=== PATIENT | female | born 1930 | race Caucasian/White ===

== ENCOUNTER 2016-11-07 10:54 | Emergency (ER) | payer MEDICARE ==
[~2016-11-07 10:54] MED LIST: atorvastatin; coumadin; lipitor; lisinopril; metoprolol
[2016-11-07 10:55] VITALS: BP 185/64; PULSE 87; RESP 20; O2SAT 95
--- NOTE | 2016-11-07 10:56 | ED.REPORT ---
HPI-Trauma Minor / Fall Date of Service Nov 07, 2016 ED Provider: Dr. Pipo Alcala M.D. An 83 year old female with a history of hypertension, hyperlipidemia, extensive peripheral vascular disease, memory loss, atherosclerosis, sick sinus syndrome, and previous [place] on warfarin s/p pacemaker placement presents to the ED via EMS from her assisted living home with head trauma after an unwitnessed fall this morning when she woke up. She hit the back of head on the corner of a table but is unsure whether or not she lost consciousness. EMS found her hypotensive with a systolic pressure of 224 but otherwise normal vital signs. The patient denies any pain or other symptoms. She is a poor historian. Her current anticoagulation status is unknown. Nursing Notes Stated Complaint: GLF Nursing Notes Reviewed: Yes Allergies: Coded Allergies: diltiazem (Verified Allergy, Severe, 11/09/12) lorazepam (Verified Allergy, Intermediate, 11/07/16) pantoprazole (Verified Allergy, Intermediate, 11/07/16) Scheduled Aspirin Chew (Aspirin Chew) 81 Mg Chew 81 MG PO DAILY Lisinopril (Lisinopril) 5 Mg Tablet 5 MG PO DAILY Paroxetine (Paroxetine) 10 Mg Tablet 10 MG PO DAILY General Time Seen by MD: 10:56 Chief Complaint Fall, Head injury Hx Obtained From: Patient, EMS Unable to Obtain Hx: Patient condition Arrived By: Ambulance Onset Occurred: 1 - 4 hours ago Symptom Duration: Since onset Caused by: Accidental Location: Head Quality: Painful Severity: Current: Moderate Severity: Maximum: Moderate Associated with: Denies: Shortness of breath, Vomiting Pertinent Negative: Relieved by nothing Context: Immunizations Unknown Recent Healthcare: No recent doctor visit Past Medical History Past Medical History Notes: Past Medical History Anticoagulated Hyperlipidemia Hypertension Extensive peripheral vascular disease, status post fem-fem grafting with multiple revisions Anxiety Atherosclerosis of [place] arteries of extremities with intermittent claudication, bilateral legs Memory loss Hx of [place] Sick sinus syndrome Past Surgical History Pacemaker placement Smoking History Never Smoker Social History Lives in assisted living facility Alcohol Use: Denies alcohol use Drug Use: Denies drug use Ambulatory Status Independent Review of Systems Respiratory: Denies: Non-productive cough, Shortness of breath Musculoskeletal: Denies: Neck pain Neurologic: Denies: Headache Complete sys rev & neg: except as marked. GI: Denies: Vomiting Physical Exam Physical Exam Notes: Initial Vital Signs Vital Signs (First) Date Time Temp Pulse Resp B/P Pulse Ox O2 Delivery O2 Flow Rate FiO2 11/07/16 10:55 36.8 87 20 185/64 95 Room Air Initial VS: Reviewed ENT: Conjunctiva normal, No scleral icterus Respiratory: Breath sounds normal, Clear to auscultation, No respiratory distress Cardiovascular: Regular rate & rhythm, Heart sounds normal Abdomen / GI: Soft, Non-tender Skin: Warm, Dry, No cyanosis Psychiatric: Mood/affect normal, Behavior normal General/Constitutional: Awake, Alert, No acute distress Head / Eyes: Normocephalic Subcutaneous lipoma on left side of occiput with no evidence of intracranial trauma Neurologic: Speech NL, No motor deficits, No sensory deficits Interpretation & Diagnostics Lab Results Interpretation Result Diagram: 11/07/16 1100 11/07/16 1100 Test 11/07/16 11:00 White Blood Count 9.4th/mm3 (3.8-10.1) Red Blood Count 4.44mil/mm3 (3.90-5.20) Hemoglobin 13.3g/dL (12.0-15.6) Hematocrit 41.9% (35.0-46.0) Mean Corpuscular Volume 94.4fL (81-100) Mean Corpuscular Hemoglobin 30.0pg (27.0-35.0) Mean Corpuscular Hemoglobin Concent 31.7% (32.0-37.0) Red Cell Distribution Width 16.7% (12.3-15.4) Platelet Count 244bil/L (150-400) Neutrophils (%) (Auto) 67.6% (40-74) Lymphocytes (%) (Auto) 21.8% (14-46) Monocytes (%) (Auto) 7.9% (4-12) Eosinophils (%) (Auto) 1.7% (0-5) Basophils (%) (Auto) 0.4% (0-3) Prothrombin Time 10.9sec (8.1-12.5) Prothromb Time International Ratio 1.02ratio Sodium Level 143mEq/L (134-144) Potassium Level 4.7mEq/L (3.5-5.2) Chloride Level 106mEq/L (97-108) Carbon Dioxide Level 24mmol/L (18-29) Blood Urea Nitrogen 23mg/dL (8-27) Creatinine 0.97mg/dL (0.57-1.00) Estimat Glomerular Filtration Rate 78mL/min (>59) Glucose Level 95mg/dL (60-99) Calcium Level 9.5mg/dL (8.5-10.1) Total Bilirubin 0.6mg/dL (0.0-1.2) Aspartate Amino Transf (AST/SGOT) 16U/L (0-50) Alanine Aminotransferase (ALT/SGPT) 13U/L (0-32) Alkaline Phosphatase 103U/L (25-165) Total Protein 7.3g/dL (6.4-8.4) Albumin 4.1g/dL (3.4-5.0) Re-Eval/Medical Decision Med Decision/Clinical Course Was an initial report of patient being on warfarin, family and patient stated this is no longer the case. Source of Hx: Old records Re-Evaluation/Progress #1: Time of Eval: 11:48 Patient Status: Condition improved Re-Evaluation/Progress Note: Discussed with patient lab results, diagnosis, and plan for discharge. Follow-up and return to the ER instructions given. Patient agrees with plan for care and all questions were addressed. Re-Evaluation/Progress #2: Time of Eval: 12:06 Re-Evaluation/Progress Note: Discussed patient's case with her son. He agrees with plan for care and all questions were addressed. Counseled Regarding: Diagnosis, Lab results, Need for follow-up, When/why to return to ED Discharge & Departure Impression: Primary Impression: Fall from ground level Disposition: Home Discharge Condition All VS Reviewed: Yes Condition: Stable Patient Instructions: Fall Prevention for Older Adults (GEN) Additional Instructions: No significant injury is identified today. Your INR is normal, no evidence of anticoagulation currently. If you have any significant ongoing problems, call your doctor or return to the emergency department. Oseiibe Attestation Portions of this note were transcribed by Meghann Hernandez. I, Dr. Alcala, personally performed the history, physical exam, and medical decision-making; I reviewed and confirmed the accuracy of the information in the transcribed note. Signed by: Nicole Humphries, 11/07/2016, 12:31 Pipo Alcala MD Nov 07, 2016 10:56 MEGHANN HERNANDEZ Nov 07, 2016 11:16
[2016-11-07 11:22] LABS: BASOPHILS % (AUTO) 0.4 % (0-3); EOSINOPHILS % (AUTO) 1.7 % (0-5); MONOCYTES % (AUTO) 7.9 % (4-12); Mean Corpuscular Volume 94.4 fL (81-100); NEUTROPHILS % (AUTO) 67.6 % (40-74); Platelet Count 244 bil/L (150-400)
[2016-11-07 11:25] LABS: INR 1.02 ratio
[2016-11-07 12:15] VITALS: BP 173/110; PULSE 70; RESP 20; O2SAT 94
[2016-11-07] MEDS ORDERED: PARO10TA2 PO (12:16)
[2016-11-07] MEDS ORDERED: PARO20TA5 PO (12:16)
[2016-11-07] MEDS ORDERED: LISI-571 PO (12:17)
[2016-11-07] MEDS ORDERED: ASPI81TA3 PO (12:17)
== END 2016-11-07 12:15 | disposition home or self-care (01) ==
LOC: EDBD 10:54 → EDUNIT# 10:54 → SED 10:54
DX: S09.90XA Unspecified injury of head, initial encounter (principal); W18.30XA Fall on same level, unspecified, initial encounter; Y93.89 Activity, other specified; Y99.8 Other external cause status; Y92.122 Bedroom in nursing home as the place of occurrence of the external cause; I10 Essential (primary) hypertension; I25.2 Old myocardial infarction; Z86.79 Personal history of other diseases of the circulatory system; Z86.39 Personal history of other endocrine, nutritional and metabolic disease; Z95.0 Presence of cardiac pacemaker; Z79.01 Long term (current) use of anticoagulants; Z79.82 Long term (current) use of aspirin; Z88.8 Allergy status to other drugs, medicaments and biological substances; Z88.5 Allergy status to narcotic agent

== ENCOUNTER 2016-12-05 08:45 | Inpatient (IN) | payer MEDICARE ==
[~2016-12-05] VITALS: Ht 170.2 cm; Wt 74.2 kg
[~2016-12-05 08:45] MED LIST changes: +ASPI81TA3 PO; +LISI-571 PO; +PARO10TA2 PO; -atorvastatin; -coumadin; -lipitor; -lisinopril; -metoprolol
[2016-12-05 08:54] VITALS: BP 189/79; PULSE 83; O2SAT 99
[2016-12-05 09:51] LABS: BASOPHILS % (AUTO) 0.5 % (0-3); EOSINOPHILS % (AUTO) 2.9 % (0-5); MONOCYTES % (AUTO) 9.2 % (4-12); Mean Corpuscular Hemoglobin 30.5 pg (27.0-35.0); Mean Corpuscular Volume 96.5 fL (81-100); NEUTROPHILS % (AUTO) 68.9 % (40-74); Platelet Count 223 bil/L (150-400)
[2016-12-05 10:12] LABS: APPEARANCE,URINE CLEAR (CLEAR,HAZY); COLOR,URINE YELLOW (YELLOW); OCCULT BLOOD,URINE NEGATIVE (NEGATIVE); PH,URINE 5.5 (5.0-8.0); UROBILINOGEN,URINE NORMAL (NORMAL)
--- NOTE | 2016-12-05 11:04 | DRSVH ---
PROCEDURE: US VENOUS LEG DUPLEX BILATERAL INDICATIONS: BLE swelling R>L TECHNIQUE: Real-time imaging, as well as color and pulse Doppler interrogation, were performed of the deep veins of both legs from the inguinal ligament to the popliteal fossa. COMPARISON: None. FINDINGS: The more superior right-sided deep veins are normally compressible, and free of intralumin al thrombus. Color and pulse Doppler demonstrate normal phasic intravascular flow. There is normal augmentation response to distal compression maneuver in these vessels. In contrast, within the dista l superficial femoral vein there is nonocclusive clot and this extends into the popliteal vein where occlusive clot seen and posterior tibial vein occlusive clot also is within the catheter. No DVT is seen at the left lower extremity.. IMPRESSION: Left lower extremity free of thrombosis. Right lower extremity superiorly shows no throm bosis within the deep venous system but there is partially occlusive thrombus in the distal superfici al femoral vein contiguously extending into the popliteal vein and occlusive thrombus is also seen in one of the 2 posterior tibial paired veins. Dictated by: Rodrigo Ricketts M.D. on 12/05/2016 at 10:58 Approved by: Rodrigo Ricketts M.D. on 12/05/2016 at 11:03
--- NOTE | 2016-12-05 11:08 | DRSVH ---
PROCEDURE: X-RAY CHEST ONE VIEW, PORTABLE ([id number]) INDICATIONS: probable chf TECHNIQUE: One view of the chest was acquired. COMPARISON: [facility], CR, CHEST 2VW, 11/09/2012, 3:56. [facility], CR, NICOLE [address] 1VW (PORTABLE), 02/10/2010, 19:52. FINDINGS: Surgical changes and devices: There is a cardiac pacemaker in expected position. Sternotomy and CABG. Lungs and pleura: Left basilar scars/atelectasis. No pleural effusions or pneumothorax. Mediastinum: Mediastinal contours appear normal. Heart size is normal. Bones and chest wall: No suspicious bony lesions. Overlying soft tissues appear unremarkable. IMPRESSION: No acute cardiopulmonary disease. Dictated by: David Evans M.D. on 12/05/2016 at 10:55 Approved by: David Evans M.D. on 12/05/2016 at 11:07
--- NOTE | 2016-12-05 12:46 | ED.REPORT ---
HPI-General Illness Date of Service Dec 05, 2016 ED Provider: Javier Cote MD 86yoF with PMH remarkable for CAD with CABGx2 (reportedly in 2009) as well as a pacer placed in 2009 for sick sinus syndrome as well as PVD with numerous stents placed in her legs bilaterally who presents with failure to thrive from [facility]. 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 Her son in law came in with her today. He reports that she was seen by her PCP Dr. Rojas at [facility] 2 days ago after numerous falls and diagnosed with UTI and given Nitrofurantoin. The patient was not improving and was having increased leg swelling and was told to come to the hospital for evaluation. The patient denies dysuria, increased urinary frequency or urgency. She denies Fever chills or night sweats. She states that last week she had diarrhea. Nursing Notes Stated Complaint: WEAKNESS Chief Complaint: General Complaint Nursing Notes Reviewed: Yes Allergies: Coded Allergies: diltiazem (Verified Allergy, Severe, 11/09/12) lorazepam (Verified Allergy, Intermediate, 11/07/16) pantoprazole (Verified Allergy, Intermediate, 11/07/16) Scheduled Aspirin Chew (Aspirin Chew) 81 Mg Chew 81 MG PO QAM Lisinopril (Lisinopril) 5 Mg Tablet 5 MG PO QAM Paroxetine (Paroxetine) 20 Mg Tablet 20 MG PO QAM General Time Seen by MD: 09:00 [facility] Chief Complaint Not feeling well, Other (leg swelling) Hx Obtained From: Patient, Son (in law), Primary care provider (called [facility] and spoke with Dr. Rojas's partner Casey Mcneal M.D.) Arrived By: Ambulance Sudden in Onset?: No Onset Occurred: More than a week ago... (2 weeks) Context of Onset: Recent antibiotic use Symptom Duration: Since onset Severity: Current: No pain currently Severity: Maximum: No pain Recent Healthcare: Recent doctor visit Similar Sx Previous: No Past Medical History Past Medical History Hyperlipidemia Hypertension CAD with CABG x2 Extensive peripheral vascular disease, status post fem-fem grafting with multiple revisions Anxiety Atherosclerosis of [place] arteries of extremities with intermittent claudication, bilateral legs Memory loss Hx of [place] Sick sinus syndrome Reports: Hyperlipidemia, Hypertension Past Surgical History Pacemaker placement Reports: CABG Smoking History Never Smoker Social History Lives in assisted living facility Alcohol Use: Denies alcohol use Drug Use: Denies drug use Ambulatory Status Independent Review of Systems Complete sys rev & neg: except as marked. Physical Exam Vital Signs Vital Signs Date Time Temp Pulse Resp B/P Pulse Ox O2 Delivery O2 Flow Rate FiO2 12/05/16 08:54 36.6 83 189/79 99 Room Air General/Constitutional: Well-developed, Well-nourished Head / Eyes: Atraumatic, Normocephalic, PERRL ENT: Mucous membranes moist, Conjunctiva normal, No scleral icterus Neck: Supple, Non-tender, Full range of motion Abdomen / GI: Soft, Non-tender, No guarding, No rebound, No distention Back: No CVA tenderness Lymphatic: No lymphadenopathy General/Constitutional: Awake, Alert, No acute distress, Cooperative, Not toxic appearing Alertness: Positive: Disoriented Respiratory / Chest: Breath sounds = bilat, No respiratory distress, No wheezing, No stridor, No chest tenderness Rales / Rhonchi: Positive: Rales bilateral up to 1/3 Chest Wall / Ribs: Positive: Implanted cardiac device Heart Sounds / Murmur: Positive: Systolic murmur present.. (moderate left upper sternal boarder) Lower Ext Edema: Positive: Bilateral 3+, Knee, Pitting Abdomen: Non-tender, No guarding, No rebound, BS normoactive Skin: Warm Color / Condition: Positive: Erythema localized (lower extremities) lower extremity induration, erythema, and warmth consistent with venous stasis changes Lower right extremity pretibial abrasion with serosangious drainage, without purulence or fluctuance noted Mental Status: Positive: Disoriented to place, Disoriented to time Psychiatric: Mood NL Abnormal Mood/Affect: Positive: Flat affect Interpretation & Diagnostics Lab Results Interpretation Result Diagram: 12/05/16 0940 12/05/16 0940 Test 12/05/16 09:40 12/05/16 09:47 White Blood Count 7.8th/mm3 (3.8-10.1) Red Blood Count 4.29mil/mm3 (3.90-5.20) Hemoglobin 13.1g/dL (12.0-15.6) Hematocrit 41.4% (35.0-46.0) Mean Corpuscular Volume 96.5fL (81-100) Mean Corpuscular Hemoglobin 30.5pg (27.0-35.0) Mean Corpuscular Hemoglobin Concent 31.6% (32.0-37.0) Red Cell Distribution Width 16.3% (12.3-15.4) Platelet Count 223bil/L (150-400) Neutrophils (%) (Auto) 68.9% (40-74) Lymphocytes (%) (Auto) 18.0% (14-46) Monocytes (%) (Auto) 9.2% (4-12) Eosinophils (%) (Auto) 2.9% (0-5) Basophils (%) (Auto) 0.5% (0-3) Sodium Level 145mEq/L (134-144) Potassium Level 3.9mEq/L (3.5-5.2) Chloride Level 106mEq/L (97-108) Carbon Dioxide Level 23mmol/L (18-29) Blood Urea Nitrogen 21mg/dL (8-27) Creatinine 0.64mg/dL (0.57-1.00) Estimat Glomerular Filtration Rate 126mL/min (>59) Glucose Level 103mg/dL (60-99) Calcium Level 9.3mg/dL (8.5-10.1) Total Bilirubin 0.6mg/dL (0.0-1.2) Aspartate Amino Transf (AST/SGOT) 17U/L (0-50) Alanine Aminotransferase (ALT/SGPT) 18U/L (0-32) Alkaline Phosphatase 117U/L (25-165) Pro-B-Type Natriuretic Peptide 203.7pg/mL (0-738) Total Protein 7.2g/dL (6.4-8.4) Albumin 4.4g/dL (3.4-5.0) Procalcitonin 0.06ng/mL (0.00-0.08) Hold Martinez Top Tube Received (Received) Urine Color Yellow (YELLOW) Urine Appearance Clear (CLEAR,HAZY) Urine pH 5.5 (5.0-8.0) Urine Specific [place] 1.025 (1.003-1.035) Urine Protein Negativemg/dL (NEG,TRACE) Urine Glucose (UA) Negativemg/dL (NEGATIVE) Urine Ketones Tracemg/dL (NEGATIVE) Urine Occult Blood Negative (NEGATIVE) Urine Nitrite Negative (NEGATIVE) Urine Bilirubin Negative (NEGATIVE) Urine Urobilinogen Normalmg/dL (NORMAL) Urine Leukocyte Esterase Negative (NEGATIVE) Urine RBC 0-2/hpf (0-2) Urine WBC 0-5/hpf (0-5) Urine Epithelial Cells Occasional/hpf (NONE-MOD) Urine Crystals None seen (NONE SEEN) Urine Bacteria None/hpf (NONE-FEW) Urine Hyaline Casts None/lpf (NONE) Urine Granular Casts None seen (NONE SEEN) Urine Waxy Casts None seen (NONE SEEN) Urine Red Blood Cell Casts None seen (NONE SEEN) Urine White Blood Cell Casts None seen (NONE SEEN) Urine Mucus None seen (None Seen) Urine Trichomonas None seen (NONE SEEN) Urine Yeast None (NONE SEEN) Urinalysis Comment None Urine Culture Reflexed Not indicated Re-Eval/Medical Decision Med Decision/Clinical Course US showed occlusive DVT in right popliteal. Patient has known coronary artery disease but no previous diagnosis of CHF. Clinical signs of CHF with new murmur should obtain and echo and begin lasix therapy as well as beta sierra if tollerated, patient is already on ACEI. Plan to admit given multiple comorbidities and need for anticoagulation with recent history of falls, allow admitting physician to decide on heparin drip v lovenox with out without bridge to coumadin or novel anticoagulant with reversibility Pradaxa Source of Hx: [place] Consultation : Referral / Consult Name: Oscar Candelario MD Consulted With: Hospitalist Requested Call at: 11:30 Aws Solution Architect: Accepts admit Discharge & Departure Primary Impression: DVT of popliteal vein Additional Impression: CHF exacerbation Disposition: ADMITTED TO HOSPITAL Referrals: Natividad Rojas MD (PCP) Attending Statement I saw and evaluated the patient with the resident as above. I independently evaluated the patient and agree with plan as above. In brief, 86-year-old female history of CAD and blood clots in the past presenting with frequent falls and right lower extremity swelling and pain. Right lower extremity ultrasound shows occlusive DVT popliteal. No sign symptoms PE at this time. Patient with frequent falls at home. She feels very weak. Patient will be admitted for DVT, weakness, frequent falls. We will start on Lovenox defer oral anticoagulation to hospitalist. copies to: Natividad Rojas MD, NICHOLAS K DO Dec 05, 2016 09:47 Javier Cote MD Dec 05, 2016 14:19
[2016-12-05] MEDS ORDERED: Acetaminophen 32 mg/mL 5 mL Liquid PO ONE (13:05)
[2016-12-05] MEDS ORDERED: PARO20TA5 PO (13:14)
[2016-12-05] MEDS ORDERED: Acetaminophen 32.5 mg/mL 20 mL Liquid PO ONE (13:20)
[2016-12-05] MEDS ORDERED: Ondansetron 2 mg/mL 2 mL Inj IVPUSH PRN (13:35)
[2016-12-05] MEDS ORDERED: Alum-Mag Hydrox-Simeth 30 mL Suspension PO PRN (13:35)
[2016-12-05] MEDS ORDERED: Polyethylene Glycol (PEG) 17 Gm Powder PO PRN (13:35)
[2016-12-05 14:23] VITALS: BP 144/78; PULSE 77; RESP 16
[2016-12-05 14:44] VITALS: BP 168/84; PULSE 78; RESP 18; O2SAT 95
--- NOTE | 2016-12-05 16:47 | DRSVH ---
[facility] [address] [place] [address] Echocardiogram Report Name: EDWINA MEDINA LStudy Date: 12/05/2016 Height: 67 in Hospital Exam Location: [facility] Weight: 175 lb Gender: Female BSA: 1.9 m2 : 1930 Age: 86 yrs BP: 189/79 mmHg Reason For Study: CHF, NEW MURMUR History: CABG,PACEMAKER Ordering Physician: HOSPITALIST [facility] Performed By: Roshni Vann Referring Physician: Dr. Natividad Rojas Interpretation Summary Left ventricular wall thickness is mildly increased. Left ventricular systolic function is normal. The ejection fraction is estimated to be 60-65%. The right ventricle is normal in size and function. The right ventricular systolic pressure is estimated at 37 mmHg assuming a right atrial pressure of 3 mm Hg. Both atria are normal in size. There is mild mitral regurgitation. There is mild tricuspid regurgitation. There is no other significant valvular heart disease. The aortic arch is mildly enlarged. Procedure: A two-dimensional transthoracic echocardiogram with color flow and Doppler was performed. The study quality was technically adequate. The subcostal views were difficult to obtain and are suboptimal in quality. There is no prior echocardiogram noted for this patient. The patient has a paced rhythm. Left Ventricle: The left ventricle is normal in size. Left ventricular wall thickness is mildly increased. Left ventricular systolic function is normal. The ejection fraction is estimated to be 60-65%. There are no focal wall motion abnormalities. Spectral Doppler of the mitral valve is reversed, with an E/A wave ratio < 1.0. Right Ventricle: The right ventricle is normal in size and function. Atria: Both atria are normal in size. There is no Doppler evidence for an atrial septal defect. Mitral Valve: The mitral valve leaflets appear mildly thickened, but open well. There is mild mitral regurgitation. Aortic Valve: The aortic valve is trileaflet. The aortic valve is slightly calcified. The aortic valve opens well. There is no hemodynamically significant valvular aortic stenosis. No aortic regurgitation is present. Tricuspid Valve: The tricuspid valve leaflets are thin and pliable. There is mild tricuspid regurgitation. The right ventricular systolic pressure is estimated at 37 mmHg assuming a right atrial pressure of 3 mm Hg. Pulmonic Valve: The pulmonic valve leaflets are thin and pliable; valve motion is normal. There is a trace or physiologic amount of pulmonic regurgitation. There is no other significant valvular heart disease. Great Vessels: The aortic root is normal size. The dimensions of the ascending aorta are normal. The aortic arch is mildly enlarged. The pulmonary artery is normal size. The IVC is of normal diameter and collapses greater than 50% with a sniff. This suggests a low right atrial pressure of 3 mm Hg. Pericardium/ Pleura There is no pericardial effusion. There is no pleural effusion. MMode/2D Measurements & Calculations LVIDd: 4.3 cm LA dimension: 4.4 cm RA long axis LVOT diam: 1.9 cm LVIDs: 2.7 cm AoV Opening FS: 36.0 % LA A2 area: 20.1 cm RA area EPSS: 0.44 cm LA A4 area: 22.5 cm Ao root diam IVSd: 0.84 cm LA length (vol) : 15.0 cm LVPWd: 1.0 cm RA vol asc Aorta Diam LA vol: 54.9 ml : 42.8 ml LA vol index RA Ao Arch Diam (Prox : 22.4 mm/ Trans): 3.4 cm : 28.7 ml/m2 RVDd major : 6.7 cm LV sam. diameter/BSA LV sys. diameter/BSA RVD2 (mid) (cm/m^2): 2.2 (cm/m^2): 1.4 : 3.3 cm Doppler Measurements & Calculations Ao V2 max MV E max david MV E/A: 0.81 TR max david : 175.9 cm/sec : 96.8 cm/sec Pulm A Revs Dur : 291.8 cm/sec Ao max PG MV A max david TR max PG : 12.4 mmHg : 120.0 cm/sec MV A dur: 0.12 sec : 34.1 mmHg Ao mean PG MV P1/2t: 58.8 msec PA V2 max : 86.0 cm/sec LVOT Max David PA mean PG : 80.0 cm/sec VALERIA(I,D): 1.4 cm PA Accel Time sev ratio : 0.08 sec MV dec time MV P1/2t max david Ao V2 mean LV V1 max PG : 0.20 sec : 117.9 cm/sec Ao V2 VTI: 40.5 cm LV V1 VTI MVA(P1/2t): 3.7 cm2 : 21.2 cm VALERIA(V,D): 1.2 cm2 PA V2 mean VALERIA indexed to BSA Pulm A Revs Dur - MV : 55.7 cm/sec (cm^2/m^2): 0.74 A Dur: 0.01 msec Reading Physician:PM
--- NOTE | 2016-12-05 16:49 | NUR ---
ADMIT Patient was received from the ED via a gurney. Patient denies pain. Tolerating liquids PO and her diet well. Denies nausea. No emesis noted. Denies SOB. Skin issues noted. [facility]-Leonel Harmon made aware and he will come to assess the patient. Oriented to room and call light. Motley alarm is on for safety. Patient has HX of falls and is confused at baseline. Will continue to monitor. Addendum: 12/05/16 at 1836 by ADI JAVED RN PAIN/ACTIVITY [facility] services assessed the patient and placed dressings over her BLE. Patient is complaining of pain in her L leg. Tylenol 650 mg PO administered. Patient got up to the BSC with 2 PA. BLE is weak and gait is unsteady. Dr. Ozuna was made aware. PT/OT eval was ordered. Son-in-law is at the bedside at this time. Motley alarm is on.
[2016-12-05] MEDS: Sodium Chloride LOK Flush 10 mL Syringe IVFLUSH SCH (17:43)
--- NOTE | 2016-12-05 18:26 | NUR ---
Wound Wound evaluation requested, [facility] contacted by trever Apple seen at bedside. 86 yo female admitted to [facility] with weaknss, DVT (r LLeg) and new onset CHF. Legs are edematous bilaterally, right upper arce is bruised with possible hematoma formation at lateral compartment measuring approx 10 cm L x 5 cm W. she has 2 ulcers at the arce which are chronic appearing in nature Distal measures 3 cm L x 2 cm W X flush. Proximal 3 cm L x 2 cm W x flush. Left arce has a 1 cm L x 1 cm W x flush skin tear and the left lateral ankle has a 1 cm x 1 cm x 0.1 cm ulcer. None of these ulcers are infected, hematoma on right is worrisome in that it could breakdown into a large wound in the near future. All wounds were covered with hydrogel and adhesive foam and tape. Given this patients fragile skin and edema would recommend that dressings remain in place till wound care returns on Thursday. Addendum: 12/05/16 at 1835 by TATY GOLDBERG Wounds weer all cleaned with saline moistened gauze.
[2016-12-05 20:01] LABS: INR 0.98 ratio
[2016-12-05] MEDS ORDERED: NITROFURANTOIN MACROCRYSTAL 25 MG PO SCH (20:30)
--- NOTE | 2016-12-05 21:15 | PCM.CONPHA ---
Subjective Date of Service: Dec 05, 2016 Reason for Pharmacy Consult: Anticoagulation Management Objective Vital Signs Date Time Temp Pulse Resp B/P Pulse Ox O2 Delivery O2 Flow Rate FiO2 12/05/16 14:44 36.7 78 18 168/84 95 Room Air 12/05/16 14:23 77 16 144/78 12/05/16 08:54 36.6 83 189/79 99 Room Air Weight (Kilograms): 79.55 Height (Feet): 5 Height (Inches): 7 Test 12/05/16 09:40 12/05/16 09:47 White Blood Count 7.8th/mm3 (3.8-10.1) Red Blood Count 4.29mil/mm3 (3.90-5.20) Hemoglobin 13.1g/dL (12.0-15.6) Hematocrit 41.4% (35.0-46.0) Mean Corpuscular Volume 96.5fL (81-100) Mean Corpuscular Hemoglobin 30.5pg (27.0-35.0) Mean Corpuscular Hemoglobin Concent 31.6% (32.0-37.0) Red Cell Distribution Width 16.3% (12.3-15.4) Platelet Count 223bil/L (150-400) Neutrophils (%) (Auto) 68.9% (40-74) Lymphocytes (%) (Auto) 18.0% (14-46) Monocytes (%) (Auto) 9.2% (4-12) Eosinophils (%) (Auto) 2.9% (0-5) Basophils (%) (Auto) 0.5% (0-3) Prothrombin Time 10.5sec (8.1-12.5) Prothromb Time International Ratio 0.98ratio Sodium Level 145mEq/L (134-144) Potassium Level 3.9mEq/L (3.5-5.2) Chloride Level 106mEq/L (97-108) Carbon Dioxide Level 23mmol/L (18-29) Blood Urea Nitrogen 21mg/dL (8-27) Creatinine 0.64mg/dL (0.57-1.00) Estimat Glomerular Filtration Rate 126mL/min (>59) Glucose Level 103mg/dL (60-99) Calcium Level 9.3mg/dL (8.5-10.1) Total Bilirubin 0.6mg/dL (0.0-1.2) Aspartate Amino Transf (AST/SGOT) 17U/L (0-50) Alanine Aminotransferase (ALT/SGPT) 18U/L (0-32) Alkaline Phosphatase 117U/L (25-165) Pro-B-Type Natriuretic Peptide 203.7pg/mL (0-738) Total Protein 7.2g/dL (6.4-8.4) Albumin 4.4g/dL (3.4-5.0) Procalcitonin 0.06ng/mL (0.00-0.08) Hold Martinez Top Tube Received (Received) Urine Color Yellow (YELLOW) Urine Appearance Clear (CLEAR,HAZY) Urine pH 5.5 (5.0-8.0) Urine Specific Lincoln 1.025 (1.003-1.035) Urine Protein Negativemg/dL (NEG,TRACE) Urine Glucose (UA) Negativemg/dL (NEGATIVE) Urine Ketones Tracemg/dL (NEGATIVE) Urine Occult Blood Negative (NEGATIVE) Urine Nitrite Negative (NEGATIVE) Urine Bilirubin Negative (NEGATIVE) Urine Urobilinogen Normalmg/dL (NORMAL) Urine Leukocyte Esterase Negative (NEGATIVE) Urine RBC 0-2/hpf (0-2) Urine WBC 0-5/hpf (0-5) Urine Epithelial Cells Occasional/hpf (NONE-MOD) Urine Crystals None seen (NONE SEEN) Urine Bacteria None/hpf (NONE-FEW) Urine Hyaline Casts None/lpf (NONE) Urine Granular Casts None seen (NONE SEEN) Urine Waxy Casts None seen (NONE SEEN) Urine Red Blood Cell Casts None seen (NONE SEEN) Urine White Blood Cell Casts None seen (NONE SEEN) Urine Mucus None seen (None Seen) Urine Trichomonas None seen (NONE SEEN) Urine Yeast None (NONE SEEN) Urinalysis Comment None Urine Culture Reflexed Not indicated Assessment/Plan Assessment/Plan Warfarin per Rx Indication: DVT - bridging with enoxaparin INR 0.98; Goal 2-3 Will initiate with 2.5mg tonight Daily INR Mateo Hunt PharmD Dec 05, 2016 21:15
[2016-12-05 21:30] VITALS: BP 173/79; PULSE 76; RESP 16; O2SAT 93
[2016-12-05] MEDS: Nitrofurantoin Monohyd-Macrocryst 100 mg Capsule PO SCH (22:00)
--- NOTE | 2016-12-05 22:44 | PCM.HPMED ---
Subjective Date of Service Dec 05, 2016 Primary Provider: Admitting Physician: Boone Ozuna MD Primary Care Physician: Natividad Rojas MD Attending Physician: Boone Ozuna MD Admit Status: From the Emergency Department, Full Admit, Admit to [place] Team Chief Complaint: Frequent falls and increased leg swelling of the right lower extremity History of Present Illness: 86yoF with PMH remarkable for CAD with CABGx2 (reportedly in 2009) as well as a pacer placed in 2010 for sick sinus syndrome as well as PVD with numerous stents placed in her legs bilaterally who presents with failure to thrive from [facility] living. 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 Her son in law came in with her today. He reports that she was seen by her PCP Dr. Rojas at [facility] 2 days ago after numerous falls and diagnosed with UTI and given Nitrofurantoin. The patient was not improving and was having increased leg swelling and was told to come to the hospital for evaluation. The patient denies dysuria, increased urinary frequency or urgency. She denies fever, chills or night sweats. She states that last week she had diarrhea. Urinary tract infection -Dr. Alicia's office records indicate that patient had a urinalysis which was indicative of urinary tract infection. He reports that a urine culture was obtained and patient was placed on Macrobid 100 mg by mouth twice a day. -We will continue Macrobid 100 mg by mouth twice a day -Gentle IV hydration -Chek final urine culture result. -Recent diarrhea approximately a week ago. This apparently has resolved. -We will give gentle IV hydration -Recent increasing falls at home with ulcer on her right lower extremity, contusion of her right knee and laceration of her right lower extremity. -Suspect this could be due to weakness secondary to the urinary tract infection and recent diarrhea mentioned above. -We will consult physical therapy and occupational therapy. -Continue antibiotics and gentle IV hydration. Review of Systems: General: Patient relates and family relates that the patient has increasing weakness and increasing falls lately. HEENT: Patient has no headache, patient has no diplopia, patient has no changes in vision. She does wear glasses for reading. Patient has no problems with their ears, nose or throat. Patient has no known dental problems, other than several crowns on her front teeth.. Patient has no pharyngitis or history of thrush. Neck: Patient has no stiffness in the neck. Patient has no lymphadenopathy. Patient has no other problems with their neck. Pulmonary: Patient has no shortness of breath, no cough, no expectoration of sputum. Patient has no pleurisy. Patient has no chest pain. Patient has no history of asthma or COPD. Cardiovascular: Patient has no chest pain. Patient has no history of heart murmur that she is aware of. Patient has no palpitations. Patient does have a history of a non-ST elevated myocardial infarction 1 in January 2010. Patient also has a history of hyperlipidemia with coronary artery disease. Patient has a history of having urgent coronary artery bypass graft surgery 2 vessel in January 2010. Patient does have history of sick sinus syndrome and had a pacemaker placed. Gastrointestinal: Patient has no history of hepatitis A, B or C. Patient has no history of peptic ulcer disease. Patient has no history of gastroesophageal reflux disease. Patient has no history of nausea, vomiting, or diarrhea. Patient has no history of hematemesis, hematochezia, or melena. Patient has no history of colitis. Renal: Patient has no history of kidney disease. She does not remember a history of kidney stones, however her son in law remembers that she did have a kidney stone or kidney stones in the past. Genitourinary: Patient has no history of dysuria or frequency as she is aware of. However, she does suffer from incontinence and wears depends. Patient has no other previous history of genitourinary problems. Musculoskeletal: Patient has no history of muscular skeletal problems. Neurologic: Patient has no history of stroke, no history of seizure, no history of TIA. Psychiatric: Patient has no history of psychiatric problems. The remainder of the entire review of systems was reviewed with patient and is as mentioned above otherwise negative. Allergies Coded Allergies: diltiazem (Verified Allergy, Severe, 11/09/12) lorazepam (Verified Allergy, Intermediate, 11/07/16) pantoprazole (Verified Allergy, Intermediate, 11/07/16) Home Medications Scheduled Aspirin Chew (Aspirin Chew) 81 Mg Chew 81 MG PO QAM Lisinopril (Lisinopril) 5 Mg Tablet 5 MG PO QAM Paroxetine (Paroxetine) 20 Mg Tablet 20 MG PO QAM Patient has eliminated many medications including warfarin from her daily medication regimen due to her Anabaptist science beliefs. However, she is agreeable to use warfarin again and other medications if necessary. PMH Hyperlipidemia Hypertension CAD with CABG x2 Extensive peripheral vascular disease, status post fem-fem grafting with multiple revisions Anxiety Atherosclerosis of chitina arteries of extremities with intermittent claudication, bilateral legs Memory loss Hx of [place] Sick sinus syndrome Reports: Hyperlipidemia, Hypertension Surgical History Pacemaker placement CABG 2 vessel in January 2010 after cardiac catheterization revealed significant coronary artery disease in the LAD and obtuse marginal. Cardiac catheterization in January 2010. Femoral to femoral bypass surgery [address] Travis Lazo at [facility] in [place]. 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 He was also a heavy smoker. Her mother at the age of 95 Social History Hx Alcohol Use: No Hx Substance Use: No Hx Tobacco Use: No Smoking Status: Never Smoker Living Arrangement: Independent Shelter (patient lives at [facility]) Alone Additional Information Patient is a Anabaptist project scientist and never participated in smoking cigarettes, or drinking alcohol, or doing any illicit drugs. The patient has been 5 times her fifth left her 2 years ago and she remains but not . Her son Leonel Saravia has power of family law attorney and lives in [place]. She also has a daughter Marian and a son Adonis Monsalve and daughter Sherly on [facility] who is disabled. Patient's son-in-law Melquiades is to [place] and is very active in caring for her along with Marian. She also has another son who in a motorcycle accident after returning from [place]. After patient's left her and from her 2 years ago she was forced to sell the home that she was living in and was hoping to live and the rest of her life. She then had her move to [place] and this was somewhat devastating for her and affected her emotionally. Exam Vital Signs Vital Sign - Last Date Time Temp Pulse Resp B/P Pulse Ox O2 Delivery O2 Flow Rate FiO2 12/05/16 14:44 36.7 78 18 168/84 95 Room Air Exam General: Patient is lying supine in bed with her head elevated approximately 20- 30. She is in no apparent distress. HEENT: Head is atraumatic and normocephalic. Eyes: Pupils are equally round and reactive to light and accommodation. Extraocular muscles are intact. Sclera are white, anicteric. Subconjunctival mucosa is pink. Ears and nose are unremarkable. Oropharynx: There is no mucosal lesions, there is no thrush, there is no pharyngitis. Neck: Is supple, there are no nodes, or masses or tenderness. Chest: Is clear to auscultation and percussion. There are no rales, rhonchi, wheezes or rubs. Heart: Rate, rhythm is regular. There is grade 1 to 2/6 systolic murmur heard best at the left sternal border. There is no rub or gallop. Abdomen: Good bowel sounds are present. Abdomen is soft, nontender, no organomegaly or masses were appreciated. Extremities: Are symmetrical and well perfused. There is slight edema of the right lower extremity greater than the left, there is no cellulitis, no rash. However, there is some evidence of contusion and laceration from previous falls on her lower extremities. Neurologic: There are no focal neurological deficits. Cranial nerves II through XII are intact. There are no sensory or motor deficits. Patient is oriented to person and place but not to time and is pleasantly demented and she states that she played golf 2 weeks ago and plays tennis with her caregiver. The caregiver was present during the part of the interview and denies this. Psychiatric: Patients mood is calm and shows no sign of agitation. Genital: Deferred Rectal: Deferred Lab and Diagnostics Result Diagram: 12/05/1693912/05/16 0940 X-Rays, CTs and MRIs PROCEDURE: US VENOUS LEG DUPLEX BILATERAL INDICATIONS: BLE swelling R>L TECHNIQUE: Real-time imaging, as well as color and pulse Doppler interrogation, were performed of the deep veins of both legs from the inguinal ligament to the popliteal fossa. COMPARISON: None. FINDINGS: The more superior right-sided deep veins are normally compressible, and free of intraluminal thrombus. Color and pulse Doppler demonstrate normal phasic intravascular flow. There is normal augmentation response to distal compression maneuver in these vessels. In contrast, within the distal superficial femoral vein there is nonocclusive clot and this extends into the popliteal vein where occlusive clot seen and posterior tibial vein occlusive clot also is within the catheter. No DVT is seen at the left lower extremity.. IMPRESSION: Left lower extremity free of thrombosis. Right lower extremity superiorly shows no thrombosis within the deep venous system but there is partially occlusive thrombus in the distal superficial femoral vein contiguously extending into the popliteal vein and occlusive thrombus is also seen in one of the 2 posterior tibial paired veins. Dictated by: Rodrigo Ricketts M.D. on 12/05/2016 at 10:58 Approved by: Rodrigo Ricketts M.D. on 12/05/2016 at 11:03 PROCEDURE: X-RAY CHEST ONE VIEW, PORTABLE ([id number]) INDICATIONS: probable chf TECHNIQUE: One view of the chest was acquired. COMPARISON: [facility], CR, CHEST 2VW, 11/09/2012, 3:56. [facility], , CHEST 1VW (PORTABLE), 02/10/2010, 19:52. FINDINGS: Surgical changes and devices: There is a cardiac pacemaker in expected position. Sternotomy and CABG. Lungs and pleura: Left basilar scars/atelectasis. No pleural effusions or pneumothorax. Mediastinum: Mediastinal contours appear normal. Heart size is normal. Bones and chest wall: No suspicious bony lesions. Overlying soft tissues appear unremarkable. IMPRESSION: No acute cardiopulmonary disease. Dictated by: David Evans M.D. on 12/05/2016 at 10:55 Approved by: David Evans M.D. on 12/05/2016 at 11:07 Cardiac Echo Impressions Echocardiogram Report Name: EDWINA MEDINA LStudy Date: 12/05/2016 Height: 67 in Hospital Exam Location: [facility] Weight: 175 lb Gender: Female BSA: 1.9 m2 : 1930 Age: 86 yrs BP: 189/79 mmHg Reason For Study: CHF, NEW MURMUR History: CABG,PACEMAKER Ordering Physician: HOSPITALIST [facility] Performed By: Roshni Vann Referring Physician: Dr. Natividad Rojas Interpretation Summary Left ventricular wall thickness is mildly increased. Left ventricular systolic function is normal. The ejection fraction is estimated to be 60-65%. The right ventricle is normal in size and function. The right ventricular systolic pressure is estimated at 37 mmHg assuming a right atrial pressure of 3 mm Hg. Both atria are normal in size. There is mild mitral regurgitation. There is mild tricuspid regurgitation. There is no other significant valvular heart disease. The aortic arch is mildly enlarged. Assessment & Plan 86yoF with [facility] remarkable for CAD with CABGx2 (reportedly in 2009) as well as a pacer placed in 2010 for sick sinus syndrome as well as PVD with numerous stents placed in her legs bilaterally who presents with failure to thrive from [facility]. 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 Her son in law came in with her today. He reports that she was seen by her PCP Dr. Rojas at [facility] 2 days ago after numerous falls and diagnosed with UTI and given Nitrofurantoin. The patient was not improving and was having increased leg swelling and was told to come to the hospital for evaluation. The patient denies dysuria, increased urinary frequency or urgency. She denies fever, chills or night sweats. She states that last week she had diarrhea. Urinary tract infection -Dr. Alicia's office records indicate that patient had a urinalysis which was indicative of urinary tract infection. He reports that a urine culture was obtained and patient was placed on Macrobid 100 mg by mouth twice a day. -We will continue Macrobid 100 mg by mouth twice a day -Gentle IV hydration -Chek final urine culture result. -Recent diarrhea approximately a week ago. This apparently has resolved. -We will give gentle IV hydration -Recent increasing falls at home with ulcer on her right lower extremity, contusion of her right knee and laceration of her right lower extremity. -Suspect this could be due to weakness secondary to the urinary tract infection and recent diarrhea mentioned above. -We will consult physical therapy and occupational therapy. -Continue antibiotics and gentle IV hydration. Other ongoing problems: Hyperlipidemia consider statin use if patient agrees Hypertension continue lisinopril and diltiazem. CAD with CABG x2 vessel in January 2010 Extensive peripheral vascular disease, status post fem-fem grafting with multiple revisions Anxiety Atherosclerosis of chitina arteries of extremities with intermittent claudication, bilateral legs Memory loss Hx of [place] Sick sinus syndrome status post pacemaker placement Reports: Hyperlipidemia, Hypertension Pain Evaluation: Adequate Pain Control GI Prophylaxis: H2 sierra VTE Prophylaxis: Sub-Q Enoxaparin, Theraputic Anticoag with Warfarin Resuscitation Status: CPR: Attempt Resuscitation Boone Ozuna MD Dec 05, 2016 22:44
[2016-12-06] MEDS: Sodium Chloride LOK Flush 10 mL Syringe IVFLUSH SCH ×3 (00:30→16:30)
[2016-12-06 01:15] VITALS: BP 185/84; PULSE 73; RESP 16; O2SAT 92
--- NOTE | 2016-12-06 03:51 | NUR ---
Pain pt has been given PO tylenol for leg pain. it appears to be effective as pt has slept most of the night. she has dementia at baseline and does not use her call light but has a yomi alarm on. frequent rounding being done to anticipate needs. pt did become confused and pull out her IV, another one was placed in her R hand. she is a two person assist up to the BSC as she is shaky on her feet. care continues.
[2016-12-06 06:34] LABS: BASOPHILS % (AUTO) 0.8 % (0-3); EOSINOPHILS % (AUTO) 5.2 % (0-5); MONOCYTES % (AUTO) 9.9 % (4-12); Mean Corpuscular Hemoglobin 30.4 pg (27.0-35.0); NEUTROPHILS % (AUTO) 58.7 % (40-74); Platelet Count 205 bil/L (150-400)
[2016-12-06 06:40] VITALS: BP 174/88; PULSE 73; RESP 16; O2SAT 97
[2016-12-06] MEDS: PARoxetine 20 mg Tablet PO SCH (08:22)
[2016-12-06] MEDS: Nitrofurantoin Monohyd-Macrocryst 100 mg Capsule PO SCH ×2 (08:23→22:49)
--- NOTE | 2016-12-06 09:18 | PCM.PHAPRO ---
Progress Frequent falls and increased leg swelling of the right lower extremity Date Dec 06 INR 0.98 1.00 INR change 0.02 Warf Dose 2.5 4.0 Duke Ney Dec 06, 2016 09:18
--- NOTE | 2016-12-06 09:57 | NUR ---
Evaluation completed/discharge to nsg Please go to "Notes" then click on "Assessments and Notes" (bottom left corner of screen). Then select appropriate discipline tab on top of screen. up with nsg with FWW and CGA-Dennys, including gait with FWW in montalvo as shaila; no further PT
[2016-12-06 11:32] VITALS: BP 168/84; PULSE 82; RESP 16; O2SAT 94
--- NOTE | 2016-12-06 11:40 | DRSVH ---
PROCEDURE: X-RAY CHEST, TWO VIEWS ([id number]) INDICATIONS: Follow up for CHF TECHNIQUE: 2 views of the chest were acquired. COMPARISON: [facility], CR, XR CHEST 1VW (PORTABLE), 12/05/2016, 9:54. FINDINGS: Surgical changes and devices: 2-lead cardiac pacer is unchanged. Patient is status post median sterno mercedes and CABG. Lungs and pleura: Patchy pulmonary opacities are present at the posterior lateral left lung base. The se are new when compared with the study dated 12/05/16. No pleural effusion or pneumothorax. The lung volumes are large and the diaphragms are flattened suggesting emphysema. Mediastinum: Mediastinal contours are normal. Heart size is enlarged, as before. Bones and chest wall: No suspicious bony abnormalities. Soft tissues appear unremarkable. IMPRESSION: 1. Focal left basilar radiopacities suspicious for aspiration/infection or atelectasis, new when comp ared with yesterday's study. 2. Stable cardiomegaly. Dictated by: Ashleigh Good M.D. on 12/06/2016 at 11:37 Approved by: Ashleigh Good M.D. on 12/06/2016 at 11:38
[2016-12-06] MEDS: Potassium Chloride 20 mEq SR Tablet PO SCH (12:18)
[2016-12-06 14:13] VITALS: BP 176/75; PULSE 71; RESP 18; O2SAT 94
--- NOTE | 2016-12-06 14:56 | NUR ---
Social Work-attempted initial assessment: Data:EMR reviewed. Pt is a 86 y/o female who was admitted on 12/05/16 for DVT Per H&P. Pt's insurance is [facility] and PCP Is Natividad Rojas MD. EMR reviewed. Pt is on day 1 of hospitalization. SW attempted to speak with pt at bedside, pt confused. SW placed a call to master [phone] and left message to discuss discharge planning, SW awaiting a return call. PT is pending. SW will continue to follow. Assessment:Pt who is independent at baseline. Plan:SW has left message for master Arnett to discuss discharge planning, awaiting a return call. SW will continue to follow. ROZ Noble
--- NOTE | 2016-12-06 19:13 | NUR ---
Diarrhea / Impulsive Pt w/ two large incontinent foul smelling diarrhea episodes this shift Stool sample sent to r/o Cdiff and page to hospital to request order No new orders at this time, however, initiated precautions Beverly alarm on patient's bed. Pt impulsive to get up, however is slow due to discomfort and age. Pt reminded repeatedly to use call light Bed down and in locked position, call light w/in reach
--- NOTE | 2016-12-06 19:24 | PCM.PNMED ---
Subjective Date of Service Dec 06, 2016 Subjective Patient remains pleasantly confused and has no new complaints. She appears quite comfortable. Earlier today she was spotted walking with physical therapy in the hallway. However, the nursing staff states that she is very unsteady on her feet. Exam Vital Signs Vital Sign - Last Date Time Temp Pulse Resp B/P Pulse Ox O2 Delivery O2 Flow Rate FiO2 12/06/16 14:13 36.6 71 18 176/75 94 Room Air Intake and Output 12/05/16 12/05/16 12/06/16 Cumulative From/Thru 15:00 23:00 07:00 12/05/16 08:54 - 12/06/16 04:03 Intake Total 400 ml 400 ml Output Total 425 ml 425 ml Balance -25 ml -25 ml Intake Oral 400 ml 400 ml Output Urine Total 425 ml 425 ml Exam General: Patient is lying supine in bed with her head elevated approximately 20- 30. She is in no apparent distress. HEENT: Head is atraumatic and normocephalic. Eyes: Pupils are equally round and reactive to light and accommodation. Extraocular muscles are intact. Sclera are white, anicteric. Subconjunctival mucosa is pink. Ears and nose are unremarkable. Oropharynx: There is no mucosal lesions, there is no thrush, there is no pharyngitis. Neck: Is supple, there are no nodes, or masses or tenderness. Chest: Is clear to auscultation and percussion. There are no rales, rhonchi, wheezes or rubs. Heart: Rate, rhythm is regular. There is grade 1 to 2/6 systolic murmur heard best at the left sternal border. There is no rub or gallop. Abdomen: Good bowel sounds are present. Abdomen is soft, nontender, no organomegaly or masses were appreciated. Extremities: Are symmetrical and well perfused. There is slight edema of the right lower extremity greater than the left, there is no cellulitis, no rash. However, there is some evidence of contusion and laceration from previous falls on her lower extremities. Neurologic: There are no focal neurological deficits. Cranial nerves II through XII are intact. There are no sensory or motor deficits. Patient is oriented to person otherwise remains pleasantly confused Psychiatric: Patients mood is calm and shows no sign of agitation. Genital: Deferred Rectal: Deferred Lab and Diagnostics Result Diagram: 12/06/16 0556 12/06/16 0556 X-Rays, CTs and MRIs PROCEDURE: US VENOUS LEG DUPLEX BILATERAL INDICATIONS: BLE swelling R>L TECHNIQUE: Real-time imaging, as well as color and pulse Doppler interrogation, were performed of the deep veins of both legs from the inguinal ligament to the popliteal fossa. COMPARISON: None. FINDINGS: The more superior right-sided deep veins are normally compressible, and free of intraluminal thrombus. Color and pulse Doppler demonstrate normal phasic intravascular flow. There is normal augmentation response to distal compression maneuver in these vessels. In contrast, within the distal superficial femoral vein there is nonocclusive clot and this extends into the popliteal vein where occlusive clot seen and posterior tibial vein occlusive clot also is within the catheter. No DVT is seen at the left lower extremity.. IMPRESSION: Left lower extremity free of thrombosis. Right lower extremity superiorly shows no thrombosis within the deep venous system but there is partially occlusive thrombus in the distal superficial femoral vein contiguously extending into the popliteal vein and occlusive thrombus is also seen in one of the 2 posterior tibial paired veins. Dictated by: Rodrigo Ricketts M.D. on 12/05/2016 at 10:58 Approved by: Rodrigo Ricketts M.D. on 12/05/2016 at 11:03 PROCEDURE: X-RAY CHEST ONE VIEW, PORTABLE ([id number]) INDICATIONS: probable chf TECHNIQUE: One view of the chest was acquired. COMPARISON: [facility], , CHEST 2VW, 11/09/2012, 3:56. [facility], , CHEST 1VW (PORTABLE), 02/10/2010, 19:52. FINDINGS: Surgical changes and devices: There is a cardiac pacemaker in expected position. Sternotomy and CABG. Lungs and pleura: Left basilar scars/atelectasis. No pleural effusions or pneumothorax. Mediastinum: Mediastinal contours appear normal. Heart size is normal. Bones and chest wall: No suspicious bony lesions. Overlying soft tissues appear unremarkable. IMPRESSION: No acute cardiopulmonary disease. Dictated by: David Evans M.D. on 12/05/2016 at 10:55 Approved by: David Evans M.D. on 12/05/2016 at 11:07 Cardiac Echo Impressions Echocardiogram Report Name: EDWIAN MEDINA LStudy Date: 12/05/2016 Height: 67 in Hospital Exam Location: [facility] Weight: 175 lb Gender: Female BSA: 1.9 m2 : 1930 Age: 86 yrs BP: 189/79 mmHg Reason For Study: CHF, NEW MURMUR History: CABG,PACEMAKER Ordering Physician: HOSPITALIST [facility] Performed By: Roshni Vann Referring Physician: Dr. Natividad Rojas Interpretation Summary Left ventricular wall thickness is mildly increased. Left ventricular systolic function is normal. The ejection fraction is estimated to be 60-65%. The right ventricle is normal in size and function. The right ventricular systolic pressure is estimated at 37 mmHg assuming a right atrial pressure of 3 mm Hg. Both atria are normal in size. There is mild mitral regurgitation. There is mild tricuspid regurgitation. There is no other significant valvular heart disease. The aortic arch is mildly enlarged. Assessment & Plan 86yoF with PMH remarkable for CAD with CABGx2 (reportedly in 2009) as well as a pacer placed in 2009 for sick sinus syndrome as well as PVD with numerous stents placed in her legs bilaterally who presents with failure to thrive from [facility]. 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 Her son in law came in with her today. He reports that she was seen by her PCP Dr. Rojas at [facility] 2 days ago after numerous falls and diagnosed with UTI and given Nitrofurantoin. The patient was not improving and was having increased leg swelling and was told to come to the hospital for evaluation. The patient denies dysuria, increased urinary frequency or urgency. She denies fever, chills or night sweats. She states that last week she had diarrhea. Urinary tract infection -Dr. Alicia's office records indicate that patient had a urinalysis which was indicative of a urinary tract infection. He reports that a urine culture was obtained and patient was placed on Macrobid 100 mg by mouth twice a day. -Recommend contacting Dr. Alicia's office on Thursday for final culture results. -We will continue Macrobid 100 mg by mouth twice a day -Gentle IV hydration -Chek final urine culture result from Dr. Alicia's office. DVT -There is partially occlusive thrombus in the distal superficial femoral vein contiguously extending into the popliteal vein and occlusive thrombus is also seen in one of the 2 posterior tibial paired veins -Coumadin started, dosing per pharmacy -Continue Lovenox bridging therapy Congestive heart failure and hypertension -There has been an increase in the pro BNP from 203.7-887.2 since yesterday with no IV fluids given. -We will begin core measures for congestive heart failure with adding carvedilol to lisinopril -We will add by mouth Lasix just for a few days while hospitalized and then discontinue prior to discharge. We will add potassium to counter effect any hypokalemic effects of Lasix may have. Recent diarrhea approximately a week ago. This apparently has resolved. -We will give gentle IV hydration -Recent increasing falls at home with ulcer on her right lower extremity, contusion of her right knee and laceration of her right lower extremity. -Suspect this could be due to weakness secondary to the urinary tract infection and recent diarrhea mentioned above. -We will consult physical therapy and occupational therapy. -Continue antibiotics and gentle IV hydration. Other ongoing problems: Hyperlipidemia consider statin use if patient agrees Hypertension continue lisinopril and diltiazem. CAD with CABG x2 vessel in January 2010 Extensive peripheral vascular disease, status post fem-fem grafting with multiple revisions Anxiety Atherosclerosis of [place] arteries of extremities with intermittent claudication, bilateral legs Memory loss Hx of [place] Sick sinus syndrome status post pacemaker placement Reports: Hyperlipidemia, Hypertension Disposition: Continue physical therapy to determine if patient can be safely returned home early next week. Dr. Jose Ross will follow in a.m. Pain Evaluation: Adequate Pain Control GI Prophylaxis: H2 sierra VTE Prophylaxis: Sub-Q Enoxaparin, Theraputic Anticoag with Warfarin Resuscitation Status: CPR: Attempt Resuscitation Boone Ozuna MD Dec 06, 2016 19:23
[2016-12-06 20:37] VITALS: BP 172/72; PULSE 66; RESP 20; O2SAT 96
[2016-12-07] MEDS: Sodium Chloride LOK Flush 10 mL Syringe IVFLUSH SCH ×4 (00:20→20:31)
--- NOTE | 2016-12-07 01:19 | NUR ---
behavior/agitation pt became agitated at start of shift. she continuously attempted to get out of bed without assistance. when nurse asked her to please stay in bed until she had help to get up she started crying and yelling at staff. she made multiple statements about having "nothing to live for" and "no one cared about her". nurse reminded pt about her family who cared about her. pt remained upset so nurse called pt's son in law Chapito who said that this behavior was not unusual for the pt at night time and that she was not used to being alone in the evening as they always visited her. Chapito had pts daughter Tere call the pt. the pt talked to her daughter calmly for about 30 minutes. at some point tho she got upset and threw her phone. nurse found the phone in pieces in the hallway. it appeared that a yomi alarm was not enough to keep the pt safe so she was given a sitter. pt did not want to stay in bed and felt like we were trapping her in bed so nurse and the sitter got the pt a recliner and helped her out of bed to the chair. since the sitter has arrived pt has been calm and cooperative with care. she prefers to lay in the recliner then the bed. will continue to monitor.
[2016-12-07 05:27] VITALS: BP 166/72; PULSE 68; RESP 16; O2SAT 95
[2016-12-07 07:53] LABS: BASOPHILS % (AUTO) 0.8 % (0-3); EOSINOPHILS % (AUTO) 4.1 % (0-5); MONOCYTES % (AUTO) 10.3 % (4-12); Mean Corpuscular Hemoglobin 29.9 pg (27.0-35.0); Mean Corpuscular Volume 95.2 fL (81-100); NEUTROPHILS % (AUTO) 58.1 % (40-74); Platelet Count 233 bil/L (150-400)
[2016-12-07 07:56] LABS: INR 1.02 ratio
--- NOTE | 2016-12-07 08:40 | PCM.PHAPRO ---
Progress Date of Service: Dec 07, 2016 ANTICOAGULATION MANAGEMENT BY PHARMACY -INDICATION: DVT -HOME DOSE: NEW START -CONCURRENT ANTICOAGULATION: ENOXAPARIN 80 MG BID -CRCL: 63.2 ML/MIN -COAG TRENDS: -Dec 06-Dec 07-Nov 0.98 1.00 1.02 ~ 0.02 0.02 2.5 4.0 5 MG -[id number] SCORE: 4 PLAN: SMALL RISE IN INR BUT STILL BELOW THERAPEUTIC. WILL GIVE A OT DOSE OF 5 MG TONIGHT AND CONTINUE TO WATCH INR TRENDS Pharmacy appreciates consult and will continue to monitor. THANKS! Polly Chappell PharmD Dec 07, 2016 08:40
--- NOTE | 2016-12-07 09:11 | NUR ---
Social Work: Initial Assessment (Late Entry from 12/06/16 [id number]) D: Per EMR review, pt is an 86 year old female. Pt is [facility] Medicare with no LTC insurance or VA Benefits. PCP is Natividad Rojas MD. NOK is Melquiades Brink, Son, . Advanced directives not completed- information provided to family by bedside RN, per care activity. Readmit score not available at this time. HEALTH EDUCATION DIRECTOR received return phone call from pt's son, Melquiades, to discuss discharge planning. Sw role and contact information provided. See initial assessment. Pt is a resident at [facility]. Pt has baseline dementia and uses a walker. Son states pt has been stable with ambulation but requires assistance with all of her ADLs including, dressing, bathing, medication management, cooking and cleaning. Family has hired a private pay caregiver that comes in 3x daily to assist the pt with these things. They have also have [facility] 4x week during the evenings for "social interaction and supervision." Family understands that the pt's dementia is advancing and that she will need a higher level of care. They have been touring several memory care facilities and adult family homes in anticipation for the pt's changing needs. They have not yet made a decision about where she will be going. HEALTH EDUCATION DIRECTOR reviewed PT recommendations for 24/7 care and support. Family is wondering if pt would qualify for a short SNF stay. HEALTH EDUCATION DIRECTOR informed them that pt's ambulation does not meet criteria at this point under Medicare guidelines and that they should plan for the pt to likely return home. A: Pt with dementia and who will require 24/7 care at time of discharge. P: Anticipate pt to discharge back to [facility]; HEALTH EDUCATION DIRECTOR to follow up with pt's family about plan for 24/7 caregiving and possible home health. ROZ Garcia Addendum: 12/07/16 at 0926 by PETRA M HALTERMA SS Amended: Links added.
[2016-12-07] MEDS: Potassium Chloride 20 mEq SR Tablet PO SCH (10:26)
[2016-12-07] MEDS: Nitrofurantoin Monohyd-Macrocryst 100 mg Capsule PO SCH ×2 (10:26→20:26)
[2016-12-07] MEDS: PARoxetine 20 mg Tablet PO SCH (10:27)
[2016-12-07] MEDS ORDERED: Potassium Chloride 20 mEq/15 mL 15mL Oral Soln PO ONE (13:55)
--- NOTE | 2016-12-07 14:17 | PCM.PNMED ---
Subjective Date of Service Dec 07, 2016 Subjective Follow-up follow extremity DVT, failure to thrive, diarrhea. Patient seen and examined at bedside, plan of care discussed with nursing staff. No significant overnight events are development. She continued to have diarrhea on and off. Stool for C. difficile is negative. Patient cannot be interviewed accurately even a dementia. She remained 1 and 1. She denies pain Exam Vital Signs Vital Sign - Last Date Time Temp Pulse Resp B/P Pulse Ox O2 Delivery O2 Flow Rate FiO2 12/07/16 05:27 36.7 68 16 166/72 95 Room Air Intake and Output 12/06/16 12/06/16 12/07/16 Cumulative From/Thru 14:59 22:59 06:59 12/05/16 08:54 - 12/07/16 05:27 Intake Total 100 ml 636 ml 100 ml 1236 ml Output Total 300 ml 1450 ml 675 ml 2850 ml Balance -200 ml -814 ml -575 ml -1614 ml Intake Oral 100 ml 636 ml 100 ml 1236 ml Output Urine Total 300 ml 1450 ml 325 ml 2500 ml Urine/Stool Mix 350 ml 350 ml # Voids 1 1 # Bowel Movements 2 2 4 Exam General:'s present, elderly female. And check comfortably when wished. Neck: Supple, no JVD, no carotid bruit, trachea midline Chest: Normal respiratory effort Long: Clear bilaterally, no crackle, no wheezing Heart s1-s2, no gallop Abdomen: Soft nontender, nondistended Extremity: No cyanosis Neurologically : Grossly nonfocal IVs and Medications Medications Reviewed: Medications were reviewed in detail Lab and Diagnostics Result Diagram: 12/07/1670312/07/16 0704 X-Rays, CTs and MRIs PROCEDURE: US VENOUS LEG DUPLEX BILATERAL INDICATIONS: BLE swelling R>L TECHNIQUE: Real-time imaging, as well as color and pulse Doppler interrogation, were performed of the deep veins of both legs from the inguinal ligament to the popliteal fossa. COMPARISON: None. FINDINGS: The more superior right-sided deep veins are normally compressible, and free of intraluminal thrombus. Color and pulse Doppler demonstrate normal phasic intravascular flow. There is normal augmentation response to distal compression maneuver in these vessels. In contrast, within the distal superficial femoral vein there is nonocclusive clot and this extends into the popliteal vein where occlusive clot seen and posterior tibial vein occlusive clot also is within the catheter. No DVT is seen at the left lower extremity.. IMPRESSION: Left lower extremity free of thrombosis. Right lower extremity superiorly shows no thrombosis within the deep venous system but there is partially occlusive thrombus in the distal superficial femoral vein contiguously extending into the popliteal vein and occlusive thrombus is also seen in one of the 2 posterior tibial paired veins. Dictated by: Rodrigo Ricketts M.D. on 12/05/2016 at 10:58 Approved by: Rodrigo Ricketts M.D. on 12/05/2016 at 11:03 PROCEDURE: X-RAY CHEST ONE VIEW, PORTABLE ([id number]) INDICATIONS: probable chf TECHNIQUE: One view of the chest was acquired. COMPARISON: [facility], , CHEST 2VW, 11/09/2012, 3:56. [facility], , CHEST 1VW (PORTABLE), 02/10/2010, 19:52. FINDINGS: Surgical changes and devices: There is a cardiac pacemaker in expected position. Sternotomy and CABG. Lungs and pleura: Left basilar scars/atelectasis. No pleural effusions or pneumothorax. Mediastinum: Mediastinal contours appear normal. Heart size is normal. Bones and chest wall: No suspicious bony lesions. Overlying soft tissues appear unremarkable. IMPRESSION: No acute cardiopulmonary disease. Dictated by: David Evans M.D. on 12/05/2016 at 10:55 Approved by: David Evans M.D. on 12/05/2016 at 11:07 Cardiac Echo Impressions Echocardiogram Report Name: EDWINA MEDINA LStudy Date: 12/05/2016 Height: 67 in Hospital Exam Location: [facility] Weight: 175 lb Gender: Female BSA: 1.9 m2 : 1930 Age: 86 yrs BP: 189/79 mmHg Reason For Study: CHF, NEW MURMUR History: CABG,PACEMAKER Ordering Physician: HOSPITALIST [facility] Performed By: Roshni Vann Referring Physician: Dr. Natividad Rojas Interpretation Summary Left ventricular wall thickness is mildly increased. Left ventricular systolic function is normal. The ejection fraction is estimated to be 60-65%. The right ventricle is normal in size and function. The right ventricular systolic pressure is estimated at 37 mmHg assuming a right atrial pressure of 3 mm Hg. Both atria are normal in size. There is mild mitral regurgitation. There is mild tricuspid regurgitation. There is no other significant valvular heart disease. The aortic arch is mildly enlarged. Assessment & Plan 86yoF with PMH remarkable for CAD with CABGx2 (reportedly in 2009) as well as a pacer placed in 2009 for sick sinus syndrome as well as PVD with numerous stents placed in her legs bilaterally who presents with failure to thrive from [facility]. 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 Her son in law came in with her today. He reports that she was seen by her PCP Dr. Rojas at [facility] 2 days ago after numerous falls and diagnosed with UTI and given Nitrofurantoin. The patient was not improving and was having increased leg swelling and was told to come to the hospital for evaluation. The patient denies dysuria, increased urinary frequency or urgency. She denies fever, chills or night sweats. She states that last week she had diarrhea. Urinary tract infection : Patient is a Macrobid 1 mg twice a day per culture and sensitivity result done as outpatient at Dr. Rojas office. DVT : Involving partially occlusive thrombus in the distal superficial femoral vein contiguously extending into the popliteal vein and occlusive thrombus is also seen in one of the 2 posterior tibial paired veins -On Coumadin therapy bridging with Lovenox. Patient was previously in Coumadin but that was discontinued as outpatient for unknown reason. - I would prefer her to be on TEA but profanity they will use to Coumadin and preferred abduction. Patient has a home health meticulously manage her medication as per psychiatric social worker supervisor. Pulmonary artery hypertension : Diagnosis with echocardiogram . Pressure is 37 Hypokalemia: Secondary to Lasix administration. Replace when necessary Recent diarrhea approximately a week ago : Stool for C. difficile 1 is negative. -Patient is reported to continue him diarrhea though. Rechecks for C. difficile diarrhea continued. -Monitor electrolyte is when necessary -Recent increasing falls at home with ulcer on her right lower extremity, contusion of her right knee and laceration of her right lower extremity. -Suspect this could be due to weakness secondary to the urinary tract infection and recent diarrhea mentioned above. Seen by physical therapy. No recommendation for acute rehabilitation at this time Chronic medical problems: Hyperlipidemia consider statin use if patient agrees Hypertension continue lisinopril and diltiazem. CAD with CABG x2 vessel in January 2010 Extensive peripheral vascular disease, status post fem-fem grafting with multiple revisions Anxiety Atherosclerosis of [place] arteries of extremities with intermittent claudication, bilateral legs Memory loss Hx of [place] Dementia Sick sinus syndrome status post pacemaker placement Reports: Hyperlipidemia, Hypertension Hemodynamically and clinically stable. Continue Coumadin per pharmacy is goal INR of 2-3 This potassium. BMP in a.m. monitor electrolytes. Discontinue Lasix. Discharge anticipated within 24-48 hours once arrangement is made GI Prophylaxis: H2 sierra VTE Prophylaxis: Sub-Q Enoxaparin, Theraputic Anticoag with Warfarin Resuscitation Status: CPR: Attempt Resuscitation Time spent 35 minutes Jose Ross MD Dec 07, 2016 14:17
[2016-12-07 14:35] VITALS: BP 201/78; PULSE 66; RESP 20; O2SAT 96
--- NOTE | 2016-12-07 14:38 | NUR ---
Late meds/Behavior/BP Pt sitting in chair w/ sitter in room. All meds crushed and pt took one small bite of the meds and then refused the rest, got agitated, started saying we don't now what we are talking about and she isn't taking anything. Called family, daughter sent in caregiver to help. With caregivers assistance and patients trust in her I gave all meds at approx 1215. BP at 1443 201/78. Hospitalist jyotid. Pt resting in bed. No new orders at this time Addendum: 12/07/16 at 1630 by NISH BRANNON RN Hydralazine administered and BP rechecked down to 161/70 Pt asymptomatic
[2016-12-07] MEDS ORDERED: hydrALAZINE 20 mg/mL Inj IV PRN (15:35)
[2016-12-07 16:31] VITALS: BP 161/70
[2016-12-07 20:20] VITALS: BP 151/62; PULSE 70; RESP 16; O2SAT 93
[2016-12-08 01:32] VITALS: BP 160/71
--- NOTE | 2016-12-08 03:58 | NUR ---
Mobility Continues to be impulsive, quick to exit bed, unstable when up. Sitter required for safety as pt is unable to understand her limitations. Generally cooperative with care tonight, took all medications but does not like physical assistance. Sitter in room at all times family is not present.
[2016-12-08 05:30] LABS: BASOPHILS % (AUTO) 0.7 % (0-3); EOSINOPHILS % (AUTO) 3.3 % (0-5); Mean Corpuscular Hemoglobin 30.4 pg (27.0-35.0); Mean Corpuscular Volume 95.9 fL (81-100); NEUTROPHILS % (AUTO) 60.4 % (40-74); Platelet Count 244 bil/L (150-400)
[2016-12-08 05:41] LABS: INR 1.16 ratio
[2016-12-08] MEDS: Sodium Chloride LOK Flush 10 mL Syringe IVFLUSH SCH ×3 (08:30→20:19)
--- NOTE | 2016-12-08 09:16 | NUR ---
[facility] Signed
[2016-12-08 09:23] VITALS: BP 190/77; PULSE 63; RESP 16; O2SAT 95
--- NOTE | 2016-12-08 11:54 | PCM.PHAPRO ---
Progress Warfarin Management by Pharmacy: -Indication: Dvt -Home Dose: none, new start -Concurrent Anticoagulation: Lovenox 80mg subq [id number] -COAG TRENDS: -Dec 06-Dec 07-Nov 0.98 1.00 1.02 ~ 0.02 0.02 2.5 4.0 5 MG -[id number] SCORE: 4 PLAN: Inr today remains subtherapeutic at 1.16. Day 4 of warfarin therapy this evening will be 5mg Alisha Jiménez [facility] Dec 08, 2016 11:54
[2016-12-08 12:14] VITALS: BP 202/102; PULSE 68; RESP 16; O2SAT 96
[2016-12-08] MEDS: Potassium Chloride 20 mEq SR Tablet PO SCH (12:19)
[2016-12-08] MEDS: PARoxetine 20 mg Tablet PO SCH (12:22)
[2016-12-08] MEDS: Nitrofurantoin Monohyd-Macrocryst 100 mg Capsule PO SCH ×2 (12:22→20:16)
--- NOTE | 2016-12-08 12:58 | NUR ---
Social Work-continued d/c planning: Data:EMR Reviewed. Pt is on day 3 of hospitalization for DVT per H&P. anticipates another day prior to discharge. PT has seen pt and recommended home with 24/7 supervision. Pt ambulating 250ft. CARLIN followed up with pt's son in law Melquiades today. Melquiades states that pt resides at [place] [facility] and has some caregiving. CARLIN explained recommendation of 24/7 care. Melquiades states he feels like he will be able to arrange this through the caregiving they already have in place. Melquiades to work on this and call SW back. CARLIN discussed longer term planning. Melquiades states that he and his have been exploring options ie assisted living and memory care. Melquiades states pt has private funds for a certain period of time, but then would run out and would have to switch to Medicaid. Melquiades aware that most facilities make you pay privately for two years prior to switching to Medicaid. Melquiades has also been looking into Adult Family Homes. CARLIN offered to provide resources, but Melquiades feels like they have everything they need. CARLIN provided Melquiades with phone number and requested a return call once caregiving is set up. CARLIN will continue to follow. Assessment:Pt to benefit from 24/7 supervision. Plan:Pt to likely discharge back to [place] with increased caregiving. Son in Law Melquiades working on getting 24/7 care for pt. Son in law and daughter working on longer term planning of assisted living or memory care. CARLIN will continue to follow. ROZ Noble Addendum: 12/08/16 at 1425 by MARISSA LANCASTER CARLIN also discussed the fact that states pt may need Lovenox at discharge. Son in law states that one of their caregivers in a RN and she would be able administer this for pt. SW will continue to follow. ROZ Noble
[2016-12-08 13:46] VITALS: BP 114/67; PULSE 74
--- NOTE | 2016-12-08 14:35 | PCM.PNMED ---
Subjective Date of Service Dec 08, 2016 Subjective Follow-up for UTI, altered mental status, lower extremity to DVT Patient seen and examined at bedside. She is confused and cannot be interviewed. Diarrhea improved. Stool for C. difficile negative. Patient off on back precaution. Exam Vital Signs Vital Sign - Last Date Time Temp Pulse Resp B/P Pulse Ox O2 Delivery O2 Flow Rate FiO2 12/08/16 13:46 74 114/67 12/08/16 12:14 36.4 16 96 Room Air Intake and Output 12/07/16 12/07/16 12/08/16 Cumulative From/Thru 15:00 23:00 07:00 12/05/16 08:54 - 12/08/16 06:05 Intake Total 290 ml 100 ml 1626 ml Output Total 401 ml 1 ml 3252 ml Balance -111 ml 99 ml -1626 ml Intake Oral 290 ml 100 ml 1626 ml Output Urine Total 400 ml 2900 ml Urine/Stool Mix 1 ml 1 ml 352 ml # Voids 1 # Bowel Movements 1 5 Exam General: Very pleasant elderly female. In bed comfortably Neck: Supple, no JVD, trachea midline Chest: Normal respiratory effort, no chest wall tenderness Long: Clear bilaterally, no crackle, no wheezing Heart s1-s2, no gallop, no murmur Abdomen: Soft nontender, nondistended. Bowel sounds normal all quadrant Extremity: No cyanosis, no edema Neurologically : Awake and alert, confused. No focal deficit IVs and Medications Medications Reviewed: Medications were reviewed in detail Lab and Diagnostics Result Diagram: 12/08/16 0500 12/08/16 0500 X-Rays, CTs and MRIs PROCEDURE: US VENOUS LEG DUPLEX BILATERAL INDICATIONS: BLE swelling R>L TECHNIQUE: Real-time imaging, as well as color and pulse Doppler interrogation, were performed of the deep veins of both legs from the inguinal ligament to the popliteal fossa. COMPARISON: None. FINDINGS: The more superior right-sided deep veins are normally compressible, and free of intraluminal thrombus. Color and pulse Doppler demonstrate normal phasic intravascular flow. There is normal augmentation response to distal compression maneuver in these vessels. In contrast, within the distal superficial femoral vein there is nonocclusive clot and this extends into the popliteal vein where occlusive clot seen and posterior tibial vein occlusive clot also is within the catheter. No DVT is seen at the left lower extremity.. IMPRESSION: Left lower extremity free of thrombosis. Right lower extremity superiorly shows no thrombosis within the deep venous system but there is partially occlusive thrombus in the distal superficial femoral vein contiguously extending into the popliteal vein and occlusive thrombus is also seen in one of the 2 posterior tibial paired veins. Dictated by: Rodrigo Ricketts M.D. on 12/05/2016 at 10:58 Approved by: Rodrigo Ricketts M.D. on 12/05/2016 at 11:03 PROCEDURE: X-RAY CHEST ONE VIEW, PORTABLE ([id number]) INDICATIONS: probable chf TECHNIQUE: One view of the chest was acquired. COMPARISON: [facility], CR, CHEST 2VW, 11/09/2012, 3:56. [facility], , CHEST 1VW (PORTABLE), 02/10/2010, 19:52. FINDINGS: Surgical changes and devices: There is a cardiac pacemaker in expected position. Sternotomy and CABG. Lungs and pleura: Left basilar scars/atelectasis. No pleural effusions or pneumothorax. Mediastinum: Mediastinal contours appear normal. Heart size is normal. Bones and chest wall: No suspicious bony lesions. Overlying soft tissues appear unremarkable. IMPRESSION: No acute cardiopulmonary disease. Dictated by: David Evans M.D. on 12/05/2016 at 10:55 Approved by: David Evans M.D. on 12/05/2016 at 11:07 Cardiac Echo Impressions Echocardiogram Report Name: EDWINA MEDINA LStudy Date: 12/05/2016 Height: 67 in Hospital Exam Location: [facility] Weight: 175 lb Gender: Female BSA: 1.9 m2 : 1930 Age: 86 yrs BP: 189/79 mmHg Reason For Study: CHF, NEW MURMUR History: CABG,PACEMAKER Ordering Physician: HOSPITALIST [facility] Performed By: Roshni Vann Referring Physician: Dr. Natividad Rojas Interpretation Summary Left ventricular wall thickness is mildly increased. Left ventricular systolic function is normal. The ejection fraction is estimated to be 60-65%. The right ventricle is normal in size and function. The right ventricular systolic pressure is estimated at 37 mmHg assuming a right atrial pressure of 3 mm Hg. Both atria are normal in size. There is mild mitral regurgitation. There is mild tricuspid regurgitation. There is no other significant valvular heart disease. The aortic arch is mildly enlarged. Assessment & Plan 86yoF with PMH remarkable for CAD with CABGx2 (reportedly in 2009) as well as a pacer placed in 2009 for sick sinus syndrome as well as PVD with numerous stents placed in her legs bilaterally who presents with failure to thrive from [facility]. 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 Her son in law came in with her today. He reports that she was seen by her PCP Dr. Rojas at [facility] 2 days ago after numerous falls and diagnosed with UTI and given Nitrofurantoin. The patient was not improving and was having increased leg swelling and was told to come to the hospital for evaluation. The patient denies dysuria, increased urinary frequency or urgency. She denies fever, chills or night sweats. She states that last week she had diarrhea. Urinary tract infection : Continue Macrobid 1 mg twice a day per culture and sensitivity result done as outpatient at Dr. Rojas office. Repeat urinalysis and urine culture DVT : Involving partially occlusive thrombus in the distal superficial femoral vein contiguously extending into the popliteal vein and occlusive thrombus is also seen in one of the 2 posterior tibial paired veins -On Coumadin therapy bridging with Lovenox. Patient was previously in Coumadin but that was discontinued as outpatient for unknown reason. - I would prefer her to be on TEA but profanity they will use to Coumadin and preferred abduction. Patient has a home health meticulously manage her medication as per social insurance analyst. Pulmonary artery hypertension : Diagnosis with echocardiogram . Pressure is 37 Hypokalemia: Secondary to Lasix administration. Replace when necessary Recent diarrhea approximately a week ago : Stool for C. difficile 2 is negative. Discontinue contact isolation and precautions -Recent increasing falls at home with ulcer on her right lower extremity, contusion of her right knee and laceration of her right lower extremity. -Suspect this could be due to weakness secondary to the urinary tract infection and recent diarrhea mentioned above. Seen by physical therapy. No recommendation for acute rehabilitation at this time Chronic medical problems: Hyperlipidemia consider statin use if patient agrees Hypertension continue lisinopril and diltiazem. CAD with CABG x2 vessel in January 2010 Extensive peripheral vascular disease, status post fem-fem grafting with multiple revisions Anxiety Atherosclerosis of [place] arteries of extremities with intermittent claudication, bilateral legs Memory loss Hx of AR Dementia Sick sinus syndrome status post pacemaker placement Reports: Hyperlipidemia, Hypertension Hemodynamically and clinically stable. Patient still in 1 and secondary to dementia, pulling IV line. Family member wants placement/24-hour care. director professional services on board Continue Coumadin per pharmacy is goal INR of 2-3. Discharge once arrangement is made GI Prophylaxis: H2 sierra VTE Prophylaxis: Sub-Q Enoxaparin, Theraputic Anticoag with Warfarin Resuscitation Status: CPR: Attempt Resuscitation Time spent 25 minutes Jose Ross MD Dec 08, 2016 14:35
[2016-12-08 14:43] VITALS: BP 92/57; PULSE 74; RESP 17; O2SAT 91
--- NOTE | 2016-12-08 16:37 | NUR ---
Mentation Pt continues to be confused as to situation and place, oriented to self only. She did recognize family when present at the bedside. She is impulsive and continues to have a sitter at the bedside. She was quite drowsy in the AM and slept late. Unable to give the patient AM medications until 1100 as she would not wake to take her medications before that time. Once she was awake she accepted PO medications in apple sauce without difficulty.
[2016-12-08 17:41] LABS: APPEARANCE,URINE CLEAR (CLEAR,HAZY); COLOR,URINE YELLOW (YELLOW); OCCULT BLOOD,URINE NEGATIVE (NEGATIVE); UROBILINOGEN,URINE NORMAL (NORMAL)
[2016-12-08 19:47] VITALS: BP 119/77; PULSE 74; RESP 20; O2SAT 96
--- NOTE | 2016-12-09 03:53 | NUR ---
Safety awareness Continues to be impulsive, quick to exit bed, unstable when up. Sitter required for safety as pt is unable to understand her limitations. Cooperative with all care tonight. Sitter in room at all times family is not present.
[2016-12-09 04:25] VITALS: BP 164/75; PULSE 63; RESP 18; O2SAT 94
[2016-12-09 05:31] LABS: BASOPHILS % (AUTO) 0.6 % (0-3); EOSINOPHILS % (AUTO) 3.8 % (0-5); MONOCYTES % (AUTO) 9.7 % (4-12); Mean Corpuscular Hemoglobin 30.5 pg (27.0-35.0); Mean Corpuscular Volume 96.5 fL (81-100); NEUTROPHILS % (AUTO) 58.1 % (40-74); Platelet Count 253 bil/L (150-400)
[2016-12-09 05:40] LABS: INR 1.79 ratio
--- NOTE | 2016-12-09 06:49 | PCM.PHAPRO ---
Progress Warfarin Management by Pharmacy: -Indication: Dvt -Home Dose: none, new start -Concurrent Anticoagulation: Lovenox 80mg subq [id number] -COAG TRENDS: -Dec 06-Dec 07-Nov 0.98 1.00 1.02 ~ 0.02 0.02 2.5 4.0 5 MG -[id number] SCORE: 4 PLAN: Inr increased significantly to 1.79 today after receiving warfarin 5mg for the previous 2 doses. Will order 2mg dose this evening and follow Alisha Jiménez [facility] Dec 09, 2016 06:48
[2016-12-09] MEDS: Sodium Chloride LOK Flush 10 mL Syringe IVFLUSH SCH (08:30)
--- NOTE | 2016-12-09 08:55 | NUR ---
Social Work-continued d/c planning: Data:EMR Reviewed. Pt is on day 4 of hospitalization for DVT per H&P. SW followed up with son in law Melquiades this morning to discuss caregiving. SW left message on son in 's answering machine requesting a return call to discuss pt. SW will continue to follow. Assessment:Pt who will need 24/7 caregiver. Plan:Pt to likely discharge back to [place] with 24/7 care. Son in working on setting this up, message has been left to discuss further. SW will continue to follow. ROZ Noble
[2016-12-09] MEDS: Potassium Chloride 20 mEq SR Tablet PO SCH (09:15)
[2016-12-09] MEDS: Nitrofurantoin Monohyd-Macrocryst 100 mg Capsule PO SCH (09:17)
[2016-12-09] MEDS: PARoxetine 20 mg Tablet PO SCH (09:17)
--- NOTE | 2016-12-09 10:17 | PCM.DIMED ---
Discharge Instructions Date of Service Dec 09, 2016 Dates of Hospitalization Dec 05, 2016 at 12:44 Discharge Diagnosis Discharge Diagnosis 1. Acute encephalopathy 2. LE DVT . Hypertension. 4. UTI. 5 H/o CAD. 5 PHA. 7. Extensive peripheral vascular disease status post fem-fem grafting. 8. Anxiety 9. Dementia 10. Sick sinus syndrome status post pacemaker placement. 11. Hyperlipidemia Diet Low fat, Low Sodium, Heart Healthy (Avoid green vegetable ) Activity No restrictions Call your provider Shortness of breath, Bleeding, Chest pain Patient Instructions Lovenox subcutaneously for 3 day and check INR with Primary care doctor in 2 days to adjust Coumadin dose Follow-up with PCP in: 1 week (Primary Care doctor ) Jose Ross MD Dec 09, 2016 10:17
[2016-12-09] MEDS ORDERED: FUR20 PO (10:22)
[2016-12-09] MEDS ORDERED: CARV3.122 PO (10:22)
[2016-12-09] MEDS ORDERED: LOV80 SUBQ (10:22)
[2016-12-09] MEDS ORDERED: WARF2TAB PO (10:22)
--- NOTE | 2016-12-09 10:42 | NUR ---
Social Work-readiness for discharge: Data:EMR reviewed. Pt is on day 4 of hospitalization for DVT per H&P. Pt may be medically stable later today or tomorrow. CARLIN received a call back from son in law Melquiades regarding pt. Melquiades states that he has arranged caregiving for pt has everything covered expect a couple hours in the morning,which he will be setting up today with [facility]. Melquiades confirms that 24/7 care will be covered for pt at home. PT has cleared pt for home ambulating 250ft, pt just requiring 24/7 supervision. SW again explained pt's insurance will not cover SNF due to this being [facility] care,Melquiades states an understanding. Melquiades and are already planning and working on correction care planning of moving pt into memory or Assisted living care, declining resources. SW discussed services, HH choice list provided. Son in law would like referral to [facility] . Son in law states that he feels like his daughter in law would be able to assist with Lovenox injections when [facility] is not able to do these. Referral made to [facility] for RN,PT, and OT, access given. SW will continue to follow. Assessment:PT who would benefit from 24/7 supervision. Plan:Pt to discharge back to [place] with 24/7 caregiving set up. Referral made to [facility] for RN,PT, and OT, access given. SW will continue to follow. ROZ Noble
--- NOTE | 2016-12-09 11:06 | NUR ---
Social Work-discharge: Data:EMR reviewed. Pt is on day 4 of hospitalization for DVT per H&P. Pt is ready to discharge today. PT has cleared pt for home with 24/7 supervision, pt ambulating 250 ft, pt does not qualify for SNF. CARLIN spoke with son Melquiades and he has set up 24/7 caregiving for pt back to [place]. Son in law and daughter working on longer term planning, Ie memory or assisted living care. CARLIN explained [facility] will be able to assist with Lovenox injections, but they will need to do these every other day. Son in law Melquiades states that his daughter in law will be able to assist with this at home. Son in law aware that he will need to pickle cutter medications today. CARLIN informed Daron Thomas [phone] of [facility] of discharge and provided him with F2f and orders for RN,PT, and OT. Pt's son in law to pick pt up at 1500. CARLIN updated RN. All updated and agreeable to plan. Assessment:Pt who would benefit from 24/7 care and HH. Plan:Pt to discharge back to [place] today via POV. Son in law and family have arranged 24/7 care for pt. F2F and orders given to [facility] [phone] for RN,PT, and OT. Pt's granddaughter in law and [facility] to assist with Lovenox injections. 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 All updated and agreeable to plan. ROZ Noble
--- NOTE | 2016-12-09 13:05 | PCM.DC.MED ---
Discharge Summary Date of Service Dec 09, 2016 Dates of Hospitalization Date of Hospital Admission Dec 05, 2016 at 12:44 Date of Discharge: Dec 09, 2016 Providers: Admitting Physician: Boone Ozuna MD Primary Care Physician: Natividad Rojas MD Attending Physician: Boone Ozuna MD Diagnosis at Time of Discharge Diagnosis at Time of Discharge 1. Acute encephalopathy 2. LE DVT . Hypertension. 4. UTI. 5 H/o CAD. 5 PHA. 7. Extensive peripheral vascular disease status post fem-fem grafting. 8. Anxiety 9. Dementia 10. Sick sinus syndrome status post pacemaker placement. 11. Hyperlipidemia Consultations Physical therapy, outreach and education social worker Procedures XRay, CTs & MRIs PROCEDURE: US VENOUS LEG DUPLEX BILATERAL INDICATIONS: BLE swelling R>L TECHNIQUE: Real-time imaging, as well as color and pulse Doppler interrogation, were performed of the deep veins of both legs from the inguinal ligament to the popliteal fossa. COMPARISON: None. FINDINGS: The more superior right-sided deep veins are normally compressible, and free of intraluminal thrombus. Color and pulse Doppler demonstrate normal phasic intravascular flow. There is normal augmentation response to distal compression maneuver in these vessels. In contrast, within the distal superficial femoral vein there is nonocclusive clot and this extends into the popliteal vein where occlusive clot seen and posterior tibial vein occlusive clot also is within the catheter. No DVT is seen at the left lower extremity.. IMPRESSION: Left lower extremity free of thrombosis. Right lower extremity superiorly shows no thrombosis within the deep venous system but there is partially occlusive thrombus in the distal superficial femoral vein contiguously extending into the popliteal vein and occlusive thrombus is also seen in one of the 2 posterior tibial paired veins. Dictated by: Rodrigo Ricketts M.D. on 12/05/2016 at 10:58 Approved by: Rodriog Ricketts M.D. on 12/05/2016 at 11:03 PROCEDURE: X-RAY CHEST ONE VIEW, PORTABLE ([id number]) INDICATIONS: probable chf TECHNIQUE: One view of the chest was acquired. COMPARISON: [facility], , CHEST 2VW, 11/09/2012, 3:56. [facility], , CHEST 1VW (PORTABLE), 02/10/2010, 19:52. FINDINGS: Surgical changes and devices: There is a cardiac pacemaker in expected position. Sternotomy and CABG. Lungs and pleura: Left basilar scars/atelectasis. No pleural effusions or pneumothorax. Mediastinum: Mediastinal contours appear normal. Heart size is normal. Bones and chest wall: No suspicious bony lesions. Overlying soft tissues appear unremarkable. IMPRESSION: No acute cardiopulmonary disease. Dictated by: David Evans M.D. on 12/05/2016 at 10:55 Approved by: David Evans M.D. on 12/05/2016 at 11:07 Cardiac Echo Impression Echocardiogram Report Name: EDWINA MEDINA LStudy Date: 12/05/2016 Height: 67 in Hospital Exam Location: [facility] Weight: 175 lb Gender: Female BSA: 1.9 m2 : 1930 Age: 86 yrs BP: 189/79 mmHg Reason For Study: CHF, [place] History: CABG,PACEMAKER Ordering Physician: HOSPITALIST [facility] Performed By: Roshni Vann Referring Physician: Dr. Natividad Rojas Interpretation Summary Left ventricular wall thickness is mildly increased. Left ventricular systolic function is normal. The ejection fraction is estimated to be 60-65%. The right ventricle is normal in size and function. The right ventricular systolic pressure is estimated at 37 mmHg assuming a right atrial pressure of 3 mm Hg. Both atria are normal in size. There is mild mitral regurgitation. There is mild tricuspid regurgitation. There is no other significant valvular heart disease. The aortic arch is mildly enlarged. Brief History 86yoF with PMH remarkable for CAD with CABGx2 (reportedly in 2009) as well as a pacer placed in 2009 for sick sinus syndrome as well as PVD with numerous stents placed in her legs bilaterally who presents with failure to thrive from [facility] living. 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 Her son in law came in with her today. He reports that she was seen by her PCP Dr. Rojas at [facility] 2 days ago after numerous falls and diagnosed with UTI and given Nitrofurantoin. The patient was not improving and was having increased leg swelling and was told to come to the hospital for evaluation. The patient denies dysuria, increased urinary frequency or urgency. She denies fever, chills or night sweats. She states that last week she had diarrhea. Urinary tract infection -Dr. Alicia's office records indicate that patient had a urinalysis which was indicative of urinary tract infection. He reports that a urine culture was obtained and patient was placed on Macrobid 100 mg by mouth twice a day. -We will continue Macrobid 100 mg by mouth twice a day -Gentle IV hydration -Chek final urine culture result. -Recent diarrhea approximately a week ago. This apparently has resolved. -We will give gentle IV hydration -Recent increasing falls at home with ulcer on her right lower extremity, contusion of her right knee and laceration of her right lower extremity. -Suspect this could be due to weakness secondary to the urinary tract infection and recent diarrhea mentioned above. -We will consult physical therapy and occupational therapy. -Continue antibiotics and gentle IV hydration. Hospital Course 86yoF with PMH remarkable for CAD with CABGx2 (reportedly in 2009) as well as a pacer placed in 2009 for sick sinus syndrome as well as PVD with numerous stents placed in her legs bilaterally who presents with failure to thrive from [facility]. 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 Her son in law came in with her today. He reports that she was seen by her PCP Dr. Rojas at [facility] 2 days ago after numerous falls and diagnosed with UTI and given Nitrofurantoin. The patient was not improving and was having increased leg swelling and was told to come to the hospital for evaluation. The patient denies dysuria, increased urinary frequency or urgency. She denies fever, chills or night sweats. She states that last week she had diarrhea. Urinary tract infection : Continue Macrobid 1 mg twice a day per culture and sensitivity result done as outpatient at Dr. Rojas office. Repeat urinalysis and urine culture DVT : Involving partially occlusive thrombus in the distal superficial femoral vein contiguously extending into the popliteal vein and occlusive thrombus is also seen in one of the 2 posterior tibial paired veins -On Coumadin therapy bridging with Lovenox. Patient was previously in Coumadin but that was discontinued as outpatient for unknown reason. - I would prefer her to be on TEA but profanity they will use to Coumadin and preferred abduction. Patient has a home health and they will help her Coumadin. Patient is being discharged home on Lovenox bridging to Coumadin. INR is 1.7 on discharge. She will have INR in 2 days with primary care doctor for Coumadin dose adjustment Pulmonary artery hypertension : Diagnosis with echocardiogram . Pressure is 37 Hypokalemia: Secondary to Lasix administration. Replace when necessary Recent diarrhea approximately a week ago : Stool for C. difficile 2 is negative. Discontinue contact isolation and precautions -Recent increasing falls at home with ulcer on her right lower extremity, contusion of her right knee and laceration of her right lower extremity. -Suspect this could be due to weakness secondary to the urinary tract infection and recent diarrhea mentioned above. Seen by physical therapy. No recommendation for acute rehabilitation at this time Chronic medical problems: Hyperlipidemia consider statin use if patient agrees Hypertension continue lisinopril and diltiazem. CAD with CABG x2 vessel in January 2010 Extensive peripheral vascular disease, status post fem-fem grafting with multiple revisions Anxiety Atherosclerosis of [place] arteries of extremities with intermittent claudication, bilateral legs Memory loss Hx of [place] Dementia Sick sinus syndrome status post pacemaker placement Reports: Hyperlipidemia, Hypertension Hemodynamically and clinically stable. She is being discharged today in stable condition. She will follow-up as outpatient with primary care doctor for Coumadin dose adjustment and 2 days Exam Vital Signs (Last) Date Time Temp Pulse Resp B/P Pulse Ox O2 Delivery O2 Flow Rate FiO2 12/09/16 04:25 36.4 63 18 164/75 94 Room Air Exam General:'s present, elderly female. Sitting in chair comfortably Neck: Supple, no JVD, no carotid bruit, trachea midline Chest: Normal respiratory effort, no chest wall tenderness Lung: Clear bilaterally, no crackle, no wheezing Heart s1-s2, no gallop Abdomen: Soft non tender, non distended Extremity: No cyanosis, Neurologically : Grossly non focal Test 12/05/16 09:40 12/05/16 09:47 12/06/16 05:56 12/08/16 17:00 Procalcitonin 0.06ng/mL (0.00-0.08) Hold Martinez Top Tube Received (Received) Urine Culture Reflexed Not indicated Hemoglobin A1c 6.1% (4.8-5.6) Magnesium Level 2.0mg/dL (1.6-2.6) Pro-B-Type Natriuretic Peptide 887.2pg/mL (0-738) Triglycerides Level 191mg/dL (0-149) Cholesterol Level 223mg/dL (100-199) LDL Cholesterol, Calculated 140.800mg/dL (0-99) VLDL Cholesterol 38.200mg/dL HDL Cholesterol 44mg/dL (>39) Cholesterol/HDL Ratio 5.07 (0.0-4.4) Urine Color Yellow (YELLOW) Urine Appearance Clear (CLEAR,HAZY) Urine pH 6.0 (5.0-8.0) Urine Specific [place] 1.025 (1.003-1.035) Urine Protein Negativemg/dL (NEG,TRACE) Urine Glucose (UA) Negativemg/dL (NEGATIVE) Urine Ketones Negativemg/dL (NEGATIVE) Urine Occult Blood Negative (NEGATIVE) Urine Nitrite Negative (NEGATIVE) Urine Bilirubin Negative (NEGATIVE) Urine Urobilinogen Normalmg/dL (NORMAL) Urine Leukocyte Esterase Negative (NEGATIVE) Urine RBC 0-2/hpf (0-2) Urine WBC 0-5/hpf (0-5) Urine Epithelial Cells Moderate/hpf (NONE-MOD) Urine Crystals None seen (NONE SEEN) Urine Bacteria None/hpf (NONE-FEW) Urine Hyaline Casts Occasional/lpf (NONE) Urine Granular Casts None seen (NONE SEEN) Urine Waxy Casts None seen (NONE SEEN) Urine Red Blood Cell Casts None seen (NONE SEEN) Urine White Blood Cell Casts None seen (NONE SEEN) Urine Mucus None seen (None Seen) Urine Trichomonas None seen (NONE SEEN) Urine Yeast None (NONE SEEN) Urinalysis Comment None Test 12/09/16 05:00 White Blood Count 7.1th/mm3 (3.8-10.1) Red Blood Count 4.00mil/mm3 (3.90-5.20) Hemoglobin 12.2g/dL (12.0-15.6) Hematocrit 38.6% (35.0-46.0) Mean Corpuscular Volume 96.5fL (81-100) Mean Corpuscular Hemoglobin 30.5pg (27.0-35.0) Mean Corpuscular Hemoglobin Concent 31.6% (32.0-37.0) Red Cell Distribution Width 16.1% (12.3-15.4) Platelet Count 253bil/L (150-400) Neutrophils (%) (Auto) 58.1% (40-74) Lymphocytes (%) (Auto) 27.4% (14-46) Monocytes (%) (Auto) 9.7% (4-12) Eosinophils (%) (Auto) 3.8% (0-5) Basophils (%) (Auto) 0.6% (0-3) Prothrombin Time 19.4sec (8.1-12.5) Prothromb Time International Ratio 1.79ratio Sodium Level 142mEq/L (134-144) Potassium Level 4.1mEq/L (3.5-5.2) Chloride Level 106mEq/L (97-108) Carbon Dioxide Level 24mmol/L (18-29) Blood Urea Nitrogen 16mg/dL (8-27) Creatinine 0.85mg/dL (0.57-1.00) Estimat Glomerular Filtration Rate 91mL/min (>59) Glucose Level 99mg/dL (60-99) Calcium Level 8.9mg/dL (8.5-10.1) Total Bilirubin 0.4mg/dL (0.0-1.2) Aspartate Amino Transf (AST/SGOT) 42U/L (0-50) Alanine Aminotransferase (ALT/SGPT) 32U/L (0-32) Alkaline Phosphatase 97U/L (25-165) Total Protein 6.0g/dL (6.4-8.4) Albumin 3.5g/dL (3.4-5.0) Discharge Medications Discharge Medications Aspirin Chew (Aspirin Chew) 81 Mg Chew 81 MG PO QAM (Reported) Carvedilol (Carvedilol) 3.125 Mg Tablet 3.125 MG PO BID Prescribed by: ARABELLA ROSS MD Enoxaparin (Lovenox) 80 Mg/0.8 Ml Syringe 80 MG SUBQ Q12 Prescribed by: ARABELLA ROSS MD Furosemide (Furosemide) 20 Mg Tab 20 MG PO DAILY Prescribed by: ARABELLA ROSS MD Lisinopril (Lisinopril) 5 Mg Tablet 5 MG PO QAM (Reported) Paroxetine (Paroxetine) 20 Mg Tablet 20 MG PO QAM (Reported) Warfarin Sodium (Coumadin) 2 Mg Tablet 2 MG PO DAILY Prescribed by: ARABELLA ROSS MD Followup Plan Discharge Diet: Low fat, Low Sodium, Heart Healthy (Avoid green vegetable ) Discharge Activity: No restrictions Patient Instructions Lovenox subcutaneously for 3 day and check INR with Primary care doctor in 2 days to adjust Coumadin dose Follow-up with PCP in: 1 week (Primary Care doctor ) Arabella Ross MD Dec 09, 2016 13:05
--- NOTE | 2016-12-09 13:36 | NUR ---
Evaluation completed. Please go to "Notes" then click on "Assessments and Notes" (bottom left corner of screen). Then select appropriate discipline tab on top of screen.
--- NOTE | 2016-12-09 16:12 | NUR ---
Mentation, Discharge The patient's mental status continued to fluctuate some this shift, with patient largely appropriate in the morning but somewhat confused in the afternoon. Patient able to orient to self and place. Orders for discharge were received. The patient was made aware of the plan to discharge and was agreeable to go. The patient was given information regarding her diagnosis and treatment, signs and symptoms to be aware of, follow up information, her scripts and information regarding her new medications. The patient and family signified understanding of this information and her asymptomatic IV was removed intact. The patient was then dressed in her own clothing and her belongings were gathered. The patient then ambulated into a wheelchair and was wheeled to the main entrance where she ambulated into a private vehicle. At the time of discharge the patient was oriented to place and self and without complaint of pain, nausea or other difficulty. Patient discharged to the vehicle of son.
== END 2016-12-09 15:20 | disposition home health service (06) | DRG 300 ==
LOC: SED 08:45 → EDBD 08:45 → OSC 12:44
PROVIDERS: ADMIT Internal Medicine Infectious Disease; ATTEND Internal Medicine Infectious Disease
DX: I82.812 Embolism and thrombosis of superficial veins of left lower extremity (principal); N39.0 Urinary tract infection, site not specified; I25.10 Atherosclerotic heart disease of native coronary artery without angina pectoris; I10 Essential (primary) hypertension; E78.5 Hyperlipidemia, unspecified; R29.6 Repeated falls; R62.7 Adult failure to thrive; S80.01XA Contusion of right knee, initial encounter; W19.XXXA Unspecified fall, initial encounter; I70.213 Atherosclerosis of native arteries of extremities with intermittent claudication, bilateral legs; E87.6 Hypokalemia; F03.90 Unspecified dementia, unspecified severity, without behavioral disturbance, psychotic disturbance, mood disturbance, and anxiety; Z95.0 Presence of cardiac pacemaker; Y92.009 Unspecified place in unspecified non-institutional (private) residence as the place of occurrence of the external cause; I25.2 Old myocardial infarction; Z98.61 Coronary angioplasty status; Z95.1 Presence of aortocoronary bypass graft; Z79.01 Long term (current) use of anticoagulants; Z79.82 Long term (current) use of aspirin; Z95.828 Presence of other vascular implants and grafts

== ENCOUNTER 2017-01-30 18:19 | Inpatient (IN) | payer MEDICARE ==
[~2017-01-30] VITALS: Ht 167.6 cm; Wt 72.0 kg
[~2017-01-30 18:19] MED LIST changes: +CARV3.122 PO; +FUR20 PO; +LOV80 SUBQ; -PARO10TA2 PO; +PARO20TA5 PO; +WARF2TAB PO
[2017-01-30 18:31] VITALS: BP 179/97; PULSE 116; RESP 16; O2SAT 92
[2017-01-30] MEDS ORDERED: 0.9% Sodium Chloride 250 ML IV ONE (19:12)
--- NOTE | 2017-01-30 19:12 | ED.REPORT ---
HPI-NVD Date of Service Jan 30, 2017 ED Provider: Doc,Ed MD Patient is an 86 year old female with a history of dementia, [place], CHF, hypertension, CAD with CABGx2, and DVT presents to the ED accompanied by her son in law due to two weeks of dry cough. Associated symptom of three days of diarrhea, mostly in the mornings. She reports that the diarrhea happens once a day and is very loose. Son in law reports global weakness today, with difficulty transferring. The patient denies fever, chills, shortness of breath or chest pain. She is currently taking Coumadin and a Z-pack. Nursing Notes Stated Complaint: COUGH,WEAK,SHAKING,DEHYDRATED Chief Complaint: General Complaint Nursing Notes Reviewed: Yes Allergies: Coded Allergies: diltiazem (Verified Allergy, Severe, 11/09/12) lorazepam (Verified Allergy, Intermediate, 11/07/16) pantoprazole (Verified Allergy, Intermediate, 11/07/16) Scheduled Azithromycin (Zithromax (Z-Dwight)) 250 Mg Tablet 250 MG PO DAILY Take two tablets by mouth on day 1, then take one tablet daily on days 2 through 5. Carvedilol (Carvedilol) 3.125 Mg Tablet 3.125 MG PO BID Furosemide (Furosemide) 20 Mg Tab 20 MG PO QAM Lisinopril (Lisinopril) 5 Mg Tablet 5 MG PO QAM Melatonin (Melatonin) 5 Mg Tablet 5 MG PO HS Nitrofurantoin Monohyd/M-Cryst (MacroBid) 100 Mg Capsule 100 MG PO BID Paroxetine (Paroxetine) 20 Mg Tablet 20 MG PO QAM Warfarin Sodium (Warfarin Sodium) 5 Mg Tablet 2.5 MG PO S, M, , , Thu 5 MG TUES/SAT, 2.5 MG ALL OTHER DAYS Warfarin Sodium (Warfarin Sodium) 5 Mg Tablet 5 MG PO Tue, Sat 5 MG TUES/SAT, 2.5 MG ALL OTHER DAYS Scheduled PRN Benzonatate (Benzonatate) 100 Mg Capsule 100-200 MG PO Q8hr PRN PRN For Cough General Time Seen by MD: 19:11 Chief Complaint Diarrhea, Other (Cough) Hx Obtained From: Patient, Son Arrived By: Walk-in Onset Occurred: More than a week ago... (2 weeks) Symptom Duration: Since onset Diarrhea: Diarrhea 1-3 episodes Associated with: Denies: Abdominal pain, Fever Recent Healthcare: Recent doctor visit, Recent hospitalization Past Medical History Past Medical History Hyperlipidemia Hypertension CAD with CABG x2 Extensive peripheral vascular disease, status post fem-fem grafting with multiple revisions Anxiety Atherosclerosis of [place] arteries of extremities with intermittent claudication, bilateral legs Memory loss Hx of [place] Sick sinus syndrome Reports: Hyperlipidemia, Hypertension Past Surgical History Pacemaker placement stents for PVD Reports: CABG Smoking History Never Smoker Social History Lives in assisted living facility Alcohol Use: Denies alcohol use Drug Use: Denies drug use Other Social History: Good social support Ambulatory Status Independent Review of Systems Constitutional: Denies: Chills, Fever GI: Reports: Diarrhea, Denies: Abdominal pain, Vomiting Complete sys rev & neg: except as marked. Respiratory: Reports: Non-productive cough, Denies: Shortness of breath Cardiovascular: Denies: Chest pain Physical Exam Initial Vital Signs Vital Signs (First) Date Time Temp Pulse Resp B/P Pulse Ox O2 Delivery O2 Flow Rate FiO2 01/30/17 18:31 36.4 116 16 179/97 92 Room Air Initial VS: Reviewed General/Constitutional: Awake, Alert, No acute distress Abdomen: Atraumatic, Soft, Non-tender ENT: Atraumatic, Airway patent tacky mucus membranes Respiratory / Chest: Atraumatic, Breath sounds = bilat, No respiratory distress focal rhonchi LLL Cardiovascular: Regular rhythm, Heart sounds NL Heart Rate / Rhythm: Positive: Tachycardia Back: Atraumatic, Full range of motion Skin: Atraumatic, Color NL, No rash, Warm, Dry Neurologic: Oriented X3, Speech NL, No motor deficits, No sensory deficits Head / Eyes: Atraumatic, Normocephalic, PERRL, EOMI Neck: Atraumatic, Supple, Full range of motion Upper Extremity / MS: Atraumatic, Full range of motion Lower Extremity / Pelvis / MS: Atraumatic, Full range of motion Psychiatric: Affect NL, Mood NL Interpretation & Diagnostics Lab Results Interpretation Result Diagram: 01/30/17193401/30/171934 Test 01/30/17 19:35 01/30/17 20:04 White Blood Count 11.8th/mm3 (3.8-10.1) Red Blood Count 3.90mil/mm3 (3.90-5.20) Hemoglobin 11.9g/dL (12.0-15.6) Hematocrit 37.8% (35.0-46.0) Mean Corpuscular Volume 96.9fL (81-100) Mean Corpuscular Hemoglobin 30.5pg (27.0-35.0) Mean Corpuscular Hemoglobin Concent 31.5% (32.0-37.0) Red Cell Distribution Width 15.8% (12.3-15.4) Platelet Count 308bil/L (150-400) Neutrophils (%) (Auto) 83.9% (40-74) Lymphocytes (%) (Auto) 6.0% (14-46) Monocytes (%) (Auto) 9.2% (4-12) Eosinophils (%) (Auto) 0.3% (0-5) Basophils (%) (Auto) 0.3% (0-3) Prothrombin Time 33.5sec (8.1-12.5) Prothromb Time International Ratio 3.06ratio Sodium Level 140mEq/L (134-144) Potassium Level 3.6mEq/L (3.5-5.2) Chloride Level 101mEq/L (97-108) Carbon Dioxide Level 19mmol/L (18-29) Blood Urea Nitrogen 15mg/dL (8-27) Creatinine 0.86mg/dL (0.57-1.00) Estimat Glomerular Filtration Rate 89mL/min (>59) Glucose Level 161mg/dL (60-99) Lactic Acid Level 1.3mmol/L (0.4-2.0) Calcium Level 9.7mg/dL (8.5-10.1) Magnesium Level 1.6mg/dL (1.6-2.6) Total Bilirubin 0.8mg/dL (0.0-1.2) Aspartate Amino Transf (AST/SGOT) 20U/L (0-50) Alanine Aminotransferase (ALT/SGPT) 19U/L (0-32) Alkaline Phosphatase 113U/L (25-165) Troponin T < 0.010ug/L (0.0-0.011) Pro-B-Type Natriuretic Peptide 1401pg/mL (0-738) Total Protein 8.4g/dL (6.4-8.4) Albumin 4.0g/dL (3.4-5.0) Lipase 23U/L (13-60) Procalcitonin 0.16ng/mL (0.00-0.08) Urine Color Dark yellow (YELLOW) Urine Appearance Hazy (CLEAR,HAZY) Urine pH 5.5 (5.0-8.0) Urine Specific [place] 1.025 (1.003-1.035) Urine Protein 100mg/dL (NEG,TRACE) Urine Glucose (UA) Negativemg/dL (NEGATIVE) Urine Ketones 15mg/dL (NEGATIVE) Urine Occult Blood Moderate (NEGATIVE) Urine Nitrite Negative (NEGATIVE) Urine Bilirubin Negative (NEGATIVE) Urine Urobilinogen Normalmg/dL (NORMAL) Urine Leukocyte Esterase Trace (NEGATIVE) Urine RBC 3-10/hpf (0-2) Urine WBC 6-10/hpf (0-5) Urine Epithelial Cells Few/hpf (NONE-MOD) Urine Crystals None seen (NONE SEEN) Urine Bacteria Moderate/hpf (NONE-FEW) Urine Hyaline Casts None/lpf (NONE) Urine Granular Casts None seen (NONE SEEN) Urine Waxy Casts None seen (NONE SEEN) Urine Red Blood Cell Casts None seen (NONE SEEN) Urine White Blood Cell Casts None seen (NONE SEEN) Urine Mucus Present (None Seen) Urine Trichomonas None seen (NONE SEEN) Urine Yeast None (NONE SEEN) Urine Culture Reflexed Indicated ECG Interpretation ECG Interpretation: Sinus tachycardia rate [address] elevations PVC's T wave inversion in aVR and V1 Time: 19:25 Interpreted by: ED physician X-Ray Chest Interpretation Chest Xray Interpretation: IMPRESSION: Mildly increased patchy opacities in the left midlung, suggestive of early pneumonia/aspiration. Please correlate clinically Dictated by: Les Bowen M.D. on 01/30/2017 at 20:28 Approved by: Les Bowen M.D. on 01/30/2017 at 20:29 View: Portable, 1 view Interpretation / Wet Read by: Interpret - Radiologist Re-Eval/Medical Decision Med Decision/Clinical Course 86-year-old female brought in by her son from primary care clinic with concern for pneumonia. Differential diagnosis includes but is not limited to viral versus bacterial pneumonia versus urinary tract infection versus other occult infection. Patient's chest x-ray is concerning for left-sided pneumonia. She was initially tachycardic in the 120s, but improved with small aliquots of fluids. Her EKG was unremarkable. She has a mild leukocytosis, otherwise unremarkable CBC and CMP. Her pro BNP is mildly elevated. I have given her Rocephin and azithromycin and admitted her to the hospital for her tachycardia and pneumonia. She and family are amenable to admission. Source of Hx: Old records Re-Evaluation/Progress : Time of Eval: 21:04 Re-Evaluation/Progress Note: Discussed lab and imaging results and need for admission. Patient is amenable to the plan. All other questions addressed. Consultation : Referral / Consult Name: Spike Ortiz MD Consulted With: Hospitalist Call Returned at: 21:05 Title Department Manager: Agrees with eval, Agrees with plan, Accepts admit Counseled Regarding: Diagnosis, Lab results, Need for admission Discharge & Departure Impression: Primary Impression: Pneumonia Disposition: ADMITTED TO HOSPITAL Discharge Condition All VS Reviewed: Yes Condition: Stable Referrals: Natividad Rojas MD (PCP) Nicole Attestation Portions of this note were transcribed by Kavita Mejias and David Zaman. I, Dr. Mckeon personally performed the history, physical exam and medical decision- making; I reviewed and confirmed the accuracy of the information in the transcribed note. Signed by: Kavita Mejias and Nicole Menchaca, 01/30/17 and 22:08 copies to: Natividad Rojas MD, Rebecca A MD Jan 30, 2017 19:12 Brianda Mejias Jan 30, 2017 19:22 DAVID ZAMAN Jan 30, 2017 21:06
[2017-01-30 19:43] LABS: BASOPHILS % (AUTO) 0.3 % (0-3); EOSINOPHILS % (AUTO) 0.3 % (0-5); MONOCYTES % (AUTO) 9.2 % (4-12); Mean Corpuscular Hemoglobin 30.5 pg (27.0-35.0); Mean Corpuscular Volume 96.9 fL (81-100); NEUTROPHILS % (AUTO) 83.9 % (40-74); Platelet Count 308 bil/L (150-400)
[2017-01-30] MEDS ORDERED: BENZ100C8 PO (20:10)
[2017-01-30] MEDS ORDERED: AZIT250T4 PO (20:10)
[2017-01-30] MEDS ORDERED: MELA5TAB14 PO (20:13)
[2017-01-30] MEDS ORDERED: WARF5TAB7 PO ×2 (20:14→20:19)
[2017-01-30] MEDS ORDERED: cefTRIAXone Inj 1,000 MG in Dextrose 5% Minibag Plus 50 ML IV ONE (20:20)
[2017-01-30 20:27] LABS: Lipase 23 U/L (13-60); Magnesium 1.6 mg/dL (1.6-2.6)
--- NOTE | 2017-01-30 20:31 | DRSVH ---
PROCEDURE: X-RAY CHEST ONE VIEW, PORTABLE ([id number]) INDICATIONS: shortness of breath , cough TECHNIQUE: One view of the chest was acquired. COMPARISON: [facility], CR, XR CHEST 2VW, 12/06/2016, 8:43. FINDINGS: Surgical changes and devices: Sternotomy wires and cardiac pacer, CABG clips Lungs and pleura: No pleural effusions or pneumothorax. Diffuse bibasilar scarring/atelectasis with mildly increased patchy opacities in the left midlung region. Mediastinum: Mediastinal contours appear normal. Heart size is normal. Bones and chest wall: No suspicious bony lesions. Overlying soft tissues appear unremarkable. IMPRESSION: Mildly increased patchy opacities in the left midlung, suggestive of early pneumonia/aspiration. Plea se correlate clinically Dictated by: Les Bowen M.D. on 01/30/2017 at 20:28 Approved by: Les Bowen M.D. on 01/30/2017 at 20:29
[2017-01-30 20:32] LABS: APPEARANCE,URINE HAZY (CLEAR,HAZY); COLOR,URINE DARK YELLOW (YELLOW); OCCULT BLOOD,URINE MODERATE (NEGATIVE); PH,URINE 5.5 (5.0-8.0); UROBILINOGEN,URINE NORMAL (NORMAL)
[2017-01-30 20:34] LABS: TROPONIN T < 0.010 ug/L (0.0-0.011)
[2017-01-30] MEDS ORDERED: Ondansetron 2 mg/mL 2 mL Inj IVPUSH PRN ×2 (21:10→21:20)
[2017-01-30] MEDS ORDERED: Alum-Mag Hydrox-Simeth 30 mL Suspension PO PRN ×2 (21:10→21:20)
[2017-01-30] MEDS ORDERED: Polyethylene Glycol (PEG) 17 Gm Powder PO PRN (21:20)
[2017-01-30] MEDS ORDERED: FUR20 PO (21:21)
[2017-01-30] MEDS ORDERED: NITR100 PO (21:28)
[2017-01-30 21:46] LABS: INR 3.06 ratio
[2017-01-30 22:18] VITALS: BP 148/97; PULSE 112; RESP 26; O2SAT 95
--- NOTE | 2017-01-30 22:19 | PCM.HPMED ---
Subjective Date of Service Jan 30, 2017 Primary Provider: Admitting Physician: Spike Ortiz MD Primary Care Physician: Natividad Rojas MD Attending Physician: Spike Ortiz MD Chief Complaint: cough History of Present Illness: 86yo lady with hx of cad, htn, dvt on warfarin, sick sinus with pacemaker, dementia productive cough, weakness x 7-10 days. feels weak and tired. dec po intake. no n/v/d. no abd pain. no chest pain. a little short of breath. some chills. Review of Systems: Positive Review of Symptoms mentioned and elaborated on in HPI. Head: Denies H/A, trauma, loss of consciousness. Eyes: Denies visual loss, diplopia. Ears: Denies: deafness, tinnitis, discharge, pain Nose: Denies discharge, obstruction, epistaxis Mouth: Denies sores, gingival bleeding, jaw pain Neck: Denies stiffness, issues swallowing. Respiratory: see hpi Cardiovascular:Denies CP, palpitations, orthopnea, peripheral edema Gastrointestinal: Denies melena, abd pain, n/v/d Genitourinary: Denies dysuria, discharge. Skin: Denies: lesions, rashes, pruritus. Musculoskeletal: Denies joint pain, swelling or increased warmth. Neuro: Denies numbness, tingling, weakness. Psyc: Currently denies feelings of anxiety, depression. Allergies Coded Allergies: diltiazem (Verified Allergy, Severe, 11/09/12) lorazepam (Verified Allergy, Intermediate, 11/07/16) pantoprazole (Verified Allergy, Intermediate, 11/07/16) Home Medications see emr PMH see hpi Surgical History cabg, le stenting/bypass Family History dad heart disease Social History Hx Alcohol Use: No Hx Substance Use: No Hx Tobacco Use: No Smoking Status: Never Smoker Exam Vital Signs Vital Sign - Last Date Time Temp Pulse Resp B/P Pulse Ox O2 Delivery O2 Flow Rate FiO2 01/30/17 18:31 36.4 116 16 179/97 92 Room Air Exam General: No acute distress. Awake, alert. Head: Normocephalic, atraumatic. Eyes: White sclera. Conjunctiva non-injected. Mouth & Throat: No Bleeding. No erythema, lesions, exudates visualized. Neck: No tender adenopathy. Trachea midline. Respiratory: LLL rales otherwise Clear to auscultation bilaterally. Symmetric chest expansion. Regular work of breathing without use of accessory muscles. Cardiovascular: S1, S2. tachycardic Regular rhythm Pulses 2+ equal bilaterally. Abdomen: Normal bowel sounds x4 quadrants. Soft, non-tender, non-distended. Extremities: Intact. no joint effusions. no lower extremity tenderness, swelling , erythema or increased warmth. Skin: Intact, no lesions, no rash. Neurologic: Awake, alert, oriented x2. No focal deficits. Psychiatric: Appropriate mood and affect. Cooperative. Lab and Diagnostics Result Diagram: 01/30/17193401/30/171934 Assessment & Plan -- community aquired pneumonia abx, ivf. cultures -- cad -- htn -- HLD medical managment as tolerated -- hx of LE dvt cont warfarin -- f/e/n: po diet. monitor electrolytes -- dvt prophylaxis: lovenox Dipso: Admit to inpt tele with expected length of stay > 2 midnights. Resuscitation Status: CPR: Attempt Resuscitation Spike Ortiz MD Jan 30, 2017 22:19
[2017-01-30 22:31] VITALS: BP 162/78; PULSE 114; RESP 20; O2SAT 96
[2017-01-30] MEDS: 0.9% Sodium Chloride 1,000 ML IV SCH (22:47)
[2017-01-30] MEDS: Ampicillin-Sulbactam Inj 3,000 MG in 0.9% Sodium Chloride 100 ML IV SCH (22:47)
[2017-01-31] VITALS (7 sets, daily range): BP systolic 137–179; BP diastolic 69–79; PULSE 88–110; RESP 18–22; O2SAT 92–96
[2017-01-31] MEDS: Ampicillin-Sulbactam Inj 3,000 MG in 0.9% Sodium Chloride 100 ML IV SCH ×3 (03:53→16:25)
--- NOTE | 2017-01-31 05:15 | NUR ---
Arrival to [facility] room 3029 Patient arrived at 2230. alert to self. confused about place,location,and situation. easily reoriented. patient able to answer general admission assessment questions poor historian. most of the health history taken from medical records. IVF infusing. IV antibiotics infusing. 02 on 2L maintained above 90% while sleeping. bed alarm in place. 3 side rails up. will continue to monitor.
[2017-01-31 05:57] LABS: BASOPHILS % (AUTO) 0.2 % (0-3); EOSINOPHILS % (AUTO) 0.2 % (0-5); MONOCYTES % (AUTO) 11.8 % (4-12); Mean Corpuscular Hemoglobin 30.5 pg (27.0-35.0); Mean Corpuscular Volume 96.2 fL (81-100); NEUTROPHILS % (AUTO) 76.8 % (40-74); Platelet Count 311 bil/L (150-400)
[2017-01-31 06:17] LABS: Magnesium 1.6 mg/dL (1.6-2.6); Phosphorus 2.5 mg/dL (2.5-4.9)
[2017-01-31 09:17] LABS: INR 2.91 ratio
--- NOTE | 2017-01-31 10:02 | PCM.PHAPRO ---
Progress cough Date -Jan 31-Jan INR 3.06 2.91 INR change -0.15 Warf Dose 2.5mg at home 2.5 Duke Nye Pharm.D Jan 31, 2017 10:02
--- NOTE | 2017-01-31 10:52 | NUR ---
Evaluation completed. Please go to "Notes" then click on "Assessments and Notes" (bottom left corner of screen). Then select appropriate discipline tab on top of screen.
[2017-01-31] MEDS: 0.9% Sodium Chloride 1,000 ML IV SCH (14:58)
--- NOTE | 2017-01-31 15:36 | NUR ---
Social Work: Initial Assessment D: Per EMR review, pt is an 86 year old female. Pt is [employer] Medicare with no LTC insurance or VA Benefits. PCP is Natividad Rojas MD. NOK is Melquiades Brink, Son, . Pt's son stated he will look for DPOA/advanced care directive. Readmit score not available at this time. AIRPORT OPERATIONS COORDINATOR called pt's son-in-law, Melquiades, to discuss discharge planning. Sw role and contact information provided. See initial assessment. Pt is a resident at [facility] where she has a full-time private caregiver- family recently upped hours. Pt has baseline dementia and uses a walker. Son states pt has been stable with ambulation but requires assistance with all of her ADLs including, dressing, bathing, medication management, cooking and cleaning. Son-in-law reports this level of care appears to be working out well. No additional needs assessed at this time. SW will continue to follow for needs. A: Pt with dementia and who will require 24/7 care at time of discharge. P: Anticipate pt to discharge back to [place]. SW will contact son-in-law on day of discharge to provide transport in [facility]. SW will continue to follow for needs. ROZ Middleton Addendum: 01/31/17 at 1541 by YAO BANKS SS Amended: Links added.
--- NOTE | 2017-01-31 16:12 | NUR ---
Behavior/Respiratory/Speech Pt oriented to self only, easily re-oriented and redirected, is very forgetful. Requires reminders to not get OOB without assistance (pt found to have legs over side of bed off and on throughout shift). Does not use call light, frequent checks made on pt. [place] alarm on. 3 side rails up. 2L NC to maintain SpO2 mid-90s. Non-productive cough, pt swallows phlegm. TOOL GRINDER OPERATOR EXTERNAL in to see pt, honey thick liquids, dysphasia mech, meds whole in applesauce.
--- NOTE | 2017-01-31 16:39 | PCM.PNMED ---
Subjective Date of Service Jan 31, 2017 Subjective Doing OK per nursing, seen by nursing and started on a restricted diet. No fever, is coughing a lot. Nursing staff to keep head bed at 30 degrees please. Exam Vital Signs Vital Sign - Last Date Time Temp Pulse Resp B/P Pulse Ox O2 Delivery O2 Flow Rate FiO2 01/31/17 12:24 37.2 101 20 137/70 92 Nasal Cannula 2.00 Intake and Output 01/30/17 01/30/17 01/31/17 Cumulative From/Thru 15:00 23:00 07:00 01/30/17 18:31 - 01/31/17 05:36 Intake Total 250 ml 417 ml 667 ml Balance 250 ml 417 ml 667 ml Intake Oral 0 ml 0 ml IV Total 250 ml 417 ml 667 ml # Voids 3 3 # Bowel Movements 2 2 Exam Eyes; eom intact ENMT; moist mucus membranes, no active lesions CV; systolic murmur, irregular Resp; coarse with rhonchi GI; soft, non acute, non tender Skin; no rash Neuro; CN 2-12 intact move all 4 extremities, significant dementia, unable to engage patient Lab and Diagnostics Result Diagram: 01/31/17 0501/31/17 0531 Assessment & Plan 1- acute pneumonia, possible aspiration, poa, active. -change abx to zosyn and azithrmycin,, IV -cultures pending -procal and viral pcr panel -O2 as needed -speech therapy, keep head bed @ 30 degrees -strep and legionair antigens 2. chronic dvt, poa, stable -continue coumadin, INR therapeutic today -monitor daily 3.hypertensionn, poa, stable -continue coreg -hold lisinopril 4-CAD, poa, stable- continue patient carvedilol 5. demmentia, poa, stable -continua paroxetine 6. Disposition -Facility -pcp Natividad Rojas VTE Mechanical Devices: Intermittant Pneumatic CD Resuscitation Status: CPR: Attempt Resuscitation Gini Keller MD Jan 31, 2017 16:39
[2017-01-31] MEDS: Azithromycin Inj 500 MG in Dextrose 5% w/Vial Mate 250 ML IV SCH (19:51)
[2017-02-01] VITALS (9 sets, daily range): BP systolic 137–191; BP diastolic 73–112; PULSE 76–112; RESP 18; O2SAT 94–97
[2017-02-01] MEDS: Piperacillin-Tazo 3.375 Gm Inj 3.375 GM in Dextrose 5% Minibag Plus 50 ML IV SCH ×3 (00:07→16:04)
[2017-02-01] MEDS: 0.9% Sodium Chloride 1,000 ML IV SCH ×2 (04:25→18:27)
--- NOTE | 2017-02-01 05:28 | NUR ---
Uneventful night Patient slept throughout the night. HS melatonin given. Patient arouses easily to voice. alert to self only, easily redirectable to place, time, and situation. pleasant and cooperative with care. respiratory panel and urine pending. bed alarm in place for safety. Will continue to monitor.
[2017-02-01 06:40] LABS: BASOPHILS % (AUTO) 0.4 % (0-3); EOSINOPHILS % (AUTO) 1.4 % (0-5); MONOCYTES % (AUTO) 9.4 % (4-12); Mean Corpuscular Hemoglobin 30.5 pg (27.0-35.0); NEUTROPHILS % (AUTO) 77.5 % (40-74); Platelet Count 317 bil/L (150-400)
[2017-02-01 06:53] LABS: INR 2.71 ratio
--- NOTE | 2017-02-01 08:17 | PCM.PHAPRO ---
Progress cough Date -Jan 31-Feb 01-Jan INR 3.06 2.91 2.71 INR change -0.15 -0.2 Warf Dose 2.5mg at home 2.5 3 Duke Nye Pharm.D Feb 01, 2017 08:17
--- NOTE | 2017-02-01 09:25 | NUR ---
SUMA verbally signed by son via phone. Pt not appropriate to sign. ROZ Middleton
[2017-02-01] MEDS: PARoxetine 20 mg Tablet PO SCH (09:43)
--- NOTE | 2017-02-01 12:33 | PCM.PNMED ---
Subjective Date of Service Feb 01, 2017 Subjective Looks and feels better, ate some breakfast and lunch. Patient says she feels better, no new complaints. Exam Vital Signs Vital Sign - Last Date Time Temp Pulse Resp B/P Pulse Ox O2 Delivery O2 Flow Rate FiO2 02/01/17 10:15 36.7 80 18 180/81 97 Nasal Cannula 2.00 Intake and Output 01/31/17 01/31/17 02/01/17 Cumulative From/Thru 15:00 23:00 07:00 01/30/17 18:31 - 02/01/17 04:49 Intake Total 1689 ml 736 ml 3092 ml Balance 1689 ml 736 ml 3092 ml Intake Oral 580 ml 0 ml 580 ml IV Total 1109 ml 736 ml 2512 ml # Voids 4 2 9 # Bowel Movements 2 4 Exam Eyes; eom intact ENMT; moist mucus membranes, no active lesions CV; systolic murmur, irregular Resp; coarse with rhonchi, scatted expiratory wheezes, GI; soft, non acute, non tender Skin; no rash Neuro; CN 2-12 intact move all 4 extremities, much more alert, able to carry on a good conversation today Lab and Diagnostics Result Diagram: 02/01/17 0624 02/01/17 0624 Assessment & Plan 1- acute pneumonia, possible aspiration, poa, improving. -change abx to zosyn and azithrmycin, continue -cultures negative to date -procal 0.31 today -antigens negative -O2 as needed -speech therapy, keep head bed @ 30 degrees -repeat cxr and procal tomorrow am 2. chronic dvt, poa, stable -continue coumadin, INR therapeutic today -monitor daily 3.hypertensionn, poa, stable -continue coreg -hold lisinopril, consider restarting in a day or two 4-CAD, poa, stable- continue patient carvedilol 5. dementia, poa, stable -continua paroxetine 6. Disposition -Facility [facility] with 24h/7 in home caregivers -pcp Natividad Rojas VTE Mechanical Devices: Intermittant Pneumatic CD Resuscitation Status: CPR: Attempt Resuscitation Gini Keller MD Feb 01, 2017 12:33
[2017-02-01] MEDS: Potassium Chloride 20 mEq SR Tablet PO SCH (12:48)
[2017-02-01] MEDS: Azithromycin Inj 500 MG in Dextrose 5% w/Vial Mate 250 ML IV SCH (20:48)
[2017-02-02] VITALS (8 sets, daily range): BP systolic 129–186; BP diastolic 81–102; PULSE 78–100; RESP 14–20; O2SAT 93–96
--- NOTE | 2017-02-02 00:16 | NUR ---
Left arm pain: Pt verbalizing pain with any movement to left arm tonight. Stating that pain is from her left elbow up, pointing just below her left armpit. IV was in her left AC, patent and without pain at site; it was moved to the right arm to minimize activity to arm since it occluded whenever pt bended arm, requiring frequent repositioning. Tylenol administered and night hospitalist notified; x-rays ordered for the morning. Bruising was noted to left breast and elbow.
[2017-02-02] MEDS: Piperacillin-Tazo 3.375 Gm Inj 3.375 GM in Dextrose 5% Minibag Plus 50 ML IV SCH ×2 (00:33→07:49)
[2017-02-02 06:36] LABS: BASOPHILS % (AUTO) 0.6 % (0-3); EOSINOPHILS % (AUTO) 1.9 % (0-5); MONOCYTES % (AUTO) 9.9 % (4-12); Mean Corpuscular Hemoglobin 30.4 pg (27.0-35.0); Mean Corpuscular Volume 96.7 fL (81-100); NEUTROPHILS % (AUTO) 73.8 % (40-74); Platelet Count 342 bil/L (150-400)
[2017-02-02 06:51] LABS: INR 2.85 ratio
[2017-02-02] MEDS: 0.9% Sodium Chloride 1,000 ML IV SCH (07:49)
[2017-02-02] MEDS: Potassium Chloride 20 mEq SR Tablet PO SCH (09:13)
[2017-02-02] MEDS: PARoxetine 20 mg Tablet PO SCH (09:13)
--- NOTE | 2017-02-02 11:07 | DRSVH ---
PROCEDURE: X-RAY LEFT HUMERUS, MINIMUM TWO VIEWS ([id number]) INDICATIONS: fall, left arm pain TECHNIQUE: 2 views of the humerus were acquired. COMPARISON: None. FINDINGS: Bones: No fractures or dislocations. No suspicious bony lesions. Osteoarthritic changes involving acromioclavicular and glenohumeral joints. Soft tissues: No suspicious soft tissue calcifications. IMPRESSION: No displaced fracture seen. If there is continued pain, followup exam or additional harley ging such as MRI or CT could be performed for further assessment. Dictated by: David Perales RRA Interpreted: Alexandria Carrasco MD on 02/02/2017 at 11:07 Transcribed by: VICKY on 02/02/2017 at 11:07 Approved by: Alexandria Carrasco MD, PhD on 02/02/2017 at 17:19
--- NOTE | 2017-02-02 11:07 | DRSVH ---
PROCEDURE: X-RAY CHEST ONE VIEW, PORTABLE ([id number]) INDICATIONS: SHORTNESS OF BREATH TECHNIQUE: One view of the chest was acquired. COMPARISON: [facility], CR, XR CHEST 1VW (PORTABLE), 01/30/2017, 19:54. FINDINGS: Surgical changes and devices: Post median sternotomy. Stable positioning of right cardiac pacer. Lungs and pleura: Interval development of small left pleural effusion and mid/basilar airspace opacit y increased from prior examination. No pneumothorax. Mediastinum: Mediastinal contours appear normal. Heart size is normal. Bones and chest wall: No suspicious bony lesions. Overlying soft tissues appear unremarkable. IMPRESSION: 1. Left pleural effusion and interval increase in left mid/basilar air space opacity worrisome for pn eumonia versus aspiration and/or compressive atelectasis. Dictated by: David Perales A Interpreted: Alexandria Carrasco MD on 02/02/2017 at 11:06 Transcribed by: VICKY on 02/02/2017 at 11:07 Approved by: Alexandria Carrasco MD, PhD on 02/02/2017 at 17:18
--- NOTE | 2017-02-02 11:09 | DRSVH ---
PROCEDURE: X-RAY LEFT ELBOW COMPLETE, MINIMUM THREE VIEWS ([id number]) INDICATIONS: fall, left arm pain TECHNIQUE: 3 views of the elbow were acquired. COMPARISON: [facility], CR, SHOULDER LT MIN 2VW, 01/27/2017, 12:27 PM. [facility], C R, XR HUMERUS 2VW LT, 02/02/2017, 8:30. FINDINGS: Bones: No fractures or dislocations. No suspicious bony lesions. Soft tissues: Small elbow joint effusion. No suspicious soft tissue calcifications. Surgical clips present within the anterior soft tissues of the upper arm. IMPRESSION: No displaced fracture seen. If there is continued pain, followup exam or additional harley ging such as MRI or CT could be performed for further assessment. Dictated by: David Perales A Interpreted: Alexandria Carrasco MD on 02/02/2017 at 11:07 Transcribed by: VICKY on 02/02/2017 at 11:09 Approved by: Alexandria Carrasco MD, PhD on 02/02/2017 at 17:19
[2017-02-02] MEDS ORDERED: KCl 40 mEq/D5W 500 mL 40 MEQ in IV Premix 500 EACH IV ONE (11:10)
[2017-02-02] MEDS ORDERED: levoFLOXacin Dose Per Pharmacist XX ONE (11:10)
[2017-02-02] MEDS ORDERED: Potassium Chloride 20 mEq SR Tablet PO ONE (11:10)
[2017-02-02] MEDS: levoFLOXacin 250 mg Tablet PO SCH (14:20)
--- NOTE | 2017-02-02 17:43 | PCM.PNMED ---
Subjective Date of Service Feb 02, 2017 Subjective denies any pain or discomfort Exam Vital Signs Vital Sign - Last Date Time Temp Pulse Resp B/P Pulse Ox O2 Delivery O2 Flow Rate FiO2 02/02/17 14:00 36.9 88 16 150/82 96 Nasal Cannula 2.00 Intake and Output 02/01/17 02/01/17 02/02/17 Cumulative From/Thru 15:00 23:00 07:00 01/30/17 18:31 - 02/02/17 06:50 Intake Total 1278 ml 694 ml 5064 ml Balance 1278 ml 694 ml 5064 ml Intake Oral 736 ml 0 ml 1316 ml IV Total 542 ml 694 ml 3748 ml # Voids 3 2 14 # Bowel Movements 4 Exam pleasantly disoriented x 2 General: Alert, Cooperative, No Acute Distress Eyes: Scleral Anicteric Nose: Mucous Membr Moist/Hamel Mouth: Mucous Membr Moist/[place] Neck: Supple Chest & Lungs: Chest Wall Normal, Clear to auscultation & percussion Cardiovascular: Regular Rate/Rhythm Abdomen: Non-tender, Non-distended, Normoactive bowel tones, Soft Extremities: No cyanosis/clubbing/edma bilat Neurological: Grossly Neurologically Intact, Normal Speech IVs and Medications Medications Reviewed: Medications were reviewed in detail Lab and Diagnostics Result Diagram: 02/02/1760802/02/17608 Assessment & Plan 86 year old female with a history of dementia, PR, CHF, hypertension, CAD with CABGx2, and DVT presents to the ED accompanied by her son in law due to two weeks of dry cough. Associated symptom of three days of diarrhea, mostly in the mornings. Son in law reported global weakness, with difficulty transferring. # acute pneumonia, possible aspiration, poa, improving. -change abx from Zosyn and Azithromycin to Levo -cultures negative to date -antigens negative -O2 as needed -speech therapy, keep head bed @ 30 degrees # Acute hypernatremia, not poa. - change IVF from NS to 1/2 NS and f/u # Acute hypokalemia. poa. ongoing - replete and f/u # chronic DVT, poa, stable -continue Coumadin, INR therapeutic today -monitor daily # Hypertension, poa, stable -continue Coreg -hold lisinopril, consider restarting in a day or two # CAD, poa, stable - continue patient carvedilol # dementia, poa, stable -continua paroxetine Dispo: 1-2 days VTE Mechanical Devices: Intermittant Pneumatic CD Resuscitation Status: CPR: Attempt Resuscitation Ricky Pires Feb 02, 2017 17:42
[2017-02-03] VITALS (8 sets, daily range): BP systolic 129–207; BP diastolic 68–102; PULSE 62–98; RESP 16–20; O2SAT 92–98
--- NOTE | 2017-02-03 03:55 | NUR ---
Pain: Medicated with Tylenol x1 at HS for c/o left upper arm pain. X-rays were done yesterday, pt stated x-rays were "ok". Only report pain with movement, guards it when staff assist with transferring. Up to the BSC x1 with 2 assist, small loose BM x1. Able to sleep between care.
[2017-02-03 06:31] LABS: BASOPHILS % (AUTO) 0.5 % (0-3); EOSINOPHILS % (AUTO) 2.3 % (0-5); MONOCYTES % (AUTO) 10.3 % (4-12); Mean Corpuscular Hemoglobin 30.2 pg (27.0-35.0); Mean Corpuscular Volume 96.6 fL (81-100); NEUTROPHILS % (AUTO) 73.9 % (40-74); Platelet Count 345 bil/L (150-400)
[2017-02-03 06:38] LABS: INR 3.29 ratio
[2017-02-03 06:49] LABS: Magnesium 1.8 mg/dL (1.6-2.6)
--- NOTE | 2017-02-03 07:38 | PCM.PHAPRO ---
Progress cough WARFARIN DOSE PER PHARMACY h NTV rtm RTM DFF DFF Date -Jan 31-Feb 01-Feb 02-Feb 03-Jan INR 3.06 2.91 2.71 2.85 3.29 INR change -0.15 -0.2 0.14 0.44 Warf Dose 2.5mg at home 2.5 3 2.5 HOLD Supratherapeutic INR. Possibly seeing effects of 3mg dose a few days ago along with decrease in activity level during hospitalization. Currently no signs of bleeding documented. Will continue to monitor. Everardo Loza, PharmD Everardo Loza Feb 03, 2017 07:38
[2017-02-03] MEDS: PARoxetine 20 mg Tablet PO SCH (10:10)
[2017-02-03] MEDS: Potassium Chloride 20 mEq SR Tablet PO SCH (10:11)
[2017-02-03] MEDS: levoFLOXacin 250 mg Tablet PO SCH (10:11)
--- NOTE | 2017-02-03 17:16 | NUR ---
Social Work: Readiness for Discharge D: EMR reviewed. Pt is on day 4 of hospitalization for pneumonia. Pt is not medically cleared for discharge and per morning rounds MD anticipates discharge tomorrow. Pt will discharge back to [place] with 24/7 caregiver and resume Tara LOCKWOOD Son-in-law reports this level of care appears to be working out well. Son in law requests phone call on day of discharge and will provide transport in [place]. No additional needs assessed at this time. SW will continue to follow for needs. A: Pt with dementia and who will require 24/7 care at time of discharge. P: Anticipate pt to discharge back to [facility]. SW will contact son-in-law on day of discharge to provide transport in [place]. SW will continue to follow for needs. ROZ Middleton
--- NOTE | 2017-02-03 18:03 | PCM.PNMED ---
Subjective Date of Service Feb 03, 2017 Subjective denies any pain or discomfort Exam Vital Signs Vital Sign - Last Date Time Temp Pulse Resp B/P Pulse Ox O2 Delivery O2 Flow Rate FiO2 02/03/17 16:33 36.8 81 19 153/68 96 Nasal Cannula 1.00 Intake and Output 02/02/17 02/02/17 02/03/17 Cumulative From/Thru 15:00 23:00 07:00 01/30/17 18:31 - 02/03/17 06:12 Intake Total 687 ml 1832 ml 7583 ml Output Total 400 ml 400 ml Balance 287 ml 1832 ml 7183 ml Intake Oral 687 ml 0 ml 2003 ml IV Total 1832 ml 5580 ml Output Urine Total 400 ml 400 ml # Voids 4 4 22 # Bowel Movements 3 1 8 Exam pleasantly disoriented x 2 General: Alert, Cooperative, No Acute Distress Eyes: Scleral Anicteric Nose: Mucous Membr Moist/[place] Mouth: Mucous Membr Moist/[place] Neck: Supple Chest & Lungs: Chest Wall Normal, mild upper respiratory rhonchi bilaterally Cardiovascular: Regular Rate/Rhythm Abdomen: Non-tender, Non-distended, Normoactive bowel tones, Soft Extremities: No cyanosis/clubbing/edema bilat Neurological: Grossly Neurologically Intact, Normal Speech IVs and Medications Medications Reviewed: Medications were reviewed in detail Lab and Diagnostics Result Diagram: 02/03/17 0600 02/03/17 0600 Assessment & Plan 86 year old female with a history of dementia, MD, CHF, hypertension, CAD with CABGx2, and DVT presents to the ED accompanied by her son in law due to two weeks of dry cough. Associated symptom of three days of diarrhea, mostly in the mornings. Son in law reported global weakness, with difficulty transferring. # acute pneumonia, possible aspiration, poa, improving. -changed abx from Zosyn and Azithromycin to Levo on 02/02/17 -cultures negative to date -antigens negative -O2 as needed -speech therapy, keep head bed @ 30 degrees # Acute hypernatremia, not present on admission. - Resolved # Acute hypokalemia. present on admission - resolved. # chronic DVT, poa, stable -continue Coumadin, INR therapeutic today -monitor daily # Hypertension, poa, stable -continue Coreg -hold lisinopril, consider restarting in a day or two # CAD, poa, stable - continue patient carvedilol # dementia, poa, stable -continua paroxetine Dispo: 1-2 days pending improved wbc and stable inr VTE Mechanical Devices: Intermittant Pneumatic CD Resuscitation Status: CPR: Attempt Resuscitation Ricky Pires Feb 03, 2017 18:03
--- NOTE | 2017-02-04 00:08 | NUR ---
TRANSF[place] [facility] [place], report given to Stacy Mcdonald.
--- NOTE | 2017-02-04 04:27 | NUR ---
Transfer from [facility] received phone report from [facility] RN at 2300, pt arrived to floor at 2330, pt on bed, accompanied by RN and STOP ATTACHER, pt with baseline confusion, redirectable, IV on R hand running IVF, pt denies pain/discomfort, at 0200 noted pt pulled IV access, restarted 24 gauge on R lower arm, pt on yomi alarm, placed close to nurses station, qhrly checks for safety.
[2017-02-04 05:36] VITALS: BP 162/70; PULSE 100; RESP 16; O2SAT 98
[2017-02-04 06:45] LABS: BASOPHILS % (AUTO) 0.6 % (0-3); MONOCYTES % (AUTO) 8.9 % (4-12); Mean Corpuscular Volume 96.6 fL (81-100); NEUTROPHILS % (AUTO) 72.5 % (40-74); Platelet Count 363 bil/L (150-400)
[2017-02-04 06:56] LABS: INR 2.54 ratio
[2017-02-04 07:30] VITALS: BP 177/108; PULSE 106; RESP 20; O2SAT 96
[2017-02-04] MEDS: PARoxetine 20 mg Tablet PO SCH (08:30)
[2017-02-04] MEDS: levoFLOXacin 250 mg Tablet PO SCH (08:30)
[2017-02-04] MEDS: Potassium Chloride 20 mEq SR Tablet PO SCH (08:30)
[2017-02-04 10:42] VITALS: BP 151/83; PULSE 68
[2017-02-04] MEDS ORDERED: LVF250T PO (11:19)
--- NOTE | 2017-02-04 11:33 | PCM.DIMED ---
Discharge Instructions Date of Service Feb 04, 2017 Dates of Hospitalization Jan 30, 2017 at 21:46 Discharge Diagnosis Discharge Diagnosis # Acute pneumonia, possible community acquired vs aspiration, present on admission, improving. # Acute hypernatremia, not present on admission. - Resolved # Acute hypokalemia. present on admission - Resolved. # Chronic DVT, stable - Chronic anticoagulation with Coumadin, INR therapeutic today (2.54) # Chronic Hypertension, stable # Chronic coronary artery disease (CAD), stable # Chronic dementia, stable Medication Instructions Check INR in 1-2 days and adjust Coumadin/Warfarin dose as needed (goal INR 2-3) Diet Low fat, Low Sodium, Heart Healthy Activity Home Health Phyical Therapy Call your provider Fever or Chills, Shortness of breath, Chest pain, Vomitting, Excessive diarrhea Patient Instructions Seek immediate medical attention if any new or worsening signs or symptoms occur. Follow-up plan 1. Followup with primary care provider (Dr. Fletcher covering for Dr. Rojas) on Thursday02/06/17 at 11:00 AM and to recheck INR and adjust Coumadin dose as needed. Follow-up Provider: Lily Fletcher MD Follow-up with PCP in: Other (Thursday02/06/17 at 11:00 AM) Provider: Natividad Rojas MD, Masoud Feb 04, 2017 11:33
--- NOTE | 2017-02-04 13:22 | PCM.DC.MED ---
Discharge Summary Date of Service Feb 04, 2017 Dates of Hospitalization Date of Hospital Admission Jan 30, 2017 at 21:46 Date of Discharge: Feb 04, 2017 Providers: Admitting Physician: Spike Ortiz MD Primary Care Physician: Natividad Rojas MD Attending Physician: Spike Ortiz MD Diagnosis at Time of Discharge Diagnosis at Time of Discharge # Acute pneumonia, possible community acquired vs aspiration, present on admission, improving. # Acute hypernatremia, not present on admission. - Resolved # Acute hypokalemia. present on admission - Resolved. # Chronic DVT, stable - Chronic anticoagulation with Coumadin, INR therapeutic today (2.54) # Chronic Hypertension, stable # Chronic coronary artery disease (CAD), stable # Chronic dementia, stable Procedures XRay, CTs & MRIs Date of Service: 01/30/17 9381 PROCEDURE: X-RAY CHEST ONE VIEW, PORTABLE ([id number]) IMPRESSION: Mildly increased patchy opacities in the left midlung, suggestive of early pneumonia/aspiration. Please correlate clinically Dictated by: Les Bowen M.D. on 01/30/2017 at 20:28 Approved by: Les Bowen M.D. on 01/30/2017 at 20:29 Date of Service: 02/02/17 3893 PROCEDURE: X-RAY LEFT HUMERUS, MINIMUM TWO VIEWS ([id number]) IMPRESSION: No displaced fracture seen. If there is continued pain, followup exam or additional imaging such as MRI or CT could be performed for further assessment. Dictated by: David Perales [facility] Interpreted: Alexandria Carrasco MD on 02/02/2017 at 11:07 Transcribed by: VICKY on 02/02/2017 at 11:07 Approved by: Alexandria Carrasco MD, PhD on 02/02/2017 at 17:19 Date of Service: 02/02/17 5654 PROCEDURE: X-RAY LEFT ELBOW COMPLETE, MINIMUM THREE VIEWS ([id number]) IMPRESSION: No displaced fracture seen. If there is continued pain, followup exam or additional imaging such as MRI or CT could be performed for further assessment. Dictated by: David Perales RRA Interpreted: Alexandria Carrasco MD on 02/02/2017 at 11:07 Transcribed by: VICKY on 02/02/2017 at 11:09 Approved by: Alexandria Carrasco MD, PhD on 02/02/2017 at 17:19 Brief History As noted in H&P by Dr. Ortiz: 86yo lady with hx of cad, htn, dvt on warfarin, sick sinus with pacemaker, dementia productive cough, weakness x 7-10 days. feels weak and tired. dec po intake. no n/v/d. no abd pain. no chest pain. a little short of breath. some chills. Hospital Course # acute pneumonia, possible community acquired vs aspiration, clinically improved -changed abx from Zosyn and Azithromycin to Levo on 02/02/17 -cultures negative to date -antigens negative -speech therapy, keep head bed @ 30 degrees # Acute hypernatremia, not present on admission. - Resolved # Acute hypokalemia. present on admission - resolved. # chronic DVT, poa, stable -continue Coumadin, INR therapeutic today # Hypertension, poa, stable -continue with home meds # CAD, poa, stable - continue patient carvedilol # dementia, poa, stable -continua paroxetine by day of d/c lungs CTA bilat. patient continues to remain pleasantly confused. She denies any shortness of breath or cough Exam Vital Signs (Last) Date Time Temp Pulse Resp B/P Pulse Ox O2 Delivery O2 Flow Rate FiO2 02/04/17 10:42 68 151/83 02/04/17 07:30 36.9 20 96 Nasal Cannula 2.00 Test 01/30/17 19:35 01/30/17 20:04 01/31/17 05:31 02/01/17 04:20 Lactic Acid Level 1.3mmol/L (0.4-2.0) Total Bilirubin 0.8mg/dL (0.0-1.2) Aspartate Amino Transf (AST/SGOT) 20U/L (0-50) Alanine Aminotransferase (ALT/SGPT) 19U/L (0-32) Alkaline Phosphatase 113U/L (25-165) Pro-B-Type Natriuretic Peptide 1401pg/mL (0-738) Total Protein 8.4g/dL (6.4-8.4) Albumin 4.0g/dL (3.4-5.0) Lipase 23U/L (13-60) Urine Color Dark yellow (YELLOW) Urine Appearance Hazy (CLEAR,HAZY) Urine pH 5.5 (5.0-8.0) Urine Specific [place] 1.025 (1.003-1.035) Urine Protein 100mg/dL (NEG,TRACE) Urine Glucose (UA) Negativemg/dL (NEGATIVE) Urine Ketones 15mg/dL (NEGATIVE) Urine Occult Blood Moderate (NEGATIVE) Urine Nitrite Negative (NEGATIVE) Urine Bilirubin Negative (NEGATIVE) Urine Urobilinogen Normalmg/dL (NORMAL) Urine Leukocyte Esterase Trace (NEGATIVE) Urine RBC 3-10/hpf (0-2) Urine WBC 6-10/hpf (0-5) Urine Epithelial Cells Few/hpf (NONE-MOD) Urine Crystals None seen (NONE SEEN) Urine Bacteria Moderate/hpf (NONE-FEW) Urine Hyaline Casts None/lpf (NONE) Urine Granular Casts None seen (NONE SEEN) Urine Waxy Casts None seen (NONE SEEN) Urine Red Blood Cell Casts None seen (NONE SEEN) Urine White Blood Cell Casts None seen (NONE SEEN) Urine Mucus Present (None Seen) Urine Trichomonas None seen (NONE SEEN) Urine Yeast None (NONE SEEN) Urine Culture Reflexed Indicated Hemoglobin A1c 6.1% (4.8-5.6) Phosphorus Level 2.5mg/dL (2.5-4.9) Triglycerides Level 81mg/dL (0-149) Cholesterol Level 162mg/dL (100-199) LDL Cholesterol, Calculated 96.800mg/dL (0-99) VLDL Cholesterol 16.200mg/dL HDL Cholesterol 49mg/dL (>39) Cholesterol/HDL Ratio 3.31 (0.0-4.4) Urine Legionella pneumophilia Ag Negative (Negative) Test 02/01/17 06:24 02/03/17 06:00 02/04/17 05:55 Troponin T < 0.010ug/L (0.0-0.011) Sodium Level 143mEq/L (134-144) Potassium Level 4.0mEq/L (3.5-5.2) Chloride Level 108mEq/L (97-108) Carbon Dioxide Level 21mmol/L (18-29) Blood Urea Nitrogen 9mg/dL (8-27) Creatinine 0.68mg/dL (0.57-1.00) Estimat Glomerular Filtration Rate 117mL/min (>59) Glucose Level 107mg/dL (60-99) Calcium Level 8.7mg/dL (8.5-10.1) Magnesium Level 1.8mg/dL (1.6-2.6) White Blood Count 10.5th/mm3 (3.8-10.1) Red Blood Count 3.53mil/mm3 (3.90-5.20) Hemoglobin 10.6g/dL (12.0-15.6) Hematocrit 34.1% (35.0-46.0) Mean Corpuscular Volume 96.6fL (81-100) Mean Corpuscular Hemoglobin 30.0pg (27.0-35.0) Mean Corpuscular Hemoglobin Concent 31.1% (32.0-37.0) Red Cell Distribution Width 15.4% (12.3-15.4) Platelet Count 363bil/L (150-400) Neutrophils (%) (Auto) 72.5% (40-74) Lymphocytes (%) (Auto) 14.4% (14-46) Monocytes (%) (Auto) 8.9% (4-12) Eosinophils (%) (Auto) 2.0% (0-5) Basophils (%) (Auto) 0.6% (0-3) Prothrombin Time 27.7sec (8.1-12.5) Prothromb Time International Ratio 2.54ratio Procalcitonin 0.12ng/mL (0.00-0.08) Discharge Medications Discharge Medications Carvedilol (Carvedilol) 3.125 Mg Tablet 3.125 MG PO BID Prescribed by: ARABELLA PRATHER MD Levofloxacin (Levaquin) 250 Mg Tablet 250 MG PO DAILY Prescribed by: DESIRAE NARANJO MD Lisinopril (Lisinopril) 5 Mg Tablet 5 MG PO QAM (Reported) Melatonin (Melatonin) 5 Mg Tablet 5 MG PO HS (Reported) Paroxetine (Paroxetine) 20 Mg Tablet 20 MG PO QAM (Reported) Warfarin Sodium (Warfarin Sodium) 5 Mg Tablet 2.5 MG PO S, M, W, , Fri ( Reported) 5 MG TUES/SAT, 2.5 MG ALL OTHER DAYS Warfarin Sodium (Warfarin Sodium) 5 Mg Tablet 5 MG PO Tue, Sat (Reported) 5 MG TUES/SAT, 2.5 MG ALL OTHER DAYS As needed Benzonatate (Benzonatate) 100 Mg Capsule 100-200 MG PO Q8hr PRN PRN For Cough ( Reported) Additional med instructions Check INR in 1-2 days and adjust Coumadin/Warfarin dose as needed (goal INR 2-3) Followup Plan Disposition: Home with 18/05 care and resume home health Follow-up plan 1. Followup with primary care provider (Dr. Fletcher covering for Dr. Rojas) on Thursday02/06/17 at 11:00 AM and to recheck INR and adjust Coumadin dose as needed. Discharge Diet: Low fat, Low Sodium, Heart Healthy Discharge Activity: Home Health Phyical Therapy Patient Instructions Seek immediate medical attention if any new or worsening signs or symptoms occur. Follow-up Provider: Lily Fletcher MD Follow-up with PCP in: Other (Thursday02/06/17 at 11:00 AM) Provider: Natividad Rojas MD Time spent 35 min copies to: Lily Fletcher MD; Natividad Rojas MD, Masoud Feb 04, 2017 13:22
--- NOTE | 2017-02-04 14:20 | NUR ---
Social Work Note: Discharge Data& Assessment: Per pt is medically ready to discharge home to [facility] with 24/7 caregiving and resume [facility] PT and RN. Sulaiman Gtz is a 86 year old female admitted on 01/30/2017 for pneumonia. Per pt is medically improved and ready for discharge. SW spoke to pt son Melquiades who will be transporting pt privatly back to [facility] today at 4:00p.m. RN notified. CARLIN spoke with Daron from [facility] and notified him of pt discharge to resume home health services. Pt son denies any other needs. No other discharge needs identified. All updated and agreeable to plan. Plan: Per pt is medically ready to discharge home to [facility] with 24/7 caregiving and resume [facility] of [facility] PT and RN. Pt son denies any other needs. No other discharge needs identified. All updated and agreeable to plan. ROZ Moffett
--- NOTE | 2017-02-04 16:28 | NUR ---
Discharge Reviewed DC instructions with patient and ASHLEY. Family stated understanding Hard script in folder, given to family All belongings taken. Pt taken out in w/ch to [facility] by family.
== END 2017-02-04 15:50 | disposition home health service (06) | DRG 194 ==
LOC: SED 18:19 → MPC 21:46 → MOC 02-03 23:15
PROVIDERS: ADMIT Family Medicine; ATTEND Family Medicine
DX: J18.9 Pneumonia, unspecified organism (principal); I82.502 Chronic embolism and thrombosis of unspecified deep veins of left lower extremity; E87.0 Hyperosmolality and hypernatremia; I25.10 Atherosclerotic heart disease of native coronary artery without angina pectoris; E78.5 Hyperlipidemia, unspecified; F03.90 Unspecified dementia, unspecified severity, without behavioral disturbance, psychotic disturbance, mood disturbance, and anxiety; E87.6 Hypokalemia; I10 Essential (primary) hypertension; Z79.01 Long term (current) use of anticoagulants; Z95.828 Presence of other vascular implants and grafts; I25.2 Old myocardial infarction; Z95.0 Presence of cardiac pacemaker

== ENCOUNTER 2017-05-21 12:41 | Emergency (ER) | payer MEDICARE ==
[~2017-05-21] VITALS: Ht 167.6 cm; Wt 78.2 kg
[~2017-05-21 12:41] MED LIST changes: -ASPI81TA3 PO; +BENZ100C8 PO; -FUR20 PO; -LOV80 SUBQ; +LVF250T PO; +MELA5TAB14 PO; -WARF2TAB PO; +WARF5TAB7 PO
[2017-05-21 12:50] VITALS: BP 108/66; PULSE 85; RESP 10; O2SAT 96
--- NOTE | 2017-05-21 13:30 | ED.REPORT ---
HPI- Female Date of Service May 21, 2017 ED Provider: History of Present Illness: bleeding from urine and or stool. 2 episodes this am. adan is primary care, seen yesterday for diarrhea. PAD, stents placed, dementia. lives at [facility], has care givers hired by family. no DM Nursing Notes Stated Complaint: BLOOD IN URINE Chief Complaint: Female Abdominal Pain Nursing Notes Reviewed: Yes Allergies: Coded Allergies: diltiazem (Verified Allergy, Severe, 11/09/12) lorazepam (Verified Allergy, Intermediate, 11/07/16) pantoprazole (Verified Allergy, Intermediate, 11/07/16) Scheduled Carvedilol (Carvedilol) 3.125 Mg Tablet 3.125 MG PO BID Levofloxacin (Levaquin) 250 Mg Tablet 250 MG PO DAILY Lisinopril (Lisinopril) 5 Mg Tablet 5 MG PO QAM Melatonin (Melatonin) 5 Mg Tablet 5 MG PO HS Paroxetine (Paroxetine) 20 Mg Tablet 20 MG PO QAM Warfarin Sodium (Warfarin Sodium) 5 Mg Tablet 2.5 MG PO S, , , , Thu 5 MG TUES/SAT, 2.5 MG ALL OTHER DAYS Warfarin Sodium (Warfarin Sodium) 5 Mg Tablet 5 MG PO Tue, Sat 5 MG TUES/SAT, 2.5 MG ALL OTHER DAYS Scheduled PRN Benzonatate (Benzonatate) 100 Mg Capsule 100-200 MG PO Q8hr PRN PRN For Cough General Time Seen by MD: 13:29 Chief Complaint Blood in urine Hx Obtained From: Daughter (Jacqui provides hx) Sudden in Onset?: Yes Symptom Duration: Since onset Past Medical History Past Medical History Hyperlipidemia Hypertension CAD with CABG x2 Extensive peripheral vascular disease, status post fem-fem grafting with multiple revisions Anxiety Atherosclerosis of [place] arteries of extremities with intermittent claudication, bilateral legs Memory loss Hx of [place] Sick sinus syndrome Reports: Hyperlipidemia, Hypertension Past Surgical History Pacemaker placement stents for PVD Reports: CABG Smoking History Never Smoker Social History Lives in assisted living facility [facility] 05/21/2017 Alcohol Use: Denies alcohol use Drug Use: Denies drug use Other Social History: Good social support Occupation lives in [facility] 05/19/2017 Ambulatory Status Independent Review of Systems Basic Review of Systems Eyes: Vision NL, No discharge Respiratory: No shortness of breath, No cough, No wheeze Allergy / Immune: No allergy Physical Exam Initial Vital Signs Vital Signs (First) Date Time Temp Pulse Resp B/P Pulse Ox O2 Delivery O2 Flow Rate FiO2 05/21/17 12:50 37.1 85 10 108/66 96 Room Air Initial VS: Reviewed, Vital signs normal General/Constitutional: Well-developed, Well-nourished Head / Eyes: Atraumatic, Normocephalic, PERRL ENT: Mucous membranes moist, Conjunctiva normal, No scleral icterus Neck: Supple, Non-tender, Full range of motion Respiratory: Breath sounds normal, Clear to auscultation, No respiratory distress Cardiovascular: Regular rate & rhythm, Heart sounds normal, Intact distal pulses Abdomen / GI: Soft, Non-tender, No guarding, No rebound, No distention Back: No CVA tenderness Lymphatic: No lymphadenopathy Extremities: Vascular intact, Neuro intact, No swelling, No tenderness Skin: Warm, Dry, No cyanosis Neurologic: Alert, Oriented, Nonfocal Psychiatric: Mood/affect normal, Behavior normal, Normal thought content No sign of bleeding General/Constitutional: Awake, Alert, No acute distress, Well appearing, Well developed, Well hydrated Respiratory / Chest: Atraumatic, Breath sounds NL, Breath sounds = bilat, No respiratory distress Cardiovascular: Heart rate NL, Regular rhythm, Heart sounds NL Abdomen: Atraumatic, Soft, Non-tender, McBurney's non-tender Rectum / Perineum: Atraumatic Rectum / Perineum Abnl: Positive: Hemorrhoid external guiac negative Interpretation & Diagnostics Lab Results Interpretation Result Diagram: 05/21/17 1341 05/21/17 1341 Test 05/21/17 13:41 05/21/17 15:09 White Blood Count 7.4th/mm3 (3.8-10.1) Red Blood Count 4.00mil/mm3 (3.90-5.20) Hemoglobin 13.0g/dL (12.0-15.6) Hematocrit 40.1% (35.0-46.0) Mean Corpuscular Volume 100.3fL (81-100) Mean Corpuscular Hemoglobin 32.5pg (27.0-35.0) Mean Corpuscular Hemoglobin Concent 32.4% (32.0-37.0) Red Cell Distribution Width 15.3% (12.3-15.4) Platelet Count 259bil/L (150-400) Neutrophils (%) (Auto) 66.2% (40-74) Lymphocytes (%) (Auto) 23.7% (14-46) Monocytes (%) (Auto) 8.1% (4-12) Eosinophils (%) (Auto) 1.2% (0-5) Basophils (%) (Auto) 0.5% (0-3) Prothrombin Time 21.0sec (8.1-12.5) Prothromb Time International Ratio 1.94ratio Sodium Level 143mEq/L (134-144) Potassium Level 3.5mEq/L (3.5-5.2) Chloride Level 104mEq/L (97-108) Carbon Dioxide Level 23mmol/L (18-29) Blood Urea Nitrogen 17mg/dL (8-27) Creatinine 0.77mg/dL (0.57-1.00) Estimat Glomerular Filtration Rate 101mL/min (>59) Glucose Level 91mg/dL (60-99) Lactic Acid Level 1.1mmol/L (0.4-2.0) Calcium Level 9.0mg/dL (8.5-10.1) Total Bilirubin 0.7mg/dL (0.0-1.2) Aspartate Amino Transf (AST/SGOT) 19U/L (0-50) Alanine Aminotransferase (ALT/SGPT) 15U/L (0-32) Alkaline Phosphatase 90U/L (25-165) Total Protein 7.2g/dL (6.4-8.4) Albumin 3.7g/dL (3.4-5.0) Urine Color Yellow (YELLOW) Urine Appearance Hazy (CLEAR,HAZY) Urine pH 5.5 (5.0-8.0) Urine Specific [place] 1.020 (1.003-1.035) Urine Protein Negativemg/dL (NEG,TRACE) Urine Glucose (UA) Negativemg/dL (NEGATIVE) Urine Ketones Negativemg/dL (NEGATIVE) Urine Occult Blood Trace (NEGATIVE) Urine Nitrite Negative (NEGATIVE) Urine Bilirubin Negative (NEGATIVE) Urine Urobilinogen Normalmg/dL (NORMAL) Urine Leukocyte Esterase Small (NEGATIVE) Urine RBC 0-2/hpf (0-2) Urine WBC 0-5/hpf (0-5) Urine Epithelial Cells Occasional/hpf (NONE-MOD) Urine Crystals None seen (NONE SEEN) Urine Bacteria Few/hpf (NONE-FEW) Urine Hyaline Casts None/lpf (NONE) Urine Granular Casts None seen (NONE SEEN) Urine Waxy Casts None seen (NONE SEEN) Urine Red Blood Cell Casts None seen (NONE SEEN) Urine White Blood Cell Casts None seen (NONE SEEN) Urine Mucus Present (None Seen) Urine Trichomonas None seen (NONE SEEN) Urine Yeast None (NONE SEEN) Urinalysis Comment None Urine Culture Reflexed Indicated Re-Eval/Medical Decision Med Decision/Clinical Course 87 year old female presents for evualation of bright red bleeding on stool times 2 episodes this am. Noticed by child care provider. Patient with significant dementia. Denies pain. Urine does not provide any answers, labs are normal. Had p[lanned to do a CT if above did not provide answers. Family elects to go home. Encouraged follow up. No sign of urine infection . Discharge & Departure Impression: Primary Impression: Rectal bleed Disposition: Home Patient Instructions: Rectal Bleeding (ED) Additional Instructions: Her labs are looking good. The urine does not show clear sign of infection. It is being cultured, if anything abnormal grows out, we will notify you. At this time, I do not have an explanation for the bleeding. She is guaiac negative in the ER. This may have been a internal hemorrhoid that bleed. If the bleeding returns, return to the ER. Follow with primary care as needed. Referrals: Natividad Rojas MD (PCP) EDSupervising Provider for APC: Pipo Alcala MD copies to: Natividad Rojas MD, Sue ARNP May 21, 2017 13:30
[2017-05-21] MEDS ORDERED: 0.9% Sodium Chloride 500 ML IV ONE (13:45)
[2017-05-21 14:01] LABS: BASOPHILS % (AUTO) 0.5 % (0-3); EOSINOPHILS % (AUTO) 1.2 % (0-5); MONOCYTES % (AUTO) 8.1 % (4-12); Mean Corpuscular Hemoglobin 32.5 pg (27.0-35.0); Mean Corpuscular Volume 100.3 fL (81-100); NEUTROPHILS % (AUTO) 66.2 % (40-74); Platelet Count 259 bil/L (150-400)
[2017-05-21 14:15] LABS: INR 1.94 ratio
[2017-05-21 15:32] LABS: APPEARANCE,URINE HAZY (CLEAR,HAZY); COLOR,URINE YELLOW (YELLOW); OCCULT BLOOD,URINE TRACE (NEGATIVE); PH,URINE 5.5 (5.0-8.0); UROBILINOGEN,URINE NORMAL (NORMAL)
[2017-05-21 15:34] VITALS: PULSE 76; O2SAT 94
[2017-05-21 16:45] VITALS: BP 121/94; PULSE 90; RESP 18; O2SAT 96
== END 2017-05-21 16:45 | disposition home or self-care (01) ==
LOC: SED 12:41
DX: K62.5 Hemorrhage of anus and rectum (principal); E78.5 Hyperlipidemia, unspecified; I10 Essential (primary) hypertension; I25.10 Atherosclerotic heart disease of native coronary artery without angina pectoris; F03.90 Unspecified dementia, unspecified severity, without behavioral disturbance, psychotic disturbance, mood disturbance, and anxiety; Z95.5 Presence of coronary angioplasty implant and graft; Z79.01 Long term (current) use of anticoagulants; Z95.0 Presence of cardiac pacemaker; I25.2 Old myocardial infarction; Z88.8 Allergy status to other drugs, medicaments and biological substances
CPT/HCPCS: 36415; 80053; 81000; 83605; 85025; 85610; 87086; 87088; 99284; J7040

== ENCOUNTER 2017-07-04 01:18 | Observation (INO) | payer MEDICARE ==
[~2017-07-04] VITALS: Ht 167.6 cm; Wt 76.0 kg
[2017-07-04 01:20] VITALS: BP 158/59; PULSE 78; RESP 18; O2SAT 95
--- NOTE | 2017-07-04 02:37 | ED.REPORT ---
HPI-General Illness Date of Service Jul 04, 2017 ED Provider: Boone Bernstein MD This is an 87-year-old female with history of dementia, CAD s/p CABG, HTN and PVD who presents to the emergency department via EMS for ground-level fall on right shoulder. Patient is a poor historian as she believe she is turning 39 soon, is in [place] and believes it is some year in the 1900s. She mentioned she fell and landed on her right shoulder and has been having significant pain since 1 hour prior to presentation. She denies hitting her head or losing consciousness. She mentioned there is pain when she is trying to move her right arm and so she is unable to move it. She denies numbness, weakness or swelling. She denies any headache, lightheadedness, dizziness, neck pain, chest pain, shortness of breath, or abdominal pain. Patient is reportedly on coumadin. Nursing Notes Stated Complaint: R SHOULDER PAIN Chief Complaint: Extremity Trauma Nursing Notes Reviewed: Yes Allergies: Coded Allergies: diltiazem (Verified Allergy, Severe, 11/09/12) lorazepam (Verified Allergy, Intermediate, 11/07/16) pantoprazole (Verified Allergy, Intermediate, 11/07/16) Scheduled Carvedilol (Carvedilol) 3.125 Mg Tablet 3.125 MG PO BID Levofloxacin (Levaquin) 250 Mg Tablet 250 MG PO DAILY Lisinopril (Lisinopril) 5 Mg Tablet 5 MG PO QAM Melatonin (Melatonin) 5 Mg Tablet 5 MG PO HS Paroxetine (Paroxetine) 20 Mg Tablet 20 MG PO QAM Warfarin Sodium (Warfarin Sodium) 5 Mg Tablet 2.5 MG PO S, M, , , Thu 5 MG TUES/SAT, 2.5 MG ALL OTHER DAYS Warfarin Sodium (Warfarin Sodium) 5 Mg Tablet 5 MG PO Tue, Sat 5 MG TUES/SAT, 2.5 MG ALL OTHER DAYS Scheduled PRN Benzonatate (Benzonatate) 100 Mg Capsule 100-200 MG PO Q8hr PRN PRN For Cough General Time Seen by MD: 01:35 Chief Complaint Other (Fall) Past Medical History Past Medical History Hyperlipidemia Hypertension CAD with CABG x2 Extensive peripheral vascular disease, status post fem-fem grafting with multiple revisions Anxiety Atherosclerosis of [place] arteries of extremities with intermittent claudication, bilateral legs Memory loss Hx of [place] Sick sinus syndrome Reports: Hyperlipidemia, Hypertension Past Surgical History Pacemaker placement stents for PVD Reports: CABG Smoking History Never Smoker Social History Lives in assisted living facility [facility] 05/21/2017 Alcohol Use: Denies alcohol use Drug Use: Denies drug use Other Social History: Good social support Occupation lives in [facility] 05/19/2017 Ambulatory Status Independent Review of Systems Full Review of Systems Constitutional: Denies: Chills, Fever Respiratory: Denies: Shortness of breath Cardiovascular: Denies: Chest pain GI: Denies: Abdominal pain Neurologic: Denies: Change LOC, Headache, Numbness, Vision change Complete sys rev & neg: except as marked. Physical Exam Vital Signs Vital Signs Date Time Temp Pulse Resp B/P Pulse Ox O2 Delivery O2 Flow Rate FiO2 07/04/17 01:20 36.8 78 18 158/59 95 Room Air Initial VS: Reviewed General/Constitutional: Well-developed, Well-nourished Head / Eyes: Atraumatic, Normocephalic ENT: Mucous membranes moist, Conjunctiva normal Neck: Supple, Non-tender Respiratory: Breath sounds normal, Clear to auscultation Cardiovascular: Regular rate & rhythm, Heart sounds normal Abdomen / GI: Soft, Non-tender, No guarding Extremities: Vascular intact, Neuro intact, No swelling Skin: Warm, Dry General/Constitutional: Awake, Alert Neurologic: CN II - XII intact Patient able to remember first name. Unaware of her current last name. Unable to answer the year or city. Unable to assess finger to nose for right extremity as patient unable to lift arm secondary to pain. Rapid movements normal. Finger to nose on left normal. Heel to arce normal. Personal Fitness Trainer strength is 4/5 on right and 5/5 on left. Interpretation & Diagnostics Lab Results Interpretation Result Diagram: 07/04/17 0320 07/04/17 0320 Test 07/04/17 03:15 07/04/17 03:20 Hold Martinez Top Tube Received (Received) White Blood Count 10.5th/mm3 (3.8-10.1) Red Blood Count 3.89mil/mm3 (3.90-5.20) Hemoglobin 12.6g/dL (12.0-15.6) Hematocrit 39.1% (35.0-46.0) Mean Corpuscular Volume 100.5fL (81-100) Mean Corpuscular Hemoglobin 32.4pg (27.0-35.0) Mean Corpuscular Hemoglobin Concent 32.2% (32.0-37.0) Red Cell Distribution Width 13.9% (12.3-15.4) Platelet Count 237bil/L (150-400) Neutrophils (%) (Auto) 79.9% (40-74) Lymphocytes (%) (Auto) 11.4% (14-46) Monocytes (%) (Auto) 6.6% (4-12) Eosinophils (%) (Auto) 0.9% (0-5) Basophils (%) (Auto) 0.4% (0-3) Prothrombin Time 17.9sec (8.1-12.5) Prothromb Time International Ratio 1.66ratio Sodium Level 141mEq/L (134-144) Potassium Level 4.2mEq/L (3.5-5.2) Chloride Level 105mEq/L (97-108) Carbon Dioxide Level 19mmol/L (18-29) Blood Urea Nitrogen 30mg/dL (8-27) Creatinine 1.09mg/dL (0.57-1.00) Estimat Glomerular Filtration Rate 68mL/min (>59) Glucose Level 173mg/dL (60-99) Calcium Level 9.1mg/dL (8.5-10.1) Total Bilirubin 0.3mg/dL (0.0-1.2) Aspartate Amino Transf (AST/SGOT) 15U/L (0-50) Alanine Aminotransferase (ALT/SGPT) 12U/L (0-32) Alkaline Phosphatase 83U/L (25-165) Total Protein 7.5g/dL (6.4-8.4) Albumin 3.7g/dL (3.4-5.0) Alcohols < 10mg/dL (0-10) X-Ray Interpretation Xray Interpretation: Impaction fracture of the right humerus X-Ray Ordered: Shoulder right CT Head Interpretation CONCLUSION: Diffuse atrophy, 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 Interpretation / Wet Read by: Interpret - Radiologist Re-Eval/Medical Decision Med Decision/Clinical Course 79-year-old female barely functioning at assisted living level with considerable additional help, has suffered a ground-level fall and fracture of her dominant arm humerus. Admitted now she is unable care for self her current level of care. This is an 87-year-old female with history of dementia, CAD s/p CABG, HTN and PVD who presents to the emergency department via EMS for ground-level fall on right shoulder. Patient had significant pain with attempting to lift her right arm. She had point tenderness at the right glenohumeral joint, without swelling or bruising. With uncertainty in her story for being here, head CT was done to rule out head trauma, which did not show any acute intracranial abnormalities. Right shoulder x-ray showed fracture to the right humerus. Patient lives at [facility] and is usually independent at baseline. In addition to her dementia, with this new fracture to her dominant arm, she will be unable to take care of herself. She is usually alone at most times. For this reason, it would be better to admit her for observation and attempt to get SNF placement for higher level of care. Consultation : Referral / Consult Name: Rd Vera MD Consulted With: Hospitalist Call Returned at: 04:50 Note: Discussed with Dr. Vera who requested to put holding orders in. Counseled Regarding: Diagnosis, Lab results, Need for admission Discharge & Departure Primary Impression: Fracture, humerus, head Encounter type: initial encounter Fracture type: closed Laterality: right Qualified Code: S42.291A - Other displaced fracture of upper end of right humerus, initial encounter for closed fracture Additional Impression: Fall from ground level Disposition: ADMITTED TO HOSPITAL Discharge Condition All VS Reviewed: Yes Condition: Stable Referrals: Natividad Rojas MD (PCP) Attending Statement As attending of record for this patient, I conducted an independent history and physical examination, and agree with the documentation per the resident note above. I supervised and was present at all times, and participated in the procedure performed for the patient. Rd Daniel DO Jul 04, 2017 02:02 LYNDA TONEY Jul 04, 2017 03:26 Boone Bernstein MD Jul 04, 2017 07:22
[2017-07-04 03:35] LABS: BASOPHILS % (AUTO) 0.4 % (0-3); EOSINOPHILS % (AUTO) 0.9 % (0-5); MONOCYTES % (AUTO) 6.6 % (4-12); Mean Corpuscular Hemoglobin 32.4 pg (27.0-35.0); Mean Corpuscular Volume 100.5 fL (81-100); NEUTROPHILS % (AUTO) 79.9 % (40-74); Platelet Count 237 bil/L (150-400)
[2017-07-04] MEDS ORDERED: Alum-Mag Hydrox-Simeth 30 mL Suspension PO PRN ×2 (05:00→13:05)
[2017-07-04] MEDS ORDERED: Polyethylene Glycol (PEG) 17 Gm Powder PO PRN ×2 (05:00→13:05)
[2017-07-04] MEDS ORDERED: Ondansetron 2 mg/mL 2 mL Inj IVPUSH PRN ×2 (05:00→13:05)
[2017-07-04 05:51] LABS: INR 1.66 ratio
[2017-07-04 06:15] VITALS: BP 170/74; PULSE 67; RESP 20; O2SAT 92
--- NOTE | 2017-07-04 06:32 | DRSVH ---
PROCEDURE: X-RAY RIGHT SHOULDER, MINIMUM TWO VIEWS ([id number]) INDICATIONS: 87 year-old female with right shoulder pain after ground level fall. TECHNIQUE: 2 views of the shoulder were acquired. COMPARISON: None. FINDINGS: Bones: Mildly impacted fracture of the right humeral neck is present. There is mild acromioclavicular joint degeneration. No suspicious bony lesions. Visualized ribs appear intact. Soft tissues: No suspicious soft tissue calcifications. There is subclavian and axillary artery ath erosclerosis. Right chest wall pacemaker is present, as well as median sternotomy wires. IMPRESSION: Mildly impacted right humeral neck fracture. Dictated by: Rishi Sanchez M.D. on 07/04/2017 at 6:29 Approved by: Rishi Sanchez M.D. on 07/04/2017 at 6:30
--- NOTE | 2017-07-04 06:40 | NUR ---
Admit Note Pt. arrived on floor at 0607. Pt. alert, somewhat confused which is baseline per family. Pt. reports pain in shoulder. Pt's peripheral IV intact and patent. Family members going over to [facility] to get list of home meds. Will continue to monitor.
--- NOTE | 2017-07-04 07:03 | DRSVH ---
PROCEDURE: CT BRAIN WITHOUT CONTRAST ([id number]) INDICATIONS: 87-year-old female with ground level fall. TECHNIQUE: Noncontrast 4.5 mm thick angled axial sections acquired from the foramen magnum to the vertex, with c oronal reformats. COMPARISON: None. FINDINGS: Preliminary interpretation rendered by [facility]. Image quality: Excellent. CSF spaces: Basal cisterns are patent. No extra-axial fluid collections. The ventricles are symmet joshua in size and shape. Brain: No intracranial bleeds or masses. There is mild cerebral volume loss for age, with resultant ventricular and sulcal prominence. There are moderate periventricular and deep white matter chronic small vessel ischemic changes. Nonacute infarct involves the right thalamic lobe. There is intracra nial internal carotid and vertebral artery atherosclerosis. Skull and face: Calvarium and visualized facial bones appear intact, without suspicious lesions. Sinuses: Visualized sinuses and mastoids are clear. IMPRESSION: 1. No acute intracranial abnormalities after fall. 2. 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 3. Moderate periventricular and deep white matter chronic small vessel ischemic change. No significant discrepancy with preliminary [facility] report. Dictated by: Rishi Sanchez M.D. on 07/04/2017 at 6:59 Approved by: Rishi Sanchez M.D. on 07/04/2017 at 7:02
[2017-07-04] MEDS ORDERED: FUR20 PO (11:12)
--- NOTE | 2017-07-04 13:23 | PCM.HPMED ---
Subjective Date of Service Jul 04, 2017 Primary Provider: Admitting Physician: Rd Vera MD Primary Care Physician: Natividad Rojas MD Attending Physician: Ricky Pires Chief Complaint: right shoulder pain History of Present Illness: 87 year old female with advanced dementia and other past medical history as noted above presents with reported fall and right shoulder pain as a result. She is very demented and thus history is limited to ER report only at this point. Per ED report: This is an 87-year-old female with history of dementia, CAD s/p CABG, HTN and PVD who presents to the emergency department via EMS for ground-level fall on right shoulder. Patient is a poor historian as she believe she is turning 39 soon, is in [place] and believes it is some year in the 1900s. She mentioned she fell and landed on her right shoulder and has been having significant pain since 1 hour prior to presentation. She denies hitting her head or losing consciousness. She mentioned there is pain when she is trying to move her right arm and so she is unable to move it. She denies numbness, weakness or swelling. She denies any headache, lightheadedness, dizziness, neck pain, chest pain, shortness of breath, or abdominal pain. Patient is reportedly on coumadin. In the ED patient's right arm was placed in a sling before admission to the hospitalist service. Currently patient complains of right shoulder pain with movement but otherwise denies any issues or complaints. She has no recollection of the events and doesn't seem to realize she is currently in the hospital. Review of Systems: Limited secondary to advanced dementia but seems to be negative except as noted in HPI Constitutional: Negative, except as otherwise mentioned in the history above. Ophthalmologic: Negative, except as otherwise mentioned in the history above. Cardiovascular: Negative, except as otherwise mentioned in the history above. Respiratory: Negative, except as otherwise mentioned in the history above. Gastrointestinal: Negative, except as otherwise mentioned in the history above. Genitourinary: Negative, except as otherwise mentioned in the history above. Musculoskeletal: Negative, except as otherwise mentioned in the history above. Neurological: Negative, except as otherwise mentioned in the history above. Psychiatric: Negative, except as otherwise mentioned in the history above. Hematologic/Lymphatic: Negative, except as otherwise mentioned in the history above. Allergic/Immunologic: Negative, except as otherwise mentioned in the history above. Allergies Coded Allergies: diltiazem (Verified Allergy, Severe, 11/09/12) lorazepam (Verified Allergy, Intermediate, 11/07/16) pantoprazole (Verified Allergy, Intermediate, 11/07/16) Home Medications Warfarin Sodium 5 Mg Tablet 2.5 Mg PO S, M, W, Th, Fri 5 MG TUES/SAT, 2.5 MG ALL OTHER DAYS Lisinopril 5 Mg Tablet 5 Mg PO QAM Paroxetine 20 Mg Tablet 20 Mg PO QAM Furosemide 20 Mg Tab 20 Mg PO DAILY Benzonatate 100 Mg Capsule 100-200 Mg PO Q8hr PRN Exam Vital Signs & I/O Vital Sign- Last 8 Hours Date Time Temp Pulse Resp B/P Pulse Ox O2 Delivery O2 Flow Rate FiO2 07/04/17 06:15 36.9 67 20 170/74 92 Room Air Lab & Micro Results Laboratory Tests Test 07/04/17 03:15 07/04/17 03:20 Hold Martinez Top Tube Received (Received) White Blood Count 10.5th/mm3 (3.8-10.1) Red Blood Count 3.89mil/mm3 (3.90-5.20) Hemoglobin 12.6g/dL (12.0-15.6) Hematocrit 39.1% (35.0-46.0) Mean Corpuscular Volume 100.5fL (81-100) Mean Corpuscular Hemoglobin 32.4pg (27.0-35.0) Mean Corpuscular Hemoglobin Concent 32.2% (32.0-37.0) Red Cell Distribution Width 13.9% (12.3-15.4) Platelet Count 237bil/L (150-400) Neutrophils (%) (Auto) 79.9% (40-74) Lymphocytes (%) (Auto) 11.4% (14-46) Monocytes (%) (Auto) 6.6% (4-12) Eosinophils (%) (Auto) 0.9% (0-5) Basophils (%) (Auto) 0.4% (0-3) Prothrombin Time 17.9sec (8.1-12.5) Prothromb Time International Ratio 1.66ratio Sodium Level 141mEq/L (134-144) Potassium Level 4.2mEq/L (3.5-5.2) Chloride Level 105mEq/L (97-108) Carbon Dioxide Level 19mmol/L (18-29) Blood Urea Nitrogen 30mg/dL (8-27) Creatinine 1.09mg/dL (0.57-1.00) Estimat Glomerular Filtration Rate 68mL/min (>59) Glucose Level 173mg/dL (60-99) Calcium Level 9.1mg/dL (8.5-10.1) Total Bilirubin 0.3mg/dL (0.0-1.2) Aspartate Amino Transf (AST/SGOT) 15U/L (0-50) Alanine Aminotransferase (ALT/SGPT) 12U/L (0-32) Alkaline Phosphatase 83U/L (25-165) Total Protein 7.5g/dL (6.4-8.4) Albumin 3.7g/dL (3.4-5.0) Alcohols < 10mg/dL (0-10) Result Diagram: 07/04/1731907/04/17 0320 PMH Hyperlipidemia Hypertension CAD with CABG x2 Extensive peripheral vascular disease, status post fem-fem grafting with multiple revisions Anxiety Atherosclerosis of [place]asta arteries of extremities with intermittent Claudication, bilateral legs Advanced dementia Hx of ND Sick sinus syndrome 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 Cardiac catheterization in January 2010. Femoral to femoral bypass surgery [address] Travis Lazo at [facility] in [place]. 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 He was also a heavy smoker. Her mother at the age of 95 Social History Hx Alcohol Use: No Hx Substance Use: No Hx Tobacco Use: No Smoking Status: Never Smoker Exam Vital Signs Vital Sign - Last Date Time Temp Pulse Resp B/P Pulse Ox O2 Delivery O2 Flow Rate FiO2 07/04/17 06:15 36.9 67 20 170/74 92 Room Air General: Alert, Cooperative, No Acute Distress, Other (disoriented x 3) Head: Normal Eyes: PERRLA, EOMI, Scleral Anicteric Nose: Mucous Membr Moist/[place] Mouth: Mucous Membr Moist/[place] Neck: Supple Chest & Lungs: Chest Wall Normal, Clear to auscultation & percussion Cardiovascular: Regular Rate/Rhythm Pulses: NL carotid, radial, femoral, DP, PT Abdomen: Non-tender, Non-distended, Normoactive bowel tones, Soft Extremities: No cyanosis/clubbing/edma bilat, Other (right shoulder tender and with limited ROM) Skin: Other (no obvious ulcer/rash) Neurological: Grossly Neurologically Intact, Normal Speech Lab and Diagnostics Result Diagram: 07/04/17 0320 07/04/17 0320 X-Rays, CTs and MRIs Date of Service: 07/04/17 0149 PROCEDURE: CT BRAIN WITHOUT CONTRAST ([id number]) IMPRESSION: 1. No acute intracranial abnormalities after fall. 2. 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 3. Moderate periventricular and deep white matter chronic small vessel ischemic change. No significant discrepancy with preliminary [facility] report. Dictated by: Rishi Sanchez M.D. on 07/04/2017 at 6:59 Approved by: Rishi Sanchez M.D. on 07/04/2017 at 7:02 Date of Service: 07/04/17 0127 PROCEDURE: X-RAY RIGHT SHOULDER, MINIMUM TWO VIEWS ([id number]) IMPRESSION: Mildly impacted right humeral neck fracture. Dictated by: Rishi Sanchez M.D. on 07/04/2017 at 6:29 Approved by: Rishi Sanchez M.D. on 07/04/2017 at 6:30 Assessment & Plan 86 year old female with a history of dementia, ND, CHF, hypertension, CAD with CABGx2, and recurrent DVT on Coumadin presents with reported ground level fall and resulting right shoulder pain # Acute mildly impacted right humeral neck fracture as result of acute ground level fall, present on admission. - Discussed with Ortho consult. No surgery recommended - Continue with sling and conservative management including pain control as needed. Will start Tylenol and IV Morphine prn for now - PT consult for further range of motion assessment and exercise # History of recurrent DVT and with anticoagulation with Coumadin - INR subtherapeutic on admission at 1.6 - ? Safety of Coumadin in this patient with advanced dementia and recurrent falls - Hold Coumadin for now and cover with SC Heparin for DVT prophylaxis - Will need to address anticoagulation with DPOA when available # Acute kidney injury. Present on admission - Likely due to pre-renal state - Hold home Lasix for today - Avoid nephrotoxic meds - Followup repeat labs in AM # Chronic Hypertension, present on admission. - Continue home dose Lisinopril in AM # History of CAD, presumed stable - She is not Aspirin, Statin or BB. Unclear why - Continue with BP control as noted above for now. # Advanced dementia, present on admission. Presumed stable and at baseline - Continua home dose Paroxetine GI Prophylaxis: Not indicated Resuscitation Status: CPR: Attempt Resuscitation (presumed full code based on previous notes and in the abscence of DPOA and advanced dementia) Time spent 60 min Ricky Pires Jul 04, 2017 13:23
[2017-07-04] MEDS: PARoxetine 20 mg Tablet PO SCH (13:46)
--- NOTE | 2017-07-04 14:31 | NUR ---
Social Work-initial assessment: Data:See initial assessment. Pt is a 87 y/o female who was admitted on 07/04/17 for R fx of humerus per H&P. Pt's insurance is Case [facility] and PCP is Natividad Rojas MD. EMR Reviewed. CARLIN met with pt, niece and nephew in law at bedside, SW role explained. pt has baseline dementia. Niece and nephew not able to answer questions. SW placed a call to son in law Melquiades to discuss further. Pt resides at [facility]. Pt uses a fww at baseline and does not drive. Pt rivera history with HH and has been to [facility] in the past. Pt has no group home care insurance or VA benefits. SW discussed DPOA/ advanced directive, pt's son in law confirms she has completed this, SW encouraged a copy to be brought in. Pt has caregivers that come in the morning, noon, and evening, but not 24/7 care a day. PT evaluation is pending. SW to follow up post PT for needs .SW provided pt with discharge planning checklist and encouraged pt to call with any questions, phone number provided. SW will continue to follow. Assessment:Pt who is independent at baseline. Plan: Pt to likely discharge back to [place] with HH vs SNF. PT evaluation is pending. SW to await MD orders. SW will continue to follow. ROZ Noble Addendum: 07/04/17 at 1437 by MARISSA EUBANKS SS Amended: Links added.
--- NOTE | 2017-07-04 15:02 | PCM.CONORT ---
Subjective Surgeon Admitting Provider:Rd Vera MD Attending Provider:Ricky Naranjo Primary Care Physician:Natividad Rojas MD Other Provider: Reason for Consultation: right shoulder pain Allergy Allergies: Coded Allergies: diltiazem (Verified Allergy, Severe, 11/09/12) lorazepam (Verified Allergy, Intermediate, 11/07/16) pantoprazole (Verified Allergy, Intermediate, 11/07/16) Medications Benzonatate (Benzonatate) 100 Mg Capsule 100-200 MG PO Q8hr PRN PRN For Cough ( Reported) Last Taken: Unknown Dose on Unknown Date & Time Furosemide (Furosemide) 20 Mg Tab 20 MG PO DAILY (Reported) Last Taken: Unknown Dose on Unknown Date & Time Lisinopril (Lisinopril) 5 Mg Tablet 5 MG PO QAM (Reported) Last Taken: Unknown Dose on Unknown Date & Time Paroxetine (Paroxetine) 20 Mg Tablet 20 MG PO QAM (Reported) Last Taken: Unknown Dose on Unknown Date & Time Warfarin Sodium (Warfarin Sodium) 5 Mg Tablet 2.5 MG PO S, , , , Thu (Reported) 5 MG TUES/SAT, 2.5 MG ALL OTHER DAYS Last Taken: Unknown Dose on Unknown Date & Time Warfarin Sodium (Warfarin Sodium) 5 Mg Tablet 5 MG PO Tue, Sat (Reported) 5 MG TUES/SAT, 2.5 MG ALL OTHER DAYS Last Taken: Unknown Dose on Unknown Date & Time Discontinued Medications Carvedilol (Carvedilol) 3.125 Mg Tablet 3.125 MG PO BID Prescribed by: ARABELLA PRATHER MD Levofloxacin (Levaquin) 250 Mg Tablet 250 MG PO DAILY Prescribed by: RICKY NARANJO MD Melatonin (Melatonin) 5 Mg Tablet 5 MG PO HS (Reported) History History of ENT Problems?: No HEENT History: Denies:: Cataracts Dysphagia Glaucoma Sinus Problem Denture Type: None Teeth Condition: Within Normal Limits Hx of Heart Problems?: Yes Cardiovascular History: Positive for:: Cardiac Surgery (CAD with CABGX2) Chest Pain Hypertension Pacemaker (in 2009, for sick sinus syndrome) Denies:: Congestive Heart Failure Edema Heart Murmur Irregular Heartbeat Thrombophlebitis Other Cardiac History: hx extensive PVD Hx of Respiratory Problem?: No Respiratory History: Denies:: Asthma COPD Chest Surgery Dyspnea Emphysema Hemoptysis Pneumonia Tuberculosis Hx Neurologic Problems?: Yes Neurological History: Positive for:: Dementia Denies:: Alzheimer's Disease CVA Dizziness Headaches Parkinson's Disease Seizures Hx of GI Problems?: No Hx of Problems?: Yes Genitourinary History: Positive for:: Urinary Tract Infection Denies:: HX of Hemodialysis Kidney Stones HX of Peritoneal Dialysis: No Female Hx: Denies:: Currently Endometriosis Pelvic Inflammatory Problems with Breasts? Hx Musculoskeletal Problems?: Yes Musculoskeletal History: Positive for:: Musculoskeletal Trauma (fall with arm fx 07/03/17) Denies:: Back Injury Joint Replacement Other History/Comment Sulaiman Wills is an 87 year old female with advanced dementia and pmhx including but not limited to CAD, PVD, hyperlipdemia and fell from standing. An orthopedic consult was requested for their ongoing symptoms of the right shoulder. The patient states that their pain is a shoulder in nature and mild/ moderate in severity localized to the deep aspect of the shoulder without radiation. This has been progressing over the past today after falling from standing. Moreover, the pain is exacerbated by activities, especially with on movement of her arm. Rest seems to improve the symptoms. There is no reports numbness, tingling, or weakness to the affected distal upper extremity. The pain does wake the patient up at night. The patient denies any fever, chills, nausea, vomiting, chest pain, shortness of breath, or calf tenderness. Previous treatment has included: Sling given in ER. Work/hobbies/sports include: None listed. Hx of Psycho/Social Problems?: Yes Psycho Social History: Positive for:: Anxiety Denies:: Bipolar Disorder Hx Depression Suicide Attempt Hx Surgeries?: Yes (pacemaker, CABG, stents for PVD) Hx Any Other Health Problems?: Yes Other History: Positive for:: Hospitalization (PNA, DVT, CABG) Denies:: Cancer Endocrine Disease Thyroid Disease History Blood Transfusions: Denies:: Blood Transfuse Reaction Blood Transfusions Hx Diabetes: No Hx Alcohol Use: NoHx Substance Use: No Smoking Status: Never Smoker Have You Smoked inLast 12 mo: No Objective Exam Lab & Micro Results Laboratory Tests Test 07/04/17 03:15 07/04/17 03:20 Hold Martinez Top Tube Received (Received) White Blood Count 10.5th/mm3 (3.8-10.1) Red Blood Count 3.89mil/mm3 (3.90-5.20) Hemoglobin 12.6g/dL (12.0-15.6) Hematocrit 39.1% (35.0-46.0) Mean Corpuscular Volume 100.5fL (81-100) Mean Corpuscular Hemoglobin 32.4pg (27.0-35.0) Mean Corpuscular Hemoglobin Concent 32.2% (32.0-37.0) Red Cell Distribution Width 13.9% (12.3-15.4) Platelet Count 237bil/L (150-400) Neutrophils (%) (Auto) 79.9% (40-74) Lymphocytes (%) (Auto) 11.4% (14-46) Monocytes (%) (Auto) 6.6% (4-12) Eosinophils (%) (Auto) 0.9% (0-5) Basophils (%) (Auto) 0.4% (0-3) Prothrombin Time 17.9sec (8.1-12.5) Prothromb Time International Ratio 1.66ratio Sodium Level 141mEq/L (134-144) Potassium Level 4.2mEq/L (3.5-5.2) Chloride Level 105mEq/L (97-108) Carbon Dioxide Level 19mmol/L (18-29) Blood Urea Nitrogen 30mg/dL (8-27) Creatinine 1.09mg/dL (0.57-1.00) Estimat Glomerular Filtration Rate 68mL/min (>59) Glucose Level 173mg/dL (60-99) Calcium Level 9.1mg/dL (8.5-10.1) Total Bilirubin 0.3mg/dL (0.0-1.2) Aspartate Amino Transf (AST/SGOT) 15U/L (0-50) Alanine Aminotransferase (ALT/SGPT) 12U/L (0-32) Alkaline Phosphatase 83U/L (25-165) Total Protein 7.5g/dL (6.4-8.4) Albumin 3.7g/dL (3.4-5.0) Alcohols < 10mg/dL (0-10) Result Diagram: 07/04/1731907/04/17319 Review of Systems: Constitutional: Negative, except as otherwise mentioned in the history above. Ophthalmologic: Negative, except as otherwise mentioned in the history above. Cardiovascular: Negative, except as otherwise mentioned in the history above. Respiratory: Negative, except as otherwise mentioned in the history above. Gastrointestinal: Negative, except as otherwise mentioned in the history above. Genitourinary: Negative, except as otherwise mentioned in the history above. Musculoskeletal: Negative, except as otherwise mentioned in the history above. Neurological: Negative, except as otherwise mentioned in the history above. Psychiatric: Negative, except as otherwise mentioned in the history above. Hematologic/Lymphatic: Negative, except as otherwise mentioned in the history above. Allergic/Immunologic: Negative, except as otherwise mentioned in the history above. H&P Surgical Exam Exam General: Alert, Cooperative, No Acute Distress, Other (disoriented x 3) Musculoskeletal: CONST: WD,WN, NAD, A+OX2 OCULAR: EOMI, no conjunctivitis/icterus ENT: no deformities, scars or lesions CARDIAC: Pulse is regular. No cyanosis,clubbing,edema RESP: regular,unlabored MSK: normal light touch median, ulnar, radial, lateral antebrachial, axillary nerve distribution. Intact AIN, PIN, u, r, ax motor. 2+ r pulse Right SHOULDER - scars, - swelling, - atrophy or asymmetry. TTP diffuse ROM R/ L Strength/Pain Deferred +painful arc, +- pain with passive stretch,+ pseudoparalysis, Signs Deferred Additional Information Two-view x-ray of the right shoulder and humerus demonstrates comminuted proximal humerus fracture with acceptable angulation H&P Preop Plan Impression right proximal humerus fracture Problems: Risks & Benefits * We have reviewed the risks and benefits as well as the alternatives to surgery. All questions were answered to the patient's satisfaction and a counseling note to that effect. The patient has provided informed consent. * I have counseled the patient regarding the deleterious effects that smoking during the perioperative period can have upon wound healing, infection rates, and the overall rate of complications. Plan NWB RUE no operative intervention indicated at this time recommend PT/OT daily elbow, hand, wrist ROM TID sling for comfort keep elevated ice as needed oral pain meds pt can f/u in 1-2 weeks after discharge for fracture care f/u in clinic please call with questions Boone Al MD Jul 04, 2017 15:02
[2017-07-04] MEDS: Heparin 5,000 Unit/mL Inj SUBQ SCH (16:23)
[2017-07-04 17:29] VITALS: BP 151/74; PULSE 73; RESP 20; O2SAT 91
--- NOTE | 2017-07-04 18:38 | NUR ---
PLAN/PAIN/ACTIVITY Patient is a two person assist to [facility] [place] [place], fall risk and yomi alarm in place. Urine output 400ml. Patient appears calm, and pain is controlled with PO Tylenol. Patient denies nausea and is eating and drinking well, right arm immobilized in sling. Plan is conservative care with no surgical repair to Fx and discharge to SNF. Addendum: 07/04/17 at 1845 by DEENA WALLACE RN Amended: Links added.
[2017-07-04 19:59] VITALS: BP 184/81; PULSE 77; RESP 18; O2SAT 92
--- NOTE | 2017-07-04 23:00 | NUR ---
Confusion Pt very confused. Repeatedly asks if we (the staff) have been in her house all day. Reoriented frequently to time and place ISIAH alarm on. Frequent rounding. Pt currently resting quietly. Sling to right arm. Ice to upper right arm Will cont to monitor
--- NOTE | 2017-07-04 23:10 | NUR ---
Transfer of Care This RN resumed care for pt. at this time. Report recieved from Brenda Sotomayor RN.
[2017-07-04 23:39] VITALS: BP 166/78; PULSE 63; RESP 16; O2SAT 93
[2017-07-05] MEDS: Heparin 5,000 Unit/mL Inj SUBQ SCH ×3 (00:11→17:38)
--- NOTE | 2017-07-05 03:05 | NUR ---
Pain/Mentation Pt. reports pain in shoulder. PO Tylenol given and effective. Pt. is confused and only alert and oriented x1. [place] bed alarm on. Will continue to monitor.
[2017-07-05 05:45] VITALS: BP 196/78; PULSE 60; RESP 16; O2SAT 93
[2017-07-05 06:02] LABS: Mean Corpuscular Hemoglobin 31.9 pg (27.0-35.0); Mean Corpuscular Volume 99.5 fL (81-100)
[2017-07-05 06:17] LABS: INR 1.55 ratio
[2017-07-05 06:20] LABS: Magnesium 1.9 mg/dL (1.6-2.6)
--- NOTE | 2017-07-05 09:15 | NUR ---
Watching TV Pt up in bed watching TV, pt asking when she can go home. Listened and reoriented pt to Hospital and broken right shoulder. Pt states she wants to get better before going home. Reminded patient PT would be working with her today. Pt agrees. Care continues.
[2017-07-05] MEDS: PARoxetine 20 mg Tablet PO SCH (10:05)
[2017-07-05 11:59] VITALS: BP 117/73; PULSE 77; RESP 18; O2SAT 92
--- NOTE | 2017-07-05 12:19 | PCM.PNMED ---
Subjective Date of Service Jul 05, 2017 Subjective Denies any new issues/complaints Exam Vital Signs Vital Sign - Last Date Time Temp Pulse Resp B/P Pulse Ox O2 Delivery O2 Flow Rate FiO2 07/05/17 11:59 36.4 77 18 117/73 92 Room Air 07/04/17 23:39 2.00 Intake and Output 07/04/17 07/04/17 07/05/17 Cumulative From/Thru 15:00 23:00 07:00 07/04/17 01:20 - 07/05/17 06:00 Intake Total 320 ml 200 ml 520 ml Output Total 400 ml 300 ml 700 ml Balance -80 ml -100 ml -180 ml Intake Oral 320 ml 200 ml 520 ml Output Urine Total 400 ml 300 ml 700 ml # Voids 2 2 # Bowel Movements 1 1 Exam General: Alert, Cooperative, No Acute Distress, Other (disoriented x 3) Head: Normal Eyes: Scleral Anicteric Nose: Mucous Membr Moist/[place] Mouth: Mucous Membr Moist/[place] Neck: Supple Chest & Lungs: Chest Wall Normal, Clear to auscultation bilat Cardiovascular: Regular Rate/Rhythm Abdomen: Non-tender, Non-distended, Normoactive bowel tones, Soft Extremities: No cyanosis/clubbing/edema bilat, Other (right shoulder tender and with limited ROM) Skin: Other (no obvious ulcer/rash) Neurological: Grossly Neurologically Intact, Normal Speech IVs and Medications Medications Reviewed: Medications were reviewed in detail Lab and Diagnostics Result Diagram: 07/05/17 0539 07/05/17 0539 X-Rays, CTs and MRIs Date of Service: 07/04/17 0149 PROCEDURE: CT BRAIN WITHOUT CONTRAST ([id number]) IMPRESSION: 1. No acute intracranial abnormalities after fall. 2. 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 3. Moderate periventricular and deep white matter chronic small vessel ischemic change. No significant discrepancy with preliminary Nightshift report. Dictated by: Rishi Sanchez M.D. on 07/04/2017 at 6:59 Approved by: Rishi Sanchez M.D. on 07/04/2017 at 7:02 Date of Service: 07/04/17 0127 PROCEDURE: X-RAY RIGHT SHOULDER, MINIMUM TWO VIEWS ([id number]) IMPRESSION: Mildly impacted right humeral neck fracture. Dictated by: Rishi Sanchez M.D. on 07/04/2017 at 6:29 Approved by: Rishi Sanchez M.D. on 07/04/2017 at 6:30 Assessment & Plan 86 year old female with a history of dementia, [place], CHF, hypertension, CAD with CABGx2, and recurrent DVT on Coumadin presents with reported ground level fall and resulting right shoulder pain # Acute mildly impacted right humeral neck fracture as result of acute ground level fall, present on admission. - Appreciate ortho consult. Will followup with recs - NWB RUE - no operative intervention indicated at this time - PT/OT - daily elbow, hand, wrist ROM TID - sling for comfort - keep elevated - ice as needed - pt can f/u in 1-2 weeks after discharge for fracture care f/u in clinic - Continue IV Morphine prn if oral pain meds not enough # History of recurrent DVT and with anticoagulation with Coumadin - INR subtherapeutic on admission at 1.6 - ? Safety of Coumadin in this patient with advanced dementia and recurrent falls - Resume Coumadin (dose per pharmacy) and cover with SC Heparin for DVT prophylaxis until INR therapeutic # Acute kidney injury. Present on admission - Likely due to pre-renal state - Resolved. - Avoid nephrotoxic meds # Chronic Hypertension, present on admission. - Continue home dose Lisinopril and Lasix. # History of CAD, presumed stable - She is not Aspirin, Statin or BB. Unclear why - Continue with BP control as noted above for now. # Advanced dementia, present on admission. Presumed stable and at baseline - Continua home dose Paroxetine Dispo: Likely SNF in am GI Prophylaxis: Not indicated VTE Mechanical Devices: Intermittant Pneumatic CD Resuscitation Status: CPR: Attempt Resuscitation (presumed full code based on previous notes and in the abscence of DPOA and advanced dementia) Ricky Pires Jul 05, 2017 12:18
--- NOTE | 2017-07-05 13:11 | PCM.CONPHA ---
Subjective Date of Service: Jul 05, 2017 right shoulder pain Reason for Pharmacy Consult: Anticoagulation Management Objective Vital Signs Date Time Temp Pulse Resp B/P Pulse Ox O2 Delivery O2 Flow Rate FiO2 07/05/17 11:59 36.4 77 18 117/73 92 Room Air 07/05/17 05:45 36.7 60 16 196/78 93 Room Air 07/04/17 23:39 36.9 63 16 166/78 93 Nasal Cannula 2.00 07/04/17 19:59 36.6 77 18 184/81 92 Room Air 07/04/17 17:29 36.8 73 20 151/74 91 Room Air Intake and Output 07/03/17 07/04/17 07/05/17 00:00 00:00 00:00 Intake Total 320 ml Output Total 400 ml Balance -80 ml Weight (Kilograms): 76.500 Height (Feet): 5 Height (Inches): 6.00 Test 07/04/17 03:15 07/04/17 03:20 07/05/17 05:39 07/05/17 07:25 Hold Martinez Top Tube Received (Received) Neutrophils (%) (Auto) 79.9% (40-74) Lymphocytes (%) (Auto) 11.4% (14-46) Monocytes (%) (Auto) 6.6% (4-12) Eosinophils (%) (Auto) 0.9% (0-5) Basophils (%) (Auto) 0.4% (0-3) Total Bilirubin 0.3mg/dL (0.0-1.2) Aspartate Amino Transf (AST/SGOT) 15U/L (0-50) Alanine Aminotransferase (ALT/SGPT) 12U/L (0-32) Alkaline Phosphatase 83U/L (25-165) Total Protein 7.5g/dL (6.4-8.4) Albumin 3.7g/dL (3.4-5.0) Alcohols < 10mg/dL (0-10) White Blood Count 7.5th/mm3 (3.8-10.1) Red Blood Count 4.04mil/mm3 (3.90-5.20) Hemoglobin 12.9g/dL (12.0-15.6) Hematocrit 40.2% (35.0-46.0) Mean Corpuscular Volume 99.5fL (81-100) Mean Corpuscular Hemoglobin 31.9pg (27.0-35.0) Mean Corpuscular Hemoglobin Concent 32.1% (32.0-37.0) Red Cell Distribution Width 14.0% (12.3-15.4) Platelet Count 243bil/L (150-400) Prothrombin Time 16.7sec (8.1-12.5) Prothromb Time International Ratio 1.55ratio Sodium Level 141mEq/L (134-144) Potassium Level 4.4mEq/L (3.5-5.2) Chloride Level 104mEq/L (97-108) Carbon Dioxide Level 21mmol/L (18-29) Blood Urea Nitrogen 19mg/dL (8-27) Creatinine 0.90mg/dL (0.57-1.00) Estimat Glomerular Filtration Rate 85mL/min (>59) Glucose Level 107mg/dL (60-99) Calcium Level 9.5mg/dL (8.5-10.1) Magnesium Level 1.9mg/dL (1.6-2.6) Hold Urine Received (Received) Assessment/Plan Assessment/Plan WARFARIN MANAGEMENT A\ 87 YO F ADMITTED FOR A RIGHT HUMERUS FRACTURE AND HISTORY OF RECURRENT DVT ON WARFARIN HOME DOSE WARFARIN 5mg TUES,SAT; 2.5mg ALL OTHER DAYS GOAL INR=2-3 CURRENT INR=1.55 HCT=40.2 UHE=517 MEDICATION INTERACTIONS: PAROXETINE CAN INCREASE RISK OF BLEEDING WHILE ON WARFARIN. P\ WILL RESTART HOME REGIMENT FOR WARFARIN 5MG PO X1 TONIGHT AND MONITOR INR DAILY WITH AM LABS Mikey Best [facility] Jul 05, 2017 13:11
--- NOTE | 2017-07-05 14:00 | NUR ---
Family in room Pt visiting with family, family wanting to speak with SW regarding SNF placement. Notified SW. Care continues.
--- NOTE | 2017-07-05 14:13 | NUR ---
DELVALLE explained and signed by pt's daughter who is at bedside. Copy of DELVALLE given to daughter.
--- NOTE | 2017-07-05 15:52 | NUR ---
Social Work- Continued D/C Planning/Multidisciplinary Rounds Data: EMR reviewed. Pt is on day 1 of hospitalization under observation. Pt discussed in multidisciplinary rounds, pt is likely to d/c tomorrow. PT worked with pt today, she was a mod assist and 2PA with quad cane. Recommending SNF at discharge. MD placed order for SNF. Pt has some caregiver assistance at home but her mobility is very poor and she remains a fall risk. Authorization will be required to d/c to SNF. Met with pt and family at bedside regarding SNF choice. SNF recommendation explained. Pt and family agree with SNF plan. SNF CHOICE LIST PROVIDED. Discussed that [facility] is only [facility] contracted facility in [facility]. Pt and family agreeable to referral to [facility]. Discussed with family that [facility] may not authorize SNF stay and then an alternative plan will have to be discussed. Discussed private pay rates for SNF. Discussed HH options. Discussed that pt has caregivers in the home periodically throughout the day but not 24/7 care. Family are hopeful that SNF will be authorized. T/C to Bossman at [facility] regarding referral. He is reviewing pt at this time. Access given. Paperwork in chart, PASRR in folder. SW will continue to follow. Assessment: Pt for whom the MD feels SNF is medically indicated. Plan: Referral placed to [facility]. [place] authorization will be required. Paperwork in chart, PASRR in folder. SW will continue to follow. Anuja Pendleton MSW
--- NOTE | 2017-07-05 17:53 | NUR ---
IV/Agitation Patient trying to climb OOB, pt states son is behind door waiting for her. Pt states daughter needs ride home. IV on bedside table during hourly rounding. IV site, CDI, no bleeding. Pt states she doesn't know how it happened. Listened to pt, reoriented pt, notified chg. Assisted with reorienting pt. Pt acknowledges the need to stay in hospital for broken shoulder. Pt grimaced when boosted in bed, pt states pain in right shoulder. Administered Acetaminophen 650 mg and 5 mg Coumadin in applesauce. Pt tolerated Heparin 5000 unit subcutaneous injection. Pt sitting upright in bed eating dinner. Pt cooperative with care. Call light in place, yomi double checked, care continues.
--- NOTE | 2017-07-05 18:08 | NUR ---
Evaluation completed. Please go to "Notes" then click on "Assessments and Notes" (bottom left corner of screen). Then select appropriate discipline tab on top of screen.
[2017-07-05 20:50] VITALS: BP 99/62; PULSE 80; RESP 16; O2SAT 99
--- NOTE | 2017-07-05 23:28 | NUR ---
IV ACCESS Per day shift report, patient took out IV, aware, ok'd for no IV access.
[2017-07-06] MEDS: Heparin 5,000 Unit/mL Inj SUBQ SCH ×2 (00:40→10:07)
[2017-07-06 06:31] LABS: INR 1.35 ratio
[2017-07-06 06:44] VITALS: BP 101/71; PULSE 84; RESP 16; O2SAT 98
[2017-07-06 10:02] VITALS: BP 150/87; PULSE 75
[2017-07-06] MEDS: PARoxetine 20 mg Tablet PO SCH (10:07)
--- NOTE | 2017-07-06 10:30 | PCM.PNMED ---
Subjective Date of Service Jul 06, 2017 Subjective Denies any new issues/complaints Exam Vital Signs Vital Sign - Last Date Time Temp Pulse Resp B/P Pulse Ox O2 Delivery O2 Flow Rate FiO2 07/06/17 10:02 75 150/87 07/06/17 06:44 36.9 16 98 Room Air 07/04/17 23:39 2.00 Intake and Output 07/05/17 07/05/17 07/06/17 Cumulative From/Thru 15:00 23:00 07:00 07/04/17 01:20 - 07/06/17 06:44 Intake Total 236 ml 756 ml Output Total 100 ml 800 ml Balance 136 ml -44 ml Intake Oral 236 ml 756 ml Output Urine Total 100 ml 800 ml # Voids 2 4 # Bowel Movements 0 1 Exam General: Alert, Cooperative, No Acute Distress Head: Normal Eyes: Scleral Anicteric Nose: Mucous Membr Moist/[place] Mouth: Mucous Membr Moist/[place] Neck: Supple Chest & Lungs: Chest Wall Normal, Clear to auscultation bilat Cardiovascular: Regular Rate/Rhythm Abdomen: Non-tender, Non-distended, Normoactive bowel tones, Soft Extremities: No cyanosis/clubbing/edema bilat, Other (right shoulder tender and with limited ROM) Skin: Other (no obvious ulcer/rash) Neurological: Grossly Neurologically Intact, Normal Speech IVs and Medications Medications Reviewed: Medications were reviewed in detail Lab and Diagnostics Result Diagram: 07/05/1739 07/05/17 0539 X-Rays, CTs and MRIs Date of Service: 07/04/17 0149 PROCEDURE: CT BRAIN WITHOUT CONTRAST ([id number]) IMPRESSION: 1. No acute intracranial abnormalities after fall. 2. 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 3. Moderate periventricular and deep white matter chronic small vessel ischemic change. No significant discrepancy with preliminary Nightshift report. Dictated by: Rishi Sanchez M.D. on 07/04/2017 at 6:59 Approved by: Rishi Sanchez M.D. on 07/04/2017 at 7:02 Date of Service: 07/04/17 0127 PROCEDURE: X-RAY RIGHT SHOULDER, MINIMUM TWO VIEWS ([id number]) IMPRESSION: Mildly impacted right humeral neck fracture. Dictated by: Rishi Sanchez M.D. on 07/04/2017 at 6:29 Approved by: Rishi Sanchez M.D. on 07/04/2017 at 6:30 Assessment & Plan 86 year old female with a history of dementia, [place], CHF, hypertension, CAD with CABGx2, and recurrent DVT on Coumadin presents with reported ground level fall and resulting right shoulder pain # Acute mildly impacted right humeral neck fracture as result of acute ground level fall, present on admission. - Appreciate ortho consult. Will followup with recs - NWB RUE - no operative intervention indicated at this time - PT/OT - daily elbow, hand, wrist ROM TID - sling for comfort - keep elevated - ice as needed - pt can f/u in 1-2 weeks after discharge for fracture care f/u in clinic - Continue IV Morphine prn if oral pain meds not enough # History of recurrent DVT and with anticoagulation with Coumadin - INR subtherapeutic on admission at 1.6 - ? Safety of Coumadin in this patient with advanced dementia and recurrent falls - Resume Coumadin (dose per pharmacy) and cover with SC Heparin for DVT prophylaxis until INR therapeutic # Acute kidney injury. Present on admission - Likely due to pre-renal state - Resolved. - Avoid nephrotoxic meds # Chronic Hypertension, present on admission. - Continue home dose Lisinopril and Lasix. # History of CAD, presumed stable - She is not Aspirin, Statin or BB. Unclear why - Continue with BP control as noted above for now. # Advanced dementia, present on admission. Presumed stable and at baseline - Continua home dose Paroxetine # Goals of care - Spoke with her son/DPOA (Tresa [phone]) regarding code status. He plans to review the paper work from prior and call back later today to discuss goals of care. Dispo: ? need for placement vs SNF. Patient does not seem to be safe for discharge home given advanced dementia and new humeral fracture. Currently she seems to be at least one if not two person assist. GI Prophylaxis: Not indicated VTE Mechanical Devices: Intermittant Pneumatic CD Resuscitation Status: CPR: Attempt Resuscitation (presumed full code based on previous notes and in the abscence of DPOA and advanced dementia) Ricky Pires Jul 06, 2017 10:30
--- NOTE | 2017-07-06 11:24 | NUR ---
SHELTER TRANSFER : Called and spoke with Nova Agee CM at [facility] and let her know patient is likely to transfer to [facility] today pending authorization. Updated [employer]ER
--- NOTE | 2017-07-06 11:37 | NUR ---
Social Work- Readiness for Discharge/Multidisciplinary Rounds Data: EMR reviewed. Pt is on day 2 of hospitalization under observation. Pt discussed in multidisciplinary rounds, pt is ready for discharge today. MD feels strongly that pt requires a SNF at discharge. T/C to Jennifer at [facility] who is agreeable to offering pt a bed at discharge pending [facility] authorization. [facility] has been contacted, awaiting authorization. Family is aware the [facility] authorization is not guaranteed. SW will continue to follow. Paperwork in chart, PASRR in folder. Assessment: Pt for whom the MD feels SNF is medically indicated. Plan: [facility] is agreeable to offering pt a bed at discharge pending [place] authorization. [facility] has been contacted, awaiting authorization. Paperwork in chart, PASRR in folder. SW will continue to follow. ROZ Benedict
[2017-07-06 13:20] VITALS: BP 114/73; PULSE 80; RESP 24; O2SAT 93
[2017-07-06] MEDS ORDERED: Acetaminophen PO (14:36)
--- NOTE | 2017-07-06 14:41 | NUR ---
Social Work-Discharge Data: EMR reviewed. Pt is on day 2 of hospitalization under observation. [facility] has authorized pt's SNF stay. Discharge orders are active at this time. T/C to Jennifer at [facility] who is agreeable to accepting pt this evening. CARLIN to create packet and fax orders. T/C to pt's son Melquiades [phone] regarding authorization and acceptance at [facility]. Melquiades would like to transport pt to [facility] rather than facility provided transportation. Melquiades states that he will be able to transport pt at 1530. Jennifer at [facility] updated and agreeable to this plan. RN notified of d/c plan, agreeable to discharge at 1530. Assessment: Pt for whom SNF is medically indicated. Plan: [facility] to accept pt this evening, pt's son to transport via POV at 1530. CARLIN created packet and faxed orders. RN, AREN, pt/family and [facility] all updated and agreeable to plan. Anuja Pendleton, DIRECTOR OF EDUCATION
--- NOTE | 2017-07-06 15:04 | NUR ---
Evaluation completed. Please go to "Notes" then click on "Assessments and Notes" (bottom left corner of screen). Then select appropriate discipline tab on top of screen.
--- NOTE | 2017-07-06 15:05 | PCM.DIMED ---
Discharge Instructions Date of Service Jul 06, 2017 Dates of Hospitalization Jul 04, 2017 at 05:27 Discharge Diagnosis Discharge Diagnosis # Acute mildly impacted right humeral neck fracture as result of acute ground level fall, present on admission. # History of recurrent DVT and with anticoagulation with Coumadin - INR subtherapeutic # Acute kidney injury. Present on admission. Resolved # Chronic Hypertension, present on admission. Stable. # History of CAD, presumed stable # Advanced dementia, present on admission. Presumed stable and at baseline Medication Instructions Additional med instructions Adjust Coumadin dose with goal INR of 2-3 Diet Discharge Diet: Heart Healthy Activity Discharge Activity: Other (per physical therapy and as noted below) Patient Instructions Patient Instructions - Non-weightbearing right upper extremity - daily elbow, hand, wrist ROM TID - sling for comfort - keep elevated - ice as needed Followup daily INR until at goal of 2-3. Follow-up plan 1. Followup with orthopedic surgery (Dr. Al) in 1-2 weeks for fracture care in [address] [address] 2. Followup with primary care provider in 4-7 days Follow-up Provider: Natividad Rojas MD Provider: Boone Al MD, Masoud Jul 06, 2017 15:05
--- NOTE | 2017-07-06 15:09 | PCM.DC.MED ---
Discharge Summary Date of Service Jul 06, 2017 Dates of Hospitalization Date of Hospital Admission Jul 04, 2017 at 05:27 Date of Discharge: Jul 06, 2017 Providers: Admitting Physician: Rd Vera MD Primary Care Physician: Natividad Rojas MD Attending Physician: Ricky Naranjo Diagnosis at Time of Discharge Diagnosis at Time of Discharge # Acute mildly impacted right humeral neck fracture as result of acute ground level fall, present on admission. # History of recurrent DVT and with anticoagulation with Coumadin - INR subtherapeutic # Acute kidney injury. Present on admission. Resolved # Chronic Hypertension, present on admission. Stable. # History of CAD, presumed stable # Advanced dementia, present on admission. Presumed stable and at baseline Consultations 1. Ortho (Dr. Al) Procedures XRay, CTs & MRIs Date of Service: 07/04/17 0149 PROCEDURE: CT BRAIN WITHOUT CONTRAST ([id number]) IMPRESSION: 1. No acute intracranial abnormalities after fall. 2. 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 3. Moderate periventricular and deep white matter chronic small vessel ischemic change. No significant discrepancy with preliminary Nightshift report. Dictated by: Rishi Sanchez M.D. on 07/04/2017 at 6:59 Approved by: Rishi Sanchez M.D. on 07/04/2017 at 7:02 Date of Service: 07/04/17 0127 PROCEDURE: X-RAY RIGHT SHOULDER, MINIMUM TWO VIEWS ([id number]) IMPRESSION: Mildly impacted right humeral neck fracture. Dictated by: Rishi Sanchez M.D. on 07/04/2017 at 6:29 Approved by: Rishi Sanchez M.D. on 07/04/2017 at 6:30 Brief History 87 year old female with advanced dementia and other past medical history as noted above presents with reported fall and right shoulder pain as a result. She is very demented and thus history is limited to ER report only at this point. Per ED report: This is an 87-year-old female with history of dementia, CAD s/p CABG, HTN and PVD who presents to the emergency department via EMS for ground-level fall on right shoulder. Patient is a poor historian as she believe she is turning 39 soon, is in [place] and believes it is some year in the 1900s. She mentioned she fell and landed on her right shoulder and has been having significant pain since 1 hour prior to presentation. She denies hitting her head or losing consciousness. She mentioned there is pain when she is trying to move her right arm and so she is unable to move it. She denies numbness, weakness or swelling. She denies any headache, lightheadedness, dizziness, neck pain, chest pain, shortness of breath, or abdominal pain. Patient is reportedly on coumadin. In the ED patient's right arm was placed in a sling before admission to the hospitalist service. Currently patient complains of right shoulder pain with movement but otherwise denies any issues or complaints. She has no recollection of the events and doesn't seem to realize she is currently in the hospital. Hospital Course # Acute mildly impacted right humeral neck fracture as result of acute ground level fall, present on admission. - Appreciate ortho consult. Will followup with recs - SELVIN RUE - no operative intervention indicated at this time - PT/OT - daily elbow, hand, wrist ROM TID - sling for comfort - keep elevated - ice as needed - pt can f/u in 1-2 weeks after discharge for fracture care f/u in clinic # History of recurrent DVT and with anticoagulation with Coumadin - INR subtherapeutic on admission at 1.6 and still subtherapeutic by day of discharge - ? Safety of Coumadin in this patient with advanced dementia and recurrent falls. Will defer further management and decision to PCP as outpatient - Resumed Coumadin (dose per pharmacy) and covered with SC Heparin for DVT prophylaxis during this hospital # Acute kidney injury. Present on admission - Likely due to pre-renal state - Resolved. # Chronic Hypertension, present on admission. Stable - Continued home dose Lisinopril and Lasix. # History of CAD, presumed stable - She is not Aspirin, Statin or BB. Unclear why - Will defer further management to PCP as outpatient # Advanced dementia, present on admission. Presumed stable and at baseline - Continued home dose Paroxetine # Goals of care - Spoke with her son/DPOA (Tresa [phone]) regarding code status. He planned to review the paper work from prior and call back later on 07/06/17 but has not contacted yet at time of discharge. Exam Vital Signs (Last) Date Time Temp Pulse Resp B/P Pulse Ox O2 Delivery O2 Flow Rate FiO2 07/06/17 13:20 36.4 80 24 114/73 93 Room Air 07/04/17 23:39 2.00 Test 07/04/17 03:15 07/04/17 03:20 07/05/17 05:39 07/06/17 00:36 Hold Martinez Top Tube Received (Received) Neutrophils (%) (Auto) 79.9% (40-74) Lymphocytes (%) (Auto) 11.4% (14-46) Monocytes (%) (Auto) 6.6% (4-12) Eosinophils (%) (Auto) 0.9% (0-5) Basophils (%) (Auto) 0.4% (0-3) Total Bilirubin 0.3mg/dL (0.0-1.2) Aspartate Amino Transf (AST/SGOT) 15U/L (0-50) Alanine Aminotransferase (ALT/SGPT) 12U/L (0-32) Alkaline Phosphatase 83U/L (25-165) Total Protein 7.5g/dL (6.4-8.4) Albumin 3.7g/dL (3.4-5.0) Alcohols < 10mg/dL (0-10) White Blood Count 7.5th/mm3 (3.8-10.1) Red Blood Count 4.04mil/mm3 (3.90-5.20) Hemoglobin 12.9g/dL (12.0-15.6) Hematocrit 40.2% (35.0-46.0) Mean Corpuscular Volume 99.5fL (81-100) Mean Corpuscular Hemoglobin 31.9pg (27.0-35.0) Mean Corpuscular Hemoglobin Concent 32.1% (32.0-37.0) Red Cell Distribution Width 14.0% (12.3-15.4) Platelet Count 243bil/L (150-400) Sodium Level 141mEq/L (134-144) Potassium Level 4.4mEq/L (3.5-5.2) Chloride Level 104mEq/L (97-108) Carbon Dioxide Level 21mmol/L (18-29) Blood Urea Nitrogen 19mg/dL (8-27) Creatinine 0.90mg/dL (0.57-1.00) Estimat Glomerular Filtration Rate 85mL/min (>59) Glucose Level 107mg/dL (60-99) Calcium Level 9.5mg/dL (8.5-10.1) Magnesium Level 1.9mg/dL (1.6-2.6) Hold Urine Received (Received) Test 07/06/17 05:30 Prothrombin Time 14.5sec (8.1-12.5) Prothromb Time International Ratio 1.35ratio Discharge Medications Discharge Medications Furosemide (Furosemide) 20 Mg Tab 20 MG PO DAILY (Reported) Lisinopril (Lisinopril) 5 Mg Tablet 5 MG PO QAM (Reported) Paroxetine (Paroxetine) 20 Mg Tablet 20 MG PO QAM (Reported) Warfarin Sodium (Warfarin Sodium) 5 Mg Tablet 2.5 MG PO S, M, W, Th, Fri ( Reported) 5 MG TUES/SAT, 2.5 MG ALL OTHER DAYS Warfarin Sodium (Warfarin Sodium) 5 Mg Tablet 5 MG PO Tue, Sat (Reported) 5 MG TUES/SAT, 2.5 MG ALL OTHER DAYS As needed ([Acetaminophen]) 325 MG TABLET 650 MG PO Q4H PRN PRN For Pain Prescribed by: RICKY NARANJO MD Benzonatate (Benzonatate) 100 Mg Capsule 100-200 MG PO Q8hr PRN PRN For Cough ( Reported) Additional med instructions Adjust Coumadin dose with goal INR of 2-3 Followup Plan Disposition: SNF Follow-up plan 1. Followup with orthopedic surgery (Dr. Al) in 1-2 weeks for fracture care in [address] [id number] 2. Followup with primary care provider in 4-7 days Discharge Diet: Heart Healthy Discharge Activity: Other (per physical therapy and as noted below) Patient Instructions - Non-weightbearing right upper extremity - daily elbow, hand, wrist ROM TID - sling for comfort - keep elevated - ice as needed Followup daily INR until at goal of 2-3. Follow-up Provider: Natividad Rojas MD Provider: Boone Al MD Time spent 30 min copies to: Natividad Rojas MD; SheBoone lugo MD, Masoud Jul 06, 2017 15:09
--- NOTE | 2017-07-06 15:34 | PCM.PHAPRO ---
Progress Warfarin Management by Pharmacy: Indication: recurrent DVT Home Dose: warfarin 5mg on TuSa and 2.5mg all other days Goal Inr: 2-3 Drug Interactions: paroxetine (affects platelets) Concurrent Anticoagulation: heparin 5000 units subq [id number] Coagulation Trends: Jul 06-Jun 1.55 1.35 -0.2 5mg 4MG Plan: will order warfarin 4mg this evening and follow Alisha Jiménez [facility] Jul 06, 2017 15:34
--- NOTE | 2017-07-06 15:45 | NUR ---
Discharge Patient discharged to [facility]. No IV to DC. Report called to Alicja. All patient belongings Arm in sling. Patient transferred from chair to W/C with 1 person assist. Son-on-law transported patient from hospital to [facility] in [place].
== END 2017-07-06 15:40 | disposition home or self-care (01) ==
LOC: SED 01:18 → OSC 05:27
PROVIDERS: ADMIT Hospitalist; ATTEND Internal Medicine
DX: S42.291A Other displaced fracture of upper end of right humerus, initial encounter for closed fracture (principal); N17.9 Acute kidney failure, unspecified; I10 Essential (primary) hypertension; I25.10 Atherosclerotic heart disease of native coronary artery without angina pectoris; F03.90 Unspecified dementia, unspecified severity, without behavioral disturbance, psychotic disturbance, mood disturbance, and anxiety; E78.5 Hyperlipidemia, unspecified; I73.9 Peripheral vascular disease, unspecified; I49.5 Sick sinus syndrome; W18.30XA Fall on same level, unspecified, initial encounter; Y93.01 Activity, walking, marching and hiking; Y92.9 Unspecified place or not applicable; Y99.8 Other external cause status; Z88.8 Allergy status to other drugs, medicaments and biological substances; Z79.01 Long term (current) use of anticoagulants; Z95.1 Presence of aortocoronary bypass graft; Z86.73 Personal history of transient ischemic attack (TIA), and cerebral infarction without residual deficits; Z95.0 Presence of cardiac pacemaker; Z86.718 Personal history of other venous thrombosis and embolism
CPT/HCPCS: 36415; 70450; 73030; 80048; 80053; 83735; 85025; 85027; 85610; 96372; 97162; 97167; 99285; G0378; G0480; G8978; G8979; J1644